=== PATIENT | male | born 1965 | race Two or more races ===

== ENCOUNTER 2018-07-16 19:21 | Inpatient (IN) | payer MEDICARE, MEDICAID ==
[~2018-07-16] VITALS: Ht 170.2 cm; Wt 71.2 kg
--- NOTE | 2018-07-16 19:29 | NUR ---
RESPIRATORY NOTE: PT. WAS BROUGHT IN VIA AMBULANCE IN STABLE CONDITION. PT HAS INCREASED HR OF 125. ALL OTHER VS ALL WNL. PT HAS A PORTEX CUFFED #6. VENT SETTING ARE TOLERATED WELL BY PT. VENT CIRCUIT AND SX TUBBING SECURE AND OUT OF THE WAY. MOTHER IS AT BEDSIDE. NO S/S OF RESPIRATORY DISTRESS NOTED AT THIS TIME. WILL CONTINUE TO MONITOR.
--- NOTE | 2018-07-16 19:45 | NUR ---
ED Nurse Note: Unable to establish iv access. marketing strategist and ERMD made aware. Collected blood; sent down to lab.
--- NOTE | 2018-07-16 20:00 | NUR ---
ED Nurse Note: 2nd blood culture sent down to lab.
--- NOTE | 2018-07-16 20:09 | Emergency Room Report ---
History of Present Illness General Chief Complaint: General Complaint Source: Family Member, EMS Present Illness HPI Patient was brought by paramedics. He's vent dependent. As they were doing some weaning maneuvers he became diaphoretic. They think he might of had a fever at the time also. Family denies any cough, vomiting, diarrhea. The patient does not have a Bhagat catheter. The urine is not changed in color. Mom feels the weaning was stressful for the patient. The patient is a vegetative state and unable to give any history. Based on records he has a history of paraplegia, respiratory failure and paraplegia. Allergies: Uncoded Allergies: SEAFOOD (Allergy, Unknown, 07/16/18) Patient History Limited by: medical condition Past Medical History: see triage record Past Surgical History: other - Tracheostomy and Gastrostomy tube Social History Narrative Pulmonary rehab [facility] Reviewed Nursing Documentation: PMH: Agreed; PSxH: Agreed Nursing Documentation-PM Past Medical History: No History, Except For Hx Hypertension: Yes - PNA Hx Gastrointestinal Problems: Yes - dysphagia, G-tube Hx Neurological Problems: Yes - Paraplegia Review of Systems All Other Systems: limited Physical Exam Vital Signs Date Time Temp Pulse Resp B/P (MAP) Pulse Ox O2 Delivery O2 Flow Rate FiO2 07/16/18 19:06 97.0 147 12 174/97 98 Mechanical Ventilator 100 Sp02 EP Interpretation: reviewed, normal General Appearance: other - Vegetative state, Chronically Ill Eyes: bilateral eye normal inspection, bilateral eye PERRL, bilateral eye other - Eyes open ENT: moist mucus membranes Neck: supple, tracheotomy Respiratory: decreased breath sounds Cardiovascular #1: regular rate, rhythm, no edema Cardiovascular #2: 2+ radial (R); 1+ femoral (R) Gastrointestinal: non tender, soft, other - Gastrostomy tube, decreased bowel sounds Genitourinary: other - Uncircumcised Musculoskeletal: other - Atrophy and extensor contracture Neurologic: motor weakness - Flaccid, sensory deficit, other - Eyes open but unresponsive to voice or painful stimuli, Psychiatric: other - Unresponsive but eyes open Skin: normal color, warm/dry Procedures Central Line Central Line : Consent: Emergent Central Line Lumen: triple Maximal Sterile Barrier Tech: yes cap, yes mask, yes sterile gown, yes sterile gloves, yes large sterile sheet, yes hand hygiene, yes chlorhexidine prep Central Line Postion: femoral (R) Anesthesia: None Complications: none Central Line Post Position: sutured, good blood return Attempts: One Patient Tolerated: Well Complications: None Progress Ultrasound used. EBL = 2 ml Medical Decision Making Diagnostic Impression: Primary Impression: NSTEMI (non-ST elevated myocardial infarction) Additional Impressions: Elevated lactic acid level Left pulmonary infiltrate on CXR Vegetative state ER Course Patient presents with a pheresis and possible fever. Differential includes sepsis, acute myocardial infarction, urinary tract infection, pneumonia amongst others. Complicated patient to evaluate as he is unable to give history. Evaluation will be with EKG, chest x-ray and labs. He's placed on the ventilator as prior vent settings and a blood gas will be obtained. Based upon lab results antibiotics may be in order. EKG with sinus tachycardia rate of 124. No acute changes. CXR with L infiltrate possible effusion. Lactate elevated. White count elevated left shift. Elevated bicarbonate. Some pyuria. Troponin positive. Aspirin given rectally. EKG without acute changes. No IV access. CVP begun. Bolus start. Antibiotics begun. Repeat lactate normal. Blood gas with combined alkalosis. Patient admitted to stepdown unit under the care of Dr. Suarez. Laboratory Tests Test 07/16/18 19:22 07/16/18 19:45 07/16/18 20:15 07/16/18 22:00 Arterial Blood pH 7.529 (7.350-7.450) Arterial Blood Partial Pressure CO2 45.4 mmHg (35.0-45.0) H Arterial Blood Partial Pressure O2 93.7 mmHg (75.0-100.0) Arterial Blood HCO3 37.0 mmol/L (22.0-26.0) H Arterial Blood Oxygen Saturation 97.5 % (95-100) Arterial Blood Base Excess 12.9 (-2-2) *H Nima Test Positive White Blood Count 11.2 K/UL (4.8-10.8) H Red Blood Count 4.18 M/UL (4.70-6.10) L Hemoglobin 11.9 G/DL (14.2-18.0) L Hematocrit 36.6 % (42.0-52.0) L Mean Corpuscular Volume 88 FL (80-99) Mean Corpuscular Hemoglobin 28.4 PG (27.0-31.0) Mean Corpuscular Hemoglobin Concent 32.4 G/DL (32.0-36.0) Red Cell Distribution Width 14.0 % (11.6-14.8) Platelet Count 460 K/UL (150-450) H Mean Platelet Volume 4.6 FL (6.5-10.1) L Neutrophils (%) (Auto) 84.1 % (45.0-75.0) H Lymphocytes (%) (Auto) 11.4 % (20.0-45.0) L Monocytes (%) (Auto) 3.9 % (1.0-10.0) Eosinophils (%) (Auto) 0.0 % (0.0-3.0) Basophils (%) (Auto) 0.6 % (0.0-2.0) Prothrombin Time 10.3 SEC (9.30-11.50) Prothrombin Time INR 1.0 (0.9-1.1) PTT 25 SEC (23-33) Sodium Level 141 MMOL/L (136-145) Potassium Level 4.1 MMOL/L (3.5-5.1) Chloride Level 97 MMOL/L (98-107) L Carbon Dioxide Level 35 MMOL/L (21-32) H Anion Gap 9 mmol/L (5-15) Blood Urea Nitrogen 34 mg/dL (7-18) H Creatinine 0.5 MG/DL (0.55-1.30) L Estimate Glomerular Filtration Rate > 60 mL/min (>60) Glucose Level 168 MG/DL (74-106) H Lactic Acid Level 2.50 mmol/L (0.4-2.0) H 1.70 mmol/L (0.66-2.22) Calcium Level 10.0 MG/DL (8.5-10.1) Magnesium Level 2.4 MG/DL (1.8-2.4) Total Bilirubin 0.3 MG/DL (0.2-1.0) Aspartate Amino Transferase (AST) 66 U/L (15-37) H Alanine Aminotransferase (ALT) 144 U/L (12-78) H Alkaline Phosphatase 169 U/L (46-116) H Total Creatine Kinase 70 U/L (26-308) Troponin I 0.325 ng/mL (0.000-0.056) Pro-B-Type Natriuretic Peptide 542 pg/mL (0-125) H Total Protein 8.2 G/DL (6.4-8.2) Albumin 3.5 G/DL (3.4-5.0) Globulin 4.7 g/dL Albumin/Globulin Ratio 0.7 (1.0-2.7) L Lipase 198 U/L (73-393) Urine Color Yellow Urine Appearance Cloudy Urine pH 5 (4.5-8.0) Urine Specific [place] 1.010 (1.005-1.035) Urine Protein 2+ (NEGATIVE) H Urine Glucose (UA) 4+ (NEGATIVE) H Urine Ketones Negative (NEGATIVE) Urine Blood 4+ (NEGATIVE) H Urine Nitrite Negative (NEGATIVE) Urine Bilirubin Negative (NEGATIVE) Urine Urobilinogen Normal MG/DL (0.0-1.0) Urine Leukocyte Esterase 1+ (NEGATIVE) H Urine RBC 30-40 /HPF (0 - 0) H Urine WBC 5-10 /HPF (0 - 0) H Urine Squamous Epithelial Cells Few /LPF (NONE/OCC) Urine Amorphous Sediment Moderate /LPF (NONE) H Urine Bacteria Moderate /HPF (NONE) H Microbiology Date/Time Source Procedure Growth Status 07/16/18 21:05 Nasal Nares Influenza Types A,B Antigen (ELADIO) - Final Complete EKG Diagnostic Results Rate: tachycardiac ST Segments: no acute changes Rhythm Strip Diag. Results EP Interpretation: yes Rhythm: no PVC's, no ectopy - sinus tachycardia, other - Sinus tachycardia Chest X-Ray Diagnostic Results Chest X-Ray Diagnostic Results : Chest X-Ray Ordered: Yes # of Views/Limited/Complete: 1 View Indication: Other EP Interpretation: Yes Interpretation: no effusion, no pneumothorax, other - LLL infiltrate with possible effusion Impression: Other Electronically Signed by: Electronically signed by Ganga Thao MD Last Vital Signs Date Time Temp Pulse Resp B/P (MAP) Pulse Ox O2 Delivery O2 Flow Rate FiO2 07/17/18 01:00 Mechanical Ventilator 07/17/18 00:45 98.2 115 14 101/56 (71) 100 07/17/18 00:45 30 Status: improved Disposition: ADMITTED INPATIENT Condition: Serious Ganga Thao MD Jul 16, 2018 20:09
--- NOTE | 2018-07-16 20:11 | NUR ---
Twice attempted to start IV line with no success, bloods abd blood cultures obtained, was informed.
--- NOTE | 2018-07-16 20:15 | NUR ---
ED Nurse Note: Urine, CRE VRE MRSA and flu collected; sent down to lab.
[2018-07-16 20:37] LABS: BASOPHILS % (AUTO) 0.6 % (0.0-2.0); HEMATOCRIT 36.6 % (42.0-52.0); HEMOGLOBIN 11.9 G/DL (14.2-18.0); LYMPHOCYTES % (AUTO) 11.4 % (20.0-45.0); MEAN CORPUSCULAR VOLUME 88 FL (80-99); MONOCYTES % (AUTO) 3.9 % (1.0-10.0); NEUTROPHILS % (AUTO) 84.1 % (45.0-75.0); PLATELET COUNT 460 K/UL (150-450); RED BLOOD COUNT 4.18 M/UL (4.70-6.10); WHITE BLOOD COUNT 11.2 K/UL (4.8-10.8)
[2018-07-16 20:48] LABS: APPEARANCE,URINE CLOUDY; BILIRUBIN, URINE NEGATIVE (NEGATIVE); COLOR,URINE YELLOW; GLUCOSE, URINE (UA) 4+ (NEGATIVE); KETONES,URINE NEGATIVE (NEGATIVE); LEUKOCYTE ESTERASE ,URINE 1+ (NEGATIVE); NITRITE,URINE NEGATIVE (NEGATIVE); PH,URINE 5 (4.5-8.0); PROTEIN,URINE 2+ (NEGATIVE); UROBILINOGEN,URINE NORMAL MG/DL (0.0-1.0)
[2018-07-16 20:48] LABS: ANION GAP 9 mmol/L (5-15); BLOOD UREA NITROGEN 34 mg/dL (7-18); CARBON DIOXIDE 35 MMOL/L (21-32); CHLORIDE 97 MMOL/L (98-107); CREATININE 0.5 MG/DL (0.55-1.30); POTASSIUM 4.1 MMOL/L (3.5-5.1); SODIUM 141 MMOL/L (136-145)
[2018-07-16 20:58] LABS: ALANINE AMINOTRANSFERASE 144 U/L (12-78); ALBUMIN 3.5 G/DL (3.4-5.0); ALBUMIN/GLOBULIN RATIO 0.7 (1.0-2.7); ALKALINE PHOSPHATASE 169 U/L (46-116); ASPARTATE AMINO TRANSFERASE 66 U/L (15-37); BILIRUBIN,TOTAL 0.3 MG/DL (0.2-1.0); CREATINE KINASE 70 U/L (26-308)
--- NOTE | 2018-07-16 21:02 | Diagnostic Imaging Report ---
History: ALOC Exam: XR CXR 1 VIEW Comparison: None available FINDINGS: Left lower lobe collapse. Possible small left pleural effusion. The right lung appears clear. Tracheostomy noted. Cardiac silhouette appears upper limits for technique. Pulmonary vascularity appears within limits. Appearance of percutaneous gastrostomy tube. IMPRESSION: Left lower lobe collapse. Possible small left pleural effusion. The right lung appears clear. Tracheostomy noted.
--- NOTE | 2018-07-16 21:05 | NUR ---
ED Nurse Note: ERMD at bedside starting central line.
[2018-07-16] MEDS ORDERED: Piperacillin/Tazobactam 3.375 GM in NS 110 ML IVPB ONE (21:15)
--- NOTE | 2018-07-16 22:00 | NUR ---
ED Nurse Note:
--- NOTE | 2018-07-16 22:00 | NUR ---
ED Nurse Note: Repeat lactic collected; sent down to lab.
[2018-07-16 22:48] VITALS: BP 174/97
--- NOTE | 2018-07-16 23:12 | NUR ---
ED Nurse Note: RT at bedside for ABG
--- NOTE | 2018-07-17 00:15 | NUR ---
TRANSFER TO FLOOR: Patient transfered to [facility] as ordered per MD Erick. Report given to MELECIO Prescott. Belongings list completed with receiving RN. NAD. KRISHNAN
[2018-07-17 00:45] VITALS: BP 101/56
--- NOTE | 2018-07-17 00:45 | NUR ---
NURSE NOTES: Received report from Sandra Mujica RN, pt. transferred from ER, pt. is awake in bed, opens eyes spontaneously- withdraws to pain, no signs or symptoms of acute cardiac or respiratory distress noted, cardiac cath lab radiology technologist placed, full body assessment done- skin intact, bed bath given and oral care provided, VS taken, pt. appears to be tolerating current vent settings well- AC 10, TV 550, Fio2 30% and peep 5- no respiratory distress noted, G tube intact and patent- no residual noted, condom cath placed and appears to be draining to gravity, RT. femoral TLC intact and patent, pt. oriented to room and pt. teaching done, family at bedside, safety measures continued, will continue with plan of care.
[2018-07-17] MEDS ORDERED: ACETAMINOP160 MG/5 M ORAL (01:46)
[2018-07-17] MEDS ORDERED: LANSOPRAZOLE30 MG ORAL (01:46)
[2018-07-17] MEDS ORDERED: PRO-AMATINE5 M1 GT (01:46)
[2018-07-17] MEDS ORDERED: SENNA-S TABLET1 EACH PO (01:46)
[2018-07-17] MEDS ORDERED: BISACODYL10 M1 RC (01:46)
[2018-07-17] MEDS ORDERED: IPRATROPIU0.2 MG/1 M HHN (01:46)
[2018-07-17] MEDS ORDERED: MAG-OXIDE400 M1 PO (01:46)
[2018-07-17] MEDS ORDERED: METAMUCIL1 PK1 GT (01:46)
[2018-07-17] MEDS ORDERED: LUBRICANT EYE1 EACH OP (01:46)
[2018-07-17] MEDS ORDERED: CHLORHEXIDINE1 EACH TP (01:46)
[2018-07-17] MEDS ORDERED: MINERAL OIL30 ML GT (01:46)
[2018-07-17] MEDS ORDERED: DOCUSATE SODIU100 M2 ORAL (01:46)
[2018-07-17] MEDS ORDERED: PYRIDOXINE HCL MC (01:46)
[2018-07-17] MEDS ORDERED: GUAIFENESI100 MG/5 M ORAL (01:46)
[2018-07-17] MEDS ORDERED: NORVASC2.5 MG ORAL (01:46)
[2018-07-17] MEDS ORDERED: PRO-AMATINE2.5 MG ORAL (01:46)
[2018-07-17] MEDS ORDERED: LIPITOR80 MG ORAL (01:46)
--- NOTE | 2018-07-17 02:00 | NUR ---
NURSE NOTES: left msg for DR. Lacy for admitting orders- waiting for call back form doctor.
--- NOTE | 2018-07-17 02:55 | NUR ---
NURSE NOTES: 2nd msg left for DR. Lacy for admitting orders- waiting for call back from doctor.
--- NOTE | 2018-07-17 03:15 | NUR ---
NURSE NOTES: Notified roundhouse supervisor Mrs. Taya Bird, message left twice for DR. Suarez for admitting orders and no call back get yet.
[2018-07-17 04:00] VITALS: BP 104/60
--- NOTE | 2018-07-17 05:14 | NUR ---
RESPIRATORY NOTE: PT, REMAINED STABLE ON CMV WITH CURRENT SETTING. VENT CIRCUIT AND SX TUBBING SECURE AND OUT OF THE WAY. SX PRN. NO S/S OF RESPIRATORY DISTRESS NOTED AT THIS TIME.
--- NOTE | 2018-07-17 06:05 | NUR ---
NURSE NOTES: 3rd msg left for DR. Suarez for admitting orders- waiting for call back from doctor.
--- NOTE | 2018-07-17 07:04 | NUR ---
NURSE NOTES: lwft a message to dr valente regarding admission orders. awaitng callback and new orders as of this time.
--- NOTE | 2018-07-17 07:05 | NUR ---
NURSE NOTES: received patient report from kalpana parada. patient is noted to be on vent machine. no acute events reported throughout the night. ST on low 100s. under the care of dr valente. message left to dr valente regarding admission orders. awaiting callback. family member in the room. will continue to monitor.
--- NOTE | 2018-07-17 07:11 | NUR ---
HAND-OFF: Report given to Rivera MAJANO, pt. remains stable and no signs and symptoms of acute distress noted- aware to f/u on admission orders.
[2018-07-17 08:00] VITALS: BP 97/63
[2018-07-17] MEDS ORDERED: guaiFENesin 100mg/5ml Liq ud GT PRN (08:15)
[2018-07-17] MEDS ORDERED: Acetaminophen 650mg/20.3ml GT PRN ×2 (08:15→08:45)
[2018-07-17] MEDS ORDERED: Albuterol/Ipratropium 3ml neb HHN PRN (08:15)
[2018-07-17] MEDS ORDERED: Sennosides 8.6mg tab GT PRN (08:15)
[2018-07-17] MEDS: Magnesium Oxide 400mg tab GT SCH (08:59)
[2018-07-17] MEDS: Pyridoxine 50mg tab GT SCH (09:00)
[2018-07-17] MEDS ORDERED: Vancomycin 1.5 GM/D5W 250ML IVPB SCH (09:00)
[2018-07-17] MEDS: D5 1/2NS 1,000 ML IV SCH ×2 (09:02→21:49)
--- NOTE | 2018-07-17 09:43 | NUR ---
CASE MANAGEMENT:REVIEW BIBA FROM [facility] PMH: TRACH VENT GTUBE CC; TACHYCARDIA SI: SEPSIS. NSTEMI. 97.0 147 12 174/97 98% ON VENT SUPPORT WBC 11.2 BUN 34 LACTIC ACID 2.50 TROPONIN 0.325 IS: 1L NS BOLUS IV LEVAQUIN IV ZOSYN ASA WA URINE CX CXR BLOOD CX : TO STEP DOWN UNIT INTERQUAL CRITERIA MET
[2018-07-17 10:04] LABS: BASOPHILS % (AUTO) 0.5 % (0.0-2.0); EOSINOPHILS % (AUTO) 0.8 % (0.0-3.0); HEMOGLOBIN 9.5 G/DL (14.2-18.0); LYMPHOCYTES % (AUTO) 31.6 % (20.0-45.0); MEAN CORPUSCULAR VOLUME 88 FL (80-99); MONOCYTES % (AUTO) 6.9 % (1.0-10.0); NEUTROPHILS % (AUTO) 60.2 % (45.0-75.0); PLATELET COUNT 380 K/UL (150-450); RED BLOOD COUNT 3.31 M/UL (4.70-6.10); RED CELL DISTRIBUTION WIDTH 14.5 % (11.6-14.8)
[2018-07-17 10:10] LABS: ALANINE AMINOTRANSFERASE 103 U/L (12-78); ALBUMIN 2.9 G/DL (3.4-5.0); ALBUMIN/GLOBULIN RATIO 0.7 (1.0-2.7); ALKALINE PHOSPHATASE 119 U/L (46-116); ANION GAP 8 mmol/L (5-15); ASPARTATE AMINO TRANSFERASE 42 U/L (15-37); BILIRUBIN,TOTAL 0.5 MG/DL (0.2-1.0); BLOOD UREA NITROGEN 36 mg/dL (7-18); CARBON DIOXIDE 34 MMOL/L (21-32); CHLORIDE 99 MMOL/L (98-107); CREATININE 0.4 MG/DL (0.55-1.30); POTASSIUM 3.2 MMOL/L (3.5-5.1); SODIUM 141 MMOL/L (136-145)
[2018-07-17] MEDS: Albuterol/Ipratropium 3ml neb HHN SCH ×3 (10:44→23:01)
[2018-07-17] MEDS ORDERED: Docusate 100mg/10ml Liq NG PRN (10:45)
[2018-07-17] MEDS: Piperacillin/Tazobactam 3.375 GM in D5W 110 ML IVPB SCH ×2 (11:25→18:21)
[2018-07-17 12:00] VITALS: BP 111/68
[2018-07-17] MEDS: Heparin 5000 units/ml inj SUBQ SCH ×2 (13:27→21:48)
--- NOTE | 2018-07-17 14:27 | NUR ---
NURSE NOTES: left a message to dr valente regarding trop level of 0.353 and k level of 3.2. awaitng callback and new orders.
[2018-07-17] MEDS ORDERED: Heparin 2000 units/Ns 1000ml INJ PRN (15:15)
[2018-07-17] MEDS ORDERED: Lidocaine 1% Plain 30 ml INJ PRN (15:15)
--- NOTE | 2018-07-17 15:15 | History & Physical ---
History and Physical History & Physicial Dictated for Int Med-Dr uSarez no. [id number]. Zeyad Simmons MD Jul 17, 2018 15:15
--- NOTE | 2018-07-17 15:45 | Consultation ---
History of Present Illness General Date patient seen: Jul 17, 2018 Chief Complaint: General Complaint Present Illness HPI 52 year old male with hx of paraplegia, Chronic respiratory failure, [facility] resident was brought in by paramedics because of episodes of fever and acute respiratory failure. Pt had leukocytosis on presentation with LLL infiltrate and admitted to [facility] for further management. Allergies: Uncoded Allergies: SEAFOOD (Allergy, Unknown, 07/16/18) Medication History Scheduled Acetaminophen 160MG/5ML* (Acetaminophen*), 5 ML ORAL EVERY 6 HOURS, (Reported) Amlodipine Besylate (Norvasc), 2.5 MG ORAL DAILY, (Reported) Atorvastatin (Lipitor), 40 MG ORAL BEDTIME, (Reported) Bisacodyl (Bisacodyl), 10 MG RC DAILY, (Reported) Carboxymethylcellulose Sodium (Lubricant Eye Drops), 1 EACH OP BID, (Reported) Guaifenesin* (Guaifenesin), 5 ML ORAL Q4H, (Reported) Lansoprazole* (Lansoprazole*), 30 MG ORAL DAILY, (Reported) Midodrine (Midodrine HCl), 2.5 MG ORAL THREE TIMES A DAY, (Reported) Scheduled PRN Ipratropium [place]wyn 0.5MG/2.5ML (Ipratropium Dillwyn 0.5MG/2.5ML), 0.5 MG HHN Q6H PRN for Shortness of Breath, (Reported) Miscellaneous Medications Chlorhexidine Gluconate (Chlorhexidine Gluconate), 1 EACH TP, (Reported) Docusate Sodium (Docusate Sodium), 100 MG ORAL, (Reported) Magnesium Oxide (Mag-Oxide), 400 MG PO, (Reported) Midodrine (Midodrine HCl), 5 MG GT, (Reported) Mineral Oil (Mineral Oil), 30 ML GT, (Reported) Psyllium (Metamucil Powder), 1 PKT GT, (Reported) Pyridoxine HCl (Pyridoxine HCl), GM MC, (Reported) Sennosides/Docusate Sodium (Senna-S Tablet), 1 EACH PO, (Reported) Patient History Healthcare decision maker see above Resuscitation status Full Code Advanced Directive on File Past Medical/Surgical History Past Medical/Surgical History: (1) Chronic respiratory failure (2) Feeding by G-tube (3) Quadriplegia (4) Vegetative state Review of Systems All Other Systems: negative except mentioned in HPI Physical Exam General Appearance: WD/WN Lines, tubes and drains: peripheral HEENT: normocephalic Neck: non-tender, normal alignment, supple Respiratory/Chest: chest wall non-tender, lungs clear Breasts: no masses Cardiovascular/Chest: normal peripheral pulses, normal rate, regular rhythm Abdomen: normal bowel sounds, non tender Genitourinary/Rectal: normal genital exam, normal prostate exam Extremities: non-tender Skin Exam: normal pigmentation Neurologic: general manager oracle data cloud II-XII grossly normal Last 24 Hour Vital Signs Date Time Temp Pulse Resp B/P (MAP) Pulse Ox O2 Delivery O2 Flow Rate FiO2 07/17/18 15:30 88 13 100 Mechanical Ventilator 30 07/17/18 15:21 83 13 100 Mechanical Ventilator 30 07/17/18 15:17 81 10 30 07/17/18 13:48 104 13 30 07/17/18 12:00 97.7 100 14 111/68 (82) 100 07/17/18 12:00 30 07/17/18 12:00 Mechanical Ventilator 07/17/18 12:00 99 07/17/18 10:54 104 13 100 Mechanical Ventilator 30 07/17/18 10:46 103 13 100 Mechanical Ventilator 30 07/17/18 10:45 103 13 30 07/17/18 09:12 105 13 30 07/17/18 08:00 Mechanical Ventilator 07/17/18 08:00 98.1 100 14 97/63 (74) 100 07/17/18 08:00 30 07/17/18 07:56 108 07/17/18 07:13 107 11 30 07/17/18 05:14 116 11 30 07/17/18 04:00 98.8 112 14 104/60 (75) 100 07/17/18 04:00 Mechanical Ventilator 07/17/18 04:00 30 07/17/18 04:00 113 07/17/18 02:41 112 11 30 07/17/18 01:00 Mechanical Ventilator 07/17/18 00:45 98.2 115 14 101/56 (71) 100 07/17/18 00:45 30 07/17/18 00:45 112 07/17/18 00:45 Mechanical Ventilator 07/17/18 00:30 115 12 30 07/17/18 00:15 97.0 87 11 174/97 98 Mechanical Ventilator 30 07/16/18 22:53 114 11 30 07/16/18 22:48 108 12 Mechanical Ventilator 30 07/16/18 22:48 97.0 87 12 174/97 98 Mechanical Ventilator 30 07/16/18 21:13 108 12 30 07/16/18 19:29 125 13 30 07/16/18 19:29 125 13 Mechanical Ventilator 30 07/16/18 19:06 97.0 147 12 174/97 98 Mechanical Ventilator 100 Intake and Output 07/16/18 07/17/18 19:00 07:00 Output Total 150 ml Balance -150 ml Output Urine Total 150 ml # Voids 2 Laboratory Tests Test 07/16/18 19:22 07/16/18 19:45 07/16/18 20:15 07/16/18 22:00 Arterial Blood pH 7.529 (7.350-7.450) Arterial Blood Partial Pressure CO2 45.4 mmHg (35.0-45.0) H Arterial Blood Partial Pressure O2 93.7 mmHg (75.0-100.0) Arterial Blood HCO3 37.0 mmol/L (22.0-26.0) H Arterial Blood Oxygen Saturation 97.5 % (95-100) Arterial Blood Base Excess 12.9 (-2-2) *H Nima Test Positive White Blood Count 11.2 K/UL (4.8-10.8) H Red Blood Count 4.18 M/UL (4.70-6.10) L Hemoglobin 11.9 G/DL (14.2-18.0) L Hematocrit 36.6 % (42.0-52.0) L Mean Corpuscular Volume 88 FL (80-99) Mean Corpuscular Hemoglobin 28.4 PG (27.0-31.0) Mean Corpuscular Hemoglobin Concent 32.4 G/DL (32.0-36.0) Red Cell Distribution Width 14.0 % (11.6-14.8) Platelet Count 460 K/UL (150-450) H Mean Platelet Volume 4.6 FL (6.5-10.1) L Neutrophils (%) (Auto) 84.1 % (45.0-75.0) H Lymphocytes (%) (Auto) 11.4 % (20.0-45.0) L Monocytes (%) (Auto) 3.9 % (1.0-10.0) Eosinophils (%) (Auto) 0.0 % (0.0-3.0) Basophils (%) (Auto) 0.6 % (0.0-2.0) Prothrombin Time 10.3 SEC (9.30-11.50) Prothromb Time International Ratio 1.0 (0.9-1.1) Activated Partial Thromboplast Time 25 SEC (23-33) Sodium Level 141 MMOL/L (136-145) Potassium Level 4.1 MMOL/L (3.5-5.1) Chloride Level 97 MMOL/L (98-107) L Carbon Dioxide Level 35 MMOL/L (21-32) H Anion Gap 9 mmol/L (5-15) Blood Urea Nitrogen 34 mg/dL (7-18) H Creatinine 0.5 MG/DL (0.55-1.30) L Estimat Glomerular Filtration Rate > 60 mL/min (>60) Glucose Level 168 MG/DL (74-106) H Lactic Acid Level 2.50 mmol/L (0.4-2.0) H 1.70 mmol/L (0.66-2.22) Calcium Level 10.0 MG/DL (8.5-10.1) Magnesium Level 2.4 MG/DL (1.8-2.4) Total Bilirubin 0.3 MG/DL (0.2-1.0) Aspartate Amino Transf (AST/SGOT) 66 U/L (15-37) H Alanine Aminotransferase (ALT/SGPT) 144 U/L (12-78) H Alkaline Phosphatase 169 U/L (46-116) H Total Creatine Kinase 70 U/L (26-308) Troponin I 0.325 ng/mL (0.000-0.056) Pro-B-Type Natriuretic Peptide 542 pg/mL (0-125) H Total Protein 8.2 G/DL (6.4-8.2) Albumin 3.5 G/DL (3.4-5.0) Globulin 4.7 g/dL Albumin/Globulin Ratio 0.7 (1.0-2.7) L Lipase 198 U/L (73-393) Urine Color Yellow Urine Appearance Cloudy Urine pH 5 (4.5-8.0) Urine Specific [place] 1.010 (1.005-1.035) Urine Protein 2+ (NEGATIVE) H Urine Glucose (UA) 4+ (NEGATIVE) H Urine Ketones Negative (NEGATIVE) Urine Blood 4+ (NEGATIVE) H Urine Nitrite Negative (NEGATIVE) Urine Bilirubin Negative (NEGATIVE) Urine Urobilinogen Normal MG/DL (0.0-1.0) Urine Leukocyte Esterase 1+ (NEGATIVE) H Urine RBC 30-40 /HPF (0 - 0) H Urine WBC 5-10 /HPF (0 - 0) H Urine Squamous Epithelial Cells Few /LPF (NONE/OCC) Urine Amorphous Sediment Moderate /LPF (NONE) H Urine Bacteria Moderate /HPF (NONE) H Test 07/17/18 09:30 White Blood Count 12.0 K/UL (4.8-10.8) H Red Blood Count 3.31 M/UL (4.70-6.10) L Hemoglobin 9.5 G/DL (14.2-18.0) L Hematocrit 29.0 % (42.0-52.0) L Mean Corpuscular Volume 88 FL (80-99) Mean Corpuscular Hemoglobin 28.8 PG (27.0-31.0) Mean Corpuscular Hemoglobin Concent 32.8 G/DL (32.0-36.0) Red Cell Distribution Width 14.5 % (11.6-14.8) Platelet Count 380 K/UL (150-450) Mean Platelet Volume 5.3 FL (6.5-10.1) L Neutrophils (%) (Auto) 60.2 % (45.0-75.0) Lymphocytes (%) (Auto) 31.6 % (20.0-45.0) Monocytes (%) (Auto) 6.9 % (1.0-10.0) Eosinophils (%) (Auto) 0.8 % (0.0-3.0) Basophils (%) (Auto) 0.5 % (0.0-2.0) Sodium Level 141 MMOL/L (136-145) Potassium Level 3.2 MMOL/L (3.5-5.1) L Chloride Level 99 MMOL/L (98-107) Carbon Dioxide Level 34 MMOL/L (21-32) H Anion Gap 8 mmol/L (5-15) Blood Urea Nitrogen 36 mg/dL (7-18) H Creatinine 0.4 MG/DL (0.55-1.30) L Estimat Glomerular Filtration Rate > 60 mL/min (>60) Glucose Level 126 MG/DL (74-106) H Calcium Level 9.0 MG/DL (8.5-10.1) Phosphorus Level 3.0 MG/DL (2.5-4.9) Magnesium Level 2.2 MG/DL (1.8-2.4) Total Bilirubin 0.5 MG/DL (0.2-1.0) Aspartate Amino Transf (AST/SGOT) 42 U/L (15-37) H Alanine Aminotransferase (ALT/SGPT) 103 U/L (12-78) H Alkaline Phosphatase 119 U/L (46-116) H Troponin I 0.353 ng/mL (0.000-0.056) Total Protein 6.8 G/DL (6.4-8.2) Albumin 2.9 G/DL (3.4-5.0) L Globulin 3.9 g/dL Albumin/Globulin Ratio 0.7 (1.0-2.7) L Microbiology Date/Time Source Procedure Growth Status 07/16/18 21:05 Nasal Nares Influenza Types A,B Antigen (ELADIO) - Final Complete 07/16/18 20:15 Urine,Clean Catch Urine Culture - Preliminary Resulted 07/16/18 20:15 Rectum Received Height (Feet): 5 Height (Inches): 7.00 Weight (Pounds): 160 Medications Current Medications Medications (Trade) Dose Ordered Sig/Becca Route PRN Reason Start Time Stop Time Status Last Admin Dose Admin Acetaminophen (Tylenol) 650 mg Q6H PRN GT Mild Pain/Temp > 100.5 07/17/18 08:45 08/16/18 08:44 Albuterol/ Ipratropium (Albuterol/ Ipratropium) 3 ml Q4H PRN HHN Shortness of Breath 07/17/18 08:15 07/22/18 08:14 Albuterol/ Ipratropium (Albuterol/ Ipratropium) 3 ml Q8HRT HHN 07/17/18 09:00 07/22/18 08:59 07/17/18 15:20 Atorvastatin Calcium (Lipitor) 40 mg BEDTIME GT 07/17/18 21:00 08/16/18 20:59 Bisacodyl (Dulcolax) 10 mg DAILYPRN PRN RECTAL Constipation 07/17/18 08:15 08/16/18 08:14 Chlorhexidine Gluconate (Lawanda-Hex 2%) 1 applic DAILY@1999 TOPIC 07/17/18 20:00 08/16/18 19:59 Chlorhexidine Gluconate (Lawanda-Hex 2%) 1 applic DAILY@1999 TOPIC 07/17/18 20:00 08/16/18 19:59 Dextrose/Sodium Chloride 1,000 ml @ 75 mls/hr [id number] IV 07/17/18 08:00 08/16/18 07:59 07/17/18 09:02 Docusate Sodium (Colace) 200 mg TWICE A DAY PRN NG Constipation 07/17/18 10:45 08/16/18 10:44 Guaifenesin (Robitussin) 100 mg Q24H PRN GT For Cough 07/17/18 08:15 08/16/18 08:14 Heparin Sodium (Porcine) (Heparin 5000 units/ml) 5,000 units EVERY 8 HOURS SUBQ 07/17/18 14:00 08/16/18 13:59 07/17/18 13:27 Heparin Sodium/ Sodium Chloride (Heparin 2000 units/Ns 1000ml premix) 2,000 unit ONCE PRN INJ PICC LINE 07/17/18 15:15 07/19/18 23:59 Lansoprazole (Prevacid) 30 mg DAILY GT 07/17/18 09:00 08/16/18 08:59 07/17/18 09:00 Lidocaine HCl (Xylocaine 1% 30ml) 30 ml ONCE PRN INJ PICC LINE 07/17/18 15:15 07/19/18 23:59 Magnesium Oxide (Mag-Ox 400mg) 400 mg DAILY GT 07/17/18 09:00 08/16/18 08:59 07/17/18 08:59 Midodrine (Pro-Amatine) 5 mg THREE TIMES A DAY GT 07/17/18 09:00 08/16/18 08:59 07/17/18 13:21 Piperacillin Sod/ Tazobactam Sod 3.375 gm/Dextrose 110 ml @ 27.5 mls/hr Q8H IVPB 07/17/18 11:00 07/24/18 10:59 07/17/18 11:25 Potassium Chloride 100 ml @ 50 mls/hr Q2H IVPB 07/17/18 15:30 07/17/18 19:29 Pyridoxine HCl (Vitamin B6) 100 mg DAILY GT 07/17/18 09:00 08/16/18 08:59 07/17/18 09:00 Sennosides (Senokot) 17.2 mg DAILY PRN GT Constipation 07/17/18 08:15 08/16/18 08:14 Vancomycin HCl (Vanco rx to dose) 1 ea DAILY MISC 07/17/18 09:00 08/16/18 08:59 Vancomycin/Sodium Chloride 250 ml @ 166.667 mls/hr Q8H IVPB 07/17/18 17:00 07/22/18 16:59 Vitamin D (Vitamin D) 1,000 intlu DAILY ORAL 07/18/18 09:00 08/17/18 08:59 Assessment/Plan Problem List: (1) Acute on chronic respiratory failure ICD Codes: J96.20 - Acute and chronic respiratory failure, unspecified whether with hypoxia or hypercapnia SNOMED: 22966436 (2) Healthcare-associated pneumonia ICD Codes: J18.9 - Pneumonia, unspecified organism SNOMED: 325887827 (3) Sepsis ICD Codes: A41.9 - Sepsis, unspecified organism SNOMED: 68713803 (4) Feeding by G-tube ICD Codes: Z93.1 - Gastrostomy status SNOMED: 238928645, 292398278 (5) Quadriplegia ICD Codes: G82.50 - Quadriplegia, unspecified SNOMED: 01147284 (6) Vegetative state ICD Codes: R40.3 - Persistent vegetative state SNOMED: 38505563 Respiratory: monitor respiratory rate, adjust FIO2, CXR Cardiac: continue to monitor HR/BP Renal: F/U I&O, keep IV fluid Infectious Disease: check cultures, continue antibiotics Gastrointestinal: continue feedings/current rate Endocrine: monitor blood sugar Hematologic: monitor H/H Neurologic: PRN Ativan Affect: PRN ativan Time Spent (Minutes): 40 Notes Reviewed: hunting and fishing guide Milena Ross MD Jul 17, 2018 15:45
--- NOTE | 2018-07-17 15:57 | Cardiac Electrophysiology PN ---
Subjective Subjective [id number] Objective Last 24 Hour Vital Signs Date Time Temp Pulse Resp B/P (MAP) Pulse Ox O2 Delivery O2 Flow Rate FiO2 07/17/18 15:30 88 13 100 Mechanical Ventilator 30 07/17/18 15:21 83 13 100 Mechanical Ventilator 30 07/17/18 15:17 81 10 30 07/17/18 13:48 104 13 30 07/17/18 12:00 97.7 100 14 111/68 (82) 100 07/17/18 12:00 30 07/17/18 12:00 Mechanical Ventilator 07/17/18 12:00 99 07/17/18 10:54 104 13 100 Mechanical Ventilator 30 07/17/18 10:46 103 13 100 Mechanical Ventilator 30 07/17/18 10:45 103 13 30 07/17/18 09:12 105 13 30 07/17/18 08:00 Mechanical Ventilator 07/17/18 08:00 98.1 100 14 97/63 (74) 100 07/17/18 08:00 30 07/17/18 07:56 108 07/17/18 07:13 107 11 30 07/17/18 05:14 116 11 30 07/17/18 04:00 98.8 112 14 104/60 (75) 100 07/17/18 04:00 Mechanical Ventilator 07/17/18 04:00 30 07/17/18 04:00 113 07/17/18 02:41 112 11 30 07/17/18 01:00 Mechanical Ventilator 07/17/18 00:45 98.2 115 14 101/56 (71) 100 07/17/18 00:45 30 07/17/18 00:45 112 07/17/18 00:45 Mechanical Ventilator 07/17/18 00:30 115 12 30 07/17/18 00:15 97.0 87 11 174/97 98 Mechanical Ventilator 30 07/16/18 22:53 114 11 30 07/16/18 22:48 108 12 Mechanical Ventilator 30 07/16/18 22:48 97.0 87 12 174/97 98 Mechanical Ventilator 30 07/16/18 21:13 108 12 30 07/16/18 19:29 125 13 30 07/16/18 19:29 125 13 Mechanical Ventilator 30 07/16/18 19:06 97.0 147 12 174/97 98 Mechanical Ventilator 100 Intake and Output 07/16/18 07/17/18 19:00 07:00 Output Total 150 ml Balance -150 ml Output Urine Total 150 ml # Voids 2 Laboratory Tests Test 07/16/18 19:22 07/16/18 19:45 07/16/18 20:15 07/16/18 22:00 Arterial Blood pH 7.529 (7.350-7.450) Arterial Blood Partial Pressure CO2 45.4 mmHg (35.0-45.0) H Arterial Blood Partial Pressure O2 93.7 mmHg (75.0-100.0) Arterial Blood HCO3 37.0 mmol/L (22.0-26.0) H Arterial Blood Oxygen Saturation 97.5 % (95-100) Arterial Blood Base Excess 12.9 (-2-2) *H Nima Test Positive White Blood Count 11.2 K/UL (4.8-10.8) H Red Blood Count 4.18 M/UL (4.70-6.10) L Hemoglobin 11.9 G/DL (14.2-18.0) L Hematocrit 36.6 % (42.0-52.0) L Mean Corpuscular Volume 88 FL (80-99) Mean Corpuscular Hemoglobin 28.4 PG (27.0-31.0) Mean Corpuscular Hemoglobin Concent 32.4 G/DL (32.0-36.0) Red Cell Distribution Width 14.0 % (11.6-14.8) Platelet Count 460 K/UL (150-450) H Mean Platelet Volume 4.6 FL (6.5-10.1) L Neutrophils (%) (Auto) 84.1 % (45.0-75.0) H Lymphocytes (%) (Auto) 11.4 % (20.0-45.0) L Monocytes (%) (Auto) 3.9 % (1.0-10.0) Eosinophils (%) (Auto) 0.0 % (0.0-3.0) Basophils (%) (Auto) 0.6 % (0.0-2.0) Prothrombin Time 10.3 SEC (9.30-11.50) Prothromb Time International Ratio 1.0 (0.9-1.1) Activated Partial Thromboplast Time 25 SEC (23-33) Sodium Level 141 MMOL/L (136-145) Potassium Level 4.1 MMOL/L (3.5-5.1) Chloride Level 97 MMOL/L (98-107) L Carbon Dioxide Level 35 MMOL/L (21-32) H Anion Gap 9 mmol/L (5-15) Blood Urea Nitrogen 34 mg/dL (7-18) H Creatinine 0.5 MG/DL (0.55-1.30) L Estimat Glomerular Filtration Rate > 60 mL/min (>60) Glucose Level 168 MG/DL (74-106) H Lactic Acid Level 2.50 mmol/L (0.4-2.0) H 1.70 mmol/L (0.66-2.22) Calcium Level 10.0 MG/DL (8.5-10.1) Magnesium Level 2.4 MG/DL (1.8-2.4) Total Bilirubin 0.3 MG/DL (0.2-1.0) Aspartate Amino Transf (AST/SGOT) 66 U/L (15-37) H Alanine Aminotransferase (ALT/SGPT) 144 U/L (12-78) H Alkaline Phosphatase 169 U/L (46-116) H Total Creatine Kinase 70 U/L (26-308) Troponin I 0.325 ng/mL (0.000-0.056) Pro-B-Type Natriuretic Peptide 542 pg/mL (0-125) H Total Protein 8.2 G/DL (6.4-8.2) Albumin 3.5 G/DL (3.4-5.0) Globulin 4.7 g/dL Albumin/Globulin Ratio 0.7 (1.0-2.7) L Lipase 198 U/L (73-393) Urine Color Yellow Urine Appearance Cloudy Urine pH 5 (4.5-8.0) Urine Specific [place] 1.010 (1.005-1.035) Urine Protein 2+ (NEGATIVE) H Urine Glucose (UA) 4+ (NEGATIVE) H Urine Ketones Negative (NEGATIVE) Urine Blood 4+ (NEGATIVE) H Urine Nitrite Negative (NEGATIVE) Urine Bilirubin Negative (NEGATIVE) Urine Urobilinogen Normal MG/DL (0.0-1.0) Urine Leukocyte Esterase 1+ (NEGATIVE) H Urine RBC 30-40 /HPF (0 - 0) H Urine WBC 5-10 /HPF (0 - 0) H Urine Squamous Epithelial Cells Few /LPF (NONE/OCC) Urine Amorphous Sediment Moderate /LPF (NONE) H Urine Bacteria Moderate /HPF (NONE) H Test 07/17/18 09:30 White Blood Count 12.0 K/UL (4.8-10.8) H Red Blood Count 3.31 M/UL (4.70-6.10) L Hemoglobin 9.5 G/DL (14.2-18.0) L Hematocrit 29.0 % (42.0-52.0) L Mean Corpuscular Volume 88 FL (80-99) Mean Corpuscular Hemoglobin 28.8 PG (27.0-31.0) Mean Corpuscular Hemoglobin Concent 32.8 G/DL (32.0-36.0) Red Cell Distribution Width 14.5 % (11.6-14.8) Platelet Count 380 K/UL (150-450) Mean Platelet Volume 5.3 FL (6.5-10.1) L Neutrophils (%) (Auto) 60.2 % (45.0-75.0) Lymphocytes (%) (Auto) 31.6 % (20.0-45.0) Monocytes (%) (Auto) 6.9 % (1.0-10.0) Eosinophils (%) (Auto) 0.8 % (0.0-3.0) Basophils (%) (Auto) 0.5 % (0.0-2.0) Sodium Level 141 MMOL/L (136-145) Potassium Level 3.2 MMOL/L (3.5-5.1) L Chloride Level 99 MMOL/L (98-107) Carbon Dioxide Level 34 MMOL/L (21-32) H Anion Gap 8 mmol/L (5-15) Blood Urea Nitrogen 36 mg/dL (7-18) H Creatinine 0.4 MG/DL (0.55-1.30) L Estimat Glomerular Filtration Rate > 60 mL/min (>60) Glucose Level 126 MG/DL (74-106) H Calcium Level 9.0 MG/DL (8.5-10.1) Phosphorus Level 3.0 MG/DL (2.5-4.9) Magnesium Level 2.2 MG/DL (1.8-2.4) Total Bilirubin 0.5 MG/DL (0.2-1.0) Aspartate Amino Transf (AST/SGOT) 42 U/L (15-37) H Alanine Aminotransferase (ALT/SGPT) 103 U/L (12-78) H Alkaline Phosphatase 119 U/L (46-116) H Troponin I 0.353 ng/mL (0.000-0.056) Total Protein 6.8 G/DL (6.4-8.2) Albumin 2.9 G/DL (3.4-5.0) L Globulin 3.9 g/dL Albumin/Globulin Ratio 0.7 (1.0-2.7) L Microbiology Date/Time Source Procedure Growth Status 07/16/18 21:05 Nasal Nares Influenza Types A,B Antigen (ELADIO) - Final Complete 07/16/18 20:15 Urine,Clean Catch Urine Culture - Preliminary Resulted 07/16/18 20:15 Rectum Received Wale Severino MD Jul 17, 2018 15:57
[2018-07-17 16:00] VITALS: BP 106/67
[2018-07-17] MEDS: Vancomycin 750mg/NS 250ml IVPB SCH (17:18)
--- NOTE | 2018-07-17 18:36 | NUR ---
NURSE NOTES: left a message to ms elena ( ) to get a consent for PICC placement,ms elena has POA. awaiting callback and new orders as of this time.
--- NOTE | 2018-07-17 19:17 | NUR ---
HAND-OFF: Report given to wally parada.
--- NOTE | 2018-07-17 19:30 | History and Physical Report ---
DATE OF ADMISSION: 07/16/2018 CHIEF COMPLAINT: The patient is a 52-year-old male, presents with complaint of fever and respiratory failure. HISTORY OF PRESENT ILLNESS: The patient is chronically vent dependent. Much of the history and physical is taken from the patient's chart. The patient is a resident of [facility]. The patient apparently was undergoing some sort of suction procedure yesterday at [facility]. The patient was also being weaned from the vent. The patient became febrile. The patient also had acute respiratory distress. The patient was transported to [facility]. The patient is admitted for respiratory distress to rule out pneumonia versus sepsis. REVIEW OF SYSTEMS: Unable to assess secondary to the patient's mental status. PAST MEDICAL HISTORY: Significant for: 1. Chronic respiratory failure, vent dependent. 2. Dysphagia. 3. Paraplegia. 4. Hypercholesterolemia. 5. Hypertension. PAST SURGICAL HISTORY: Significant for: 1. Tracheostomy placement. 2. Percutaneous endoscopic gastrostomy placement. 3. Lumbar laminectomy. CURRENT MEDICATIONS: 1. Tylenol 650 mg per G-tube q.4 h. p.r.n. 2. Atorvastatin 40 mg per G-tube daily. 3. Cholecalciferol 1000 units per G-tube daily. 4. DuoNeb nebulized q.4 h. p.r.n. 5. Lansoprazole 30 mg per G-tube daily. 6. Magnesium oxide 400 mg per G-tube daily. 7. Midodrine 5 mg per G-tube q.8 h. p.r.n. 8. Norvasc 2.5 mg per G-tube daily. ALLERGIES: To sea food. SOCIAL HISTORY: The patient is a resident of [facility]. The patient denies tobacco or alcohol use. PHYSICAL EXAMINATION: VITAL SIGNS: Temperature 97.0 degrees, respirations 12, pulse tachycardic at 147 and blood pressure 174/97. GENERAL: The patient is well-developed, well-nourished male, who is intubated. HEENT: Eyes, pupils equal and responsive to light and accommodation. Extraocular movements are intact. NECK: Supple without lymphadenopathy. CHEST: Decreased breath sounds, left lower lobe. Otherwise, without wheezes or rales. CARDIOVASCULAR: Tachycardic, regular rhythm. S1 and S2 are normal without murmurs, rubs, gallops. ABDOMEN: Soft, nontender, and nondistended. Positive bowel sounds. No evidence of hepatosplenomegaly. Currently, no rebound or guarding noted. NEUROLOGICAL: The patient is paraplegic. Cranial nerves II through XII are grossly intact without focal deficits. LABORATORY STUDIES: WBC 11.2, hemoglobin 11.9, hematocrit 36.6, and platelets 460,000. Sodium 141, potassium 4.1, chloride 97, CO2 35, BUN 34, creatinine 0.5, glucose 168, troponin elevated at 0.325. BNP elevated at 542. Chest x-ray showed left lower lobe collapse. ASSESSMENT: This is a 52-year-old male. 1. Left lower lobe collapse. 2. Fever. 3. Respiratory failure. 4. Dysphagia. 5. Paraplegia. 6. Hypercholesterolemia. 7. Hypertension. TREATMENT: 1. Respiratory failure/collapse of the left lower lobe. A pulmonary consultation has been obtained with Dr. Milena Ross. This may be secondary to pneumonia versus pleural effusion. The patient has been placed empirically on intravenous vancomycin and Zosyn. We will follow recommendations of Pulmonary. 2. Dysphagia. The patient has a G-tube in place. Continue tube feeds as above. 3. Paraplegia. 4. Hypercholesteremia. Continue Lipitor as above. 5. Hypertension. Continue Norvasc as above. Zeyad Simmons M.D. DR: Landen JOB#: [id number] CC:
[2018-07-17 20:00] VITALS: BP 103/64
[2018-07-17] MEDS ORDERED: Dyna-Hex 2% Top Sol 2oz TOPIC SCH (20:00)
--- NOTE | 2018-07-17 20:00 | NUR ---
NURSE NOTES: PICC line consent obtained at the bedside by his Meera Nichole.
[2018-07-17] MEDS: Dyna-Hex 2% Top Sol 2oz TOPIC SCH (20:23)
[2018-07-17] MEDS: Atorvastatin 20mg tab GT SCH (21:48)
--- NOTE | 2018-07-17 22:30 | Consultation ---
DATE OF CONSULTATION: 07/17/2018 CARDIOLOGY CONSULTATION REFERRING PHYSICIAN: Wilner Suarez M.D. REASON FOR CONSULTATION: Elevated troponin. HISTORY OF PRESENT ILLNESS: The patient is a 52-year-old unfortunate gentleman with history of ventilator-dependent respiratory failure, status post tracheostomy as well as dysphagia, status post PEG placement, was sent from intermediate for fever. The patient was admitted and was found to have elevated troponin. The patient is unable to provide any information. REVIEW OF SYSTEMS: Cannot be obtained. PAST MEDICAL HISTORY: As mentioned above. FAMILY HISTORY: Noncontributory. PHYSICAL EXAMINATION: VITAL SIGNS: Blood pressure is 111/68, pulse is 80, respirations 14, and temperature 97.7 degrees. HEAD AND NECK: Showed no JVD. Status post tracheostomy. LUNGS: Coarse rhonchi. CARDIOVASCULAR: Shows regular S1 and S2 with no gallop. ABDOMEN: Status post PEG. EXTREMITIES: With no pitting edema. NEUROLOGIC: He is quadriplegic and nonverbal. LABORATORY AND DIAGNOSTIC DATA: His EKG shows sinus tachycardia with no acute ST-T wave abnormalities. Labs show white count of 12, hemoglobin 9.5, hematocrit 29, and platelet count is 380,000. Sodium is 141, potassium is 3.2, BUN of 30, creatinine of 0.4. Troponin . ASSESSMENT AND PLAN: 1. Troponin elevation. The levels are flat. The patient is nonverbal. It could be due to dehydration as the patient is azotemic. We will get an echocardiogram for ejection fraction and wall motion abnormality. This patient will be surgically safe, cardiac management is not warranted. 2. Ventilator-dependent respiratory failure, status post tracheostomy. 3. Dysphagia, status post percutaneous endoscopic gastrostomy placement. 4. Hypokalemia. Potassium will be replaced. 5. Azotemia. Thank you very much, Dr. Suarez, for allowing me to participate in the care of this patient. Please do not hesitate to contact me for any questions regarding my evaluation. Wale Severino M.D. DR: Laurent JOB#: [id number] CC:
--- NOTE | 2018-07-17 22:49 | NUR ---
NURSE NOTES: Report received from MELECIO Leigh. Observed pt lying on bed, awake, open eyes but non verbal. Pt's mom at the bedside. SR with monitoring coordinator. Trach on vent, portex 6, AC 10, TD 550, FIO2 30%, saturating at 100%. GT running Osmolite 1.5 at 50cc/hr, residual of 10cc noted. Condom catheter intact and draining well. IV site on R femoral TLC, intact and patent, running D5 1/2NS at 75cc/hr. Bed in the lowest position. Side rails up x3. Will continue to monitor.
[2018-07-18] VITALS: BP 121/72
[2018-07-18] MEDS: Vancomycin 750mg/NS 250ml IVPB SCH ×2 (01:13→09:26)
[2018-07-18] MEDS: Piperacillin/Tazobactam 3.375 GM in D5W 110 ML IVPB SCH ×3 (03:28→19:16)
[2018-07-18 04:00] VITALS: BP 122/68
[2018-07-18] MEDS: Heparin 5000 units/ml inj SUBQ SCH ×3 (06:00→20:09)
[2018-07-18] MEDS: Albuterol/Ipratropium 3ml neb HHN SCH ×3 (07:00→23:24)
--- NOTE | 2018-07-18 07:20 | NUR ---
NURSE NOTES: Received patient from MELECIO Chinchilla. Patient in bed and awake. Nonverbal. quality assurance monitor in placed. On trach to vent dependent. No SOB. Respirations are even and unlaboured. Condom catheter is in placed. Right Femoral TLC in placed and asymptomatic. Gtube feeding is currently on hold. Bed in lowest position with side rails up. Will continue to follow plan of care.
--- NOTE | 2018-07-18 07:30 | NUR ---
HAND-OFF: Report given to MELECIO Mujica. Observed pt lying on the bed. No acute distress noted at this time.
[2018-07-18 08:00] VITALS: BP 119/62
[2018-07-18 08:45] LABS: HEMATOCRIT 28.6 % (42.0-52.0); HEMOGLOBIN 9.5 G/DL (14.2-18.0); LYMPHOCYTES % (AUTO) 42.4 % (20.0-45.0); MEAN CORPUSCULAR VOLUME 87 FL (80-99); MONOCYTES % (AUTO) 8.7 % (1.0-10.0); NEUTROPHILS % (AUTO) 44.8 % (45.0-75.0); PLATELET COUNT 329 K/UL (150-450); RED BLOOD COUNT 3.28 M/UL (4.70-6.10); RED CELL DISTRIBUTION WIDTH 14.4 % (11.6-14.8); WHITE BLOOD COUNT 6.4 K/UL (4.8-10.8)
[2018-07-18] MEDS: Vitamin D 1000 IU Tab ORAL SCH (08:46)
[2018-07-18] MEDS: Magnesium Oxide 400mg tab GT SCH (08:46)
[2018-07-18] MEDS: Pyridoxine 50mg tab GT SCH (08:49)
[2018-07-18] MEDS ORDERED: Heparin 2000 units/Ns 1000ml INJ PRN (09:00)
[2018-07-18] MEDS ORDERED: Lidocaine 1% Plain 30 ml INJ PRN (09:00)
[2018-07-18 09:06] LABS: ALANINE AMINOTRANSFERASE 81 U/L (12-78); ALBUMIN 2.9 G/DL (3.4-5.0); ALBUMIN/GLOBULIN RATIO 0.7 (1.0-2.7); ALKALINE PHOSPHATASE 119 U/L (46-116); ANION GAP 7 mmol/L (5-15); ASPARTATE AMINO TRANSFERASE 32 U/L (15-37); BILIRUBIN,TOTAL 0.5 MG/DL (0.2-1.0); BLOOD UREA NITROGEN 19 mg/dL (7-18); CALCIUM 8.7 MG/DL (8.5-10.1); CARBON DIOXIDE 33 MMOL/L (21-32); CHLORIDE 102 MMOL/L (98-107); CREATININE 0.3 MG/DL (0.55-1.30); POTASSIUM 2.9 MMOL/L (3.5-5.1); SODIUM 142 MMOL/L (136-145)
[2018-07-18 09:18] LABS: PHOSPHORUS 3.4 MG/DL (2.5-4.9)
--- NOTE | 2018-07-18 10:37 | Pulmonology Progress Note ---
Assessment/Plan Problems: (1) Acute on chronic respiratory failure (2) Healthcare-associated pneumonia (3) Sepsis (4) Feeding by G-tube (5) Quadriplegia (6) Vegetative state Respiratory: monitor respiratory rate, adjust FIO2 Cardiac: continue pressors, continue to monitor HR/BP Renal: F/U I&O, keep IV fluid Infectious Disease: check cultures, continue antibiotics Gastrointestinal: continue feedings/current rate Endocrine: monitor blood sugar, check HgA1C Hematologic: monitor H/H, transfuse if hgb<8.5 Neurologic: PRN Ativan, PRN Morphine, keep patient comfortable Affect: PRN ativan Prophylaxis: Heparin Notes Reviewed: partner management consultant, renal Discussed with: nurses, consultants, pillowcase cleaner Subjective ROS Limited/Unobtainable: Yes Interval Events: getting picc line shortly Constitutional: Reports: no symptoms HEENT: Repors: no symptoms Respiratory: Reports: no symptoms Allergies: Uncoded Allergies: SEAFOOD (Allergy, Unknown, 07/16/18) Objective Last 24 Hour Vital Signs Date Time Temp Pulse Resp B/P (MAP) Pulse Ox O2 Delivery O2 Flow Rate FiO2 07/18/18 09:23 87 13 30 07/18/18 08:00 Mechanical Ventilator 07/18/18 08:00 30 07/18/18 08:00 98.1 91 15 119/62 (81) 100 07/18/18 07:37 93 07/18/18 07:11 89 13 100 Mechanical Ventilator 30 07/18/18 07:00 91 12 100 Mechanical Ventilator 30 07/18/18 06:58 94 11 30 07/18/18 05:12 95 11 30 07/18/18 04:00 87 07/18/18 04:00 97.7 89 13 122/68 (86) 100 07/18/18 04:00 Mechanical Ventilator 07/18/18 04:00 30 07/18/18 03:21 84 13 30 07/18/18 01:06 88 15 30 07/18/18 00:00 97.7 93 13 121/72 (88) 100 07/18/18 00:00 86 07/18/18 00:00 Mechanical Ventilator 07/17/18 23:08 89 12 100 Mechanical Ventilator 30 07/17/18 23:02 90 12 30 07/17/18 23:01 90 13 100 Mechanical Ventilator 30 07/17/18 20:37 87 12 30 1/6/19 20:00 83 07/17/18 20:00 98.2 82 14 103/64 (77) 100 07/17/18 20:00 Mechanical Ventilator 07/17/18 20:00 30 07/17/18 19:45 90 10 30 07/17/18 17:22 91 10 30 07/17/18 16:00 30 07/17/18 16:00 97.3 100 14 106/67 (80) 100 07/17/18 16:00 86 07/17/18 16:00 Mechanical Ventilator 07/17/18 15:30 88 13 100 Mechanical Ventilator 30 07/17/18 15:21 83 13 100 Mechanical Ventilator 30 07/17/18 15:17 81 10 30 07/17/18 13:48 104 13 30 07/17/18 12:00 97.7 100 14 111/68 (82) 100 07/17/18 12:00 30 07/17/18 12:00 Mechanical Ventilator 07/17/18 12:00 99 07/17/18 10:54 104 13 100 Mechanical Ventilator 30 07/17/18 10:46 103 13 100 Mechanical Ventilator 30 07/17/18 10:45 103 13 30 Intake and Output 07/17/18 07/18/18 19:00 07:00 Intake Total 1256.667 ml 1690 ml Output Total 400 ml 1350 ml Balance 856.667 ml 340 ml Intake Free Water 40 ml 100 ml IV Total 1026.667 ml 1260 ml Tube Feeding 190 ml 330 ml Output Urine Total 400 ml 1350 ml # Bowel Movements 2 General Appearance: WD/WN HEENT: normocephalic, atraumatic Respiratory/Chest: chest wall non-tender, lungs clear Cardiovascular: normal peripheral pulses, normal rate Abdomen: normal bowel sounds, soft, non tender Genitourinary: normal external genitalia Extremities: no cyanosis Skin: no lesions Neurologic/Psychiatric: hydraulic billet maker II-XII grossly normal Lymphatic: no neck adenopathy Microbiology Date/Time Source Procedure Growth Status 07/16/18 20:00 Blood Blood Culture - Preliminary NO GROWTH AFTER 24 HOURS Resulted 07/16/18 19:45 Blood Blood Culture - Preliminary NO GROWTH AFTER 24 HOURS Resulted 07/16/18 21:05 Nasal Nares Influenza Types A,B Antigen (ELADIO) - Final Complete 07/16/18 20:15 Urine,Clean Catch Urine Culture - Preliminary Mixed Urogenital Contaminants Resulted 07/16/18 20:15 Rectum Received Laboratory Tests 07/18/18 08:00: White Blood Count 6.4, Red Blood Count 3.28L, Hemoglobin 9.5L, Hematocrit 28.6L , Mean Corpuscular Volume 87, Mean Corpuscular Hemoglobin 28.9, Mean Corpuscular Hemoglobin Concent 33.2, Red Cell Distribution Width 14.4, Platelet Count 329, Mean Platelet Volume 5.4L, Neutrophils (%) (Auto) 44.8L, Lymphocytes (%) (Auto) 42.4, Monocytes (%) (Auto) 8.7, Eosinophils (%) (Auto) 3.0, Basophils (%) (Auto) 1.0, Sodium Level 142, Potassium Level 2.9L, Chloride Level 102, Carbon Dioxide Level 33H, Anion Gap 7, Blood Urea Nitrogen 19H, Creatinine 0.3L, Estimat Glomerular Filtration Rate > 60, Glucose Level 122H, Calcium Level 8.7, Phosphorus Level 3.4, Magnesium Level 2.1, Total Bilirubin 0.5, Aspartate Amino Transf (AST/SGOT) 32, Alanine Aminotransferase (ALT/SGPT) 81H, Alkaline Phosphatase 119H, Troponin I 0.262H, Total Protein 6.9, Albumin 2.9L, Globulin 4.0, Albumin/Globulin Ratio 0.7L, Vancomycin Level Trough 23.3H Current Medications Medications (Trade) Dose Ordered Sig/Becca Route PRN Reason Start Time Stop Time Status Last Admin Dose Admin Acetaminophen (Tylenol) 650 mg Q6H PRN GT Mild Pain/Temp > 100.5 07/17/18 08:45 08/16/18 08:44 Albuterol/ Ipratropium (Albuterol/ Ipratropium) 3 ml Q4H PRN HHN Shortness of Breath 07/17/18 08:15 07/22/18 08:14 Albuterol/ Ipratropium (Albuterol/ Ipratropium) 3 ml Q8HRT HHN 07/17/18 09:00 07/22/18 08:59 07/18/18 07:00 Atorvastatin Calcium (Lipitor) 40 mg BEDTIME GT 07/17/18 21:00 08/16/18 20:59 07/17/18 21:48 Bisacodyl (Dulcolax) 10 mg DAILYPRN PRN RECTAL Constipation 07/17/18 08:15 08/16/18 08:14 Chlorhexidine Gluconate (Lawanda-Hex 2%) 1 applic DAILY@2000 TOPIC 07/17/18 20:00 08/16/18 19:59 07/17/18 20:23 Dextrose/Sodium Chloride 1,000 ml @ 75 mls/hr [id number] IV 07/17/18 08:00 08/16/18 07:59 07/17/18 21:49 Docusate Sodium (Colace) 200 mg TWICE A DAY PRN NG Constipation 07/17/18 10:45 08/16/18 10:44 Guaifenesin (Robitussin) 100 mg Q24H PRN GT For Cough 07/17/18 08:15 08/16/18 08:14 Heparin Sodium (Porcine) (Heparin 5000 units/ml) 5,000 units EVERY 8 HOURS SUBQ 07/17/18 14:00 08/16/18 13:59 07/17/18 13:27 Heparin Sodium/ Sodium Chloride (Heparin 2000 units/Ns 1000ml premix) 2,000 unit ONCE PRN INJ PICC LINE 07/17/18 15:15 07/19/18 23:59 Heparin Sodium/ Sodium Chloride (Heparin 2000 units/Ns 1000ml premix) 2,000 unit ONCE PRN INJ PICC LINE 07/18/18 09:00 07/18/18 23:59 Lansoprazole (Prevacid) 30 mg DAILY GT 07/17/18 09:00 08/16/18 08:59 07/18/18 08:45 Lidocaine HCl (Xylocaine 1% 30ml) 30 ml ONCE PRN INJ PICC LINE 07/17/18 15:15 07/19/18 23:59 Lidocaine HCl (Xylocaine 1% 30ml) 30 ml ONCE PRN INJ PICC LINE 07/18/18 09:00 07/18/18 23:59 Magnesium Oxide (Mag-Ox 400mg) 400 mg DAILY GT 07/17/18 09:00 08/16/18 08:59 07/18/18 08:46 Midodrine (Pro-Amatine) 5 mg THREE TIMES A DAY GT 07/17/18 09:00 08/16/18 08:59 07/18/18 08:46 Piperacillin Sod/ Tazobactam Sod 3.375 gm/Dextrose 110 ml @ 27.5 mls/hr Q8H IVPB 07/17/18 11:00 07/24/18 10:59 07/18/18 03:28 Potassium Chloride (K-Dur) 40 meq Q4H GT 07/18/18 10:30 07/18/18 14:31 Pyridoxine HCl (Vitamin B6) 100 mg DAILY GT 07/17/18 09:00 08/16/18 08:59 07/18/18 08:49 Sennosides (Senokot) 17.2 mg DAILY PRN GT Constipation 07/17/18 08:15 08/16/18 08:14 Vancomycin HCl (Vanco rx to dose) 1 ea DAILY MISC 07/17/18 09:00 08/16/18 08:59 Vancomycin HCl 1 gm/Dextrose 275 ml @ 183.708 mls/hr Q12H IVPB 07/18/18 13:00 07/23/18 12:59 Vitamin D (Vitamin D) 1,000 intlu DAILY ORAL 07/18/18 09:00 08/17/18 08:59 07/18/18 08:46 Milena Ross MD Jul 18, 2018 10:37
[2018-07-18] MEDS: D5 1/2NS 1,000 ML IV SCH (10:54)
--- NOTE | 2018-07-18 11:05 | NUR ---
RD ASSESSMENT & RECOMMENDATIONS SEE CARE ACTIVITY FOR COMPLETE ASSESSMENT DAILY ESTIMATED NEEDS: Needs based on Critical care, paraplegia, TF PAPER INSERTER 72.7kg 20-25 kcals/kg 0724-4465- total kcals 1.2-1.5 g protein/kg 87-109 g total protein 20-30 mL/kg 0894-0346 total fluid mLs NUTRITION DIAGNOSIS: Swallowing difficulty r/t respiratory status as evidenced by pt w/ h/o spinal cord injury, paraplegia, trach dep and PEG dep. CURRENT TF: Glucerna 1.5 @50ml/hr x20 hrs ENTERAL NUTRITION RECOMMENDATIONS: Osmolite 1.5 @50ml/hr x22 hrs + Prosource BID to provide 1100ml, 1650 kcal, 69g + 22g prot, 838ml free H2O - Rec to INCREASE TF RUN TIME TO 22 HRS/DAY - Add PROSOURCE 1 pack BID to better meet est prot needs - Flush per MD/ HOB over 30 degrees ADDITIONAL RECOMMENDATIONS: 1) Obtain weekly Calibrated bed scale wts 2) Check lytes daily/ replete as needed (Low K- 2.9) 3) Add PROSOURCE BID via peg
[2018-07-18 12:00] VITALS: BP 123/73
--- NOTE | 2018-07-18 12:05 | Diagnostic Imaging Report ---
Indications: Needs long-term IV access Technique: Procedure performed at bedside. Procedural timeout performed. Ultrasound confirms patent compressible left basilic vein. Total sterile technique, including sterile probe cover and sterile gel, sterile gloves, hand hygiene, hat, mask,, sterile gown, large sterile drape, and preparation with 2% chlorhexidine utilized. Local anesthesia with 1% lidocaine. Under real-time ultrasound guidance, puncture basilic vein using 21-gauge needle, passage 0.018 guidewire, exchange for 5 Greek peel-away sheath. 5 Greek Bard dual-lumen power PICC cut to 47 cm. It was inserted through the peel-away sheath. Peel-away sheath and guidewire removed. Catheter fixed to the skin. Both catheter ports aspirated and flushed. Patient tolerated procedure well, without immediate complication. Followup chest x-ray obtained, documents catheter tip position at the cavoatrial junction Impression: Successful bedside placement of left arm PICC under sonographic guidance, as described above.
[2018-07-18] MEDS: Vancomycin 1gm in D5W 275ml IVPB SCH (13:03)
[2018-07-18 16:00] VITALS: BP 130/76
--- NOTE | 2018-07-18 16:10 | Cardiac Electrophysiology PN ---
Assessment/Plan Assessment/Plan 1. Troponin elevation. The levels are flat. The patient is nonverbal. It could be due to dehydration. Echo pending 2. Ventilator-dependent respiratory failure, status post tracheostomy. 3. Dysphagia, status post percutaneous endoscopic gastrostomy placement. 4. Hypokalemia. 5. Azotemia. Subjective Subjective No new events. Mother at bedside. On the vent non verbal. Objective Last 24 Hour Vital Signs Date Time Temp Pulse Resp B/P (MAP) Pulse Ox O2 Delivery O2 Flow Rate FiO2 07/18/18 15:33 84 12 100 Mechanical Ventilator 30 07/18/18 15:23 84 11 30 07/18/18 15:22 83 11 99 Mechanical Ventilator 30 07/18/18 13:29 87 12 30 07/18/18 12:00 Mechanical Ventilator 07/18/18 12:00 30 07/18/18 12:00 97.9 96 15 123/73 (90) 99 07/18/18 11:34 95 07/18/18 11:19 91 14 30 07/18/18 09:23 87 13 30 07/18/18 08:00 Mechanical Ventilator 07/18/18 08:00 30 07/18/18 08:00 98.1 91 15 119/62 (81) 100 07/18/18 07:37 93 07/18/18 07:11 89 13 100 Mechanical Ventilator 30 07/18/18 07:00 91 12 100 Mechanical Ventilator 30 07/18/18 06:58 94 11 30 07/18/18 05:12 95 11 30 07/18/18 04:00 87 07/18/18 04:00 97.7 89 13 122/68 (86) 100 07/18/18 04:00 Mechanical Ventilator 07/18/18 04:00 30 07/18/18 03:21 84 13 30 07/18/18 01:06 88 15 30 07/18/18 00:00 97.7 93 13 121/72 (88) 100 07/18/18 00:00 86 07/18/18 00:00 Mechanical Ventilator 07/17/18 23:08 89 12 100 Mechanical Ventilator 30 07/17/18 23:02 90 12 30 07/17/18 23:01 90 13 100 Mechanical Ventilator 30 07/17/18 20:37 87 12 30 07/17/18 20:00 83 07/17/18 20:00 98.2 82 14 103/64 (77) 100 07/17/18 20:00 Mechanical Ventilator 07/17/18 20:00 30 07/17/18 19:45 90 10 30 07/17/18 17:22 91 10 30 Intake and Output 07/17/18 07/18/18 19:00 07:00 Intake Total 1256.667 ml 1690 ml Output Total 400 ml 1350 ml Balance 856.667 ml 340 ml Intake Free Water 40 ml 100 ml IV Total 1026.667 ml 1260 ml Tube Feeding 190 ml 330 ml Output Urine Total 400 ml 1350 ml # Bowel Movements 2 Laboratory Tests Test 07/18/18 08:00 White Blood Count 6.4 K/UL (4.8-10.8) Red Blood Count 3.28 M/UL (4.70-6.10) L Hemoglobin 9.5 G/DL (14.2-18.0) L Hematocrit 28.6 % (42.0-52.0) L Mean Corpuscular Volume 87 FL (80-99) Mean Corpuscular Hemoglobin 28.9 PG (27.0-31.0) Mean Corpuscular Hemoglobin Concent 33.2 G/DL (32.0-36.0) Red Cell Distribution Width 14.4 % (11.6-14.8) Platelet Count 329 K/UL (150-450) Mean Platelet Volume 5.4 FL (6.5-10.1) L Neutrophils (%) (Auto) 44.8 % (45.0-75.0) L Lymphocytes (%) (Auto) 42.4 % (20.0-45.0) Monocytes (%) (Auto) 8.7 % (1.0-10.0) Eosinophils (%) (Auto) 3.0 % (0.0-3.0) Basophils (%) (Auto) 1.0 % (0.0-2.0) Sodium Level 142 MMOL/L (136-145) Potassium Level 2.9 MMOL/L (3.5-5.1) L Chloride Level 102 MMOL/L (98-107) Carbon Dioxide Level 33 MMOL/L (21-32) H Anion Gap 7 mmol/L (5-15) Blood Urea Nitrogen 19 mg/dL (7-18) H Creatinine 0.3 MG/DL (0.55-1.30) L Estimat Glomerular Filtration Rate > 60 mL/min (>60) Glucose Level 122 MG/DL (74-106) H Calcium Level 8.7 MG/DL (8.5-10.1) Phosphorus Level 3.4 MG/DL (2.5-4.9) Magnesium Level 2.1 MG/DL (1.8-2.4) Total Bilirubin 0.5 MG/DL (0.2-1.0) Aspartate Amino Transf (AST/SGOT) 32 U/L (15-37) Alanine Aminotransferase (ALT/SGPT) 81 U/L (12-78) H Alkaline Phosphatase 119 U/L (46-116) H Troponin I 0.262 ng/mL (0.000-0.056) Total Protein 6.9 G/DL (6.4-8.2) Albumin 2.9 G/DL (3.4-5.0) L Globulin 4.0 g/dL Albumin/Globulin Ratio 0.7 (1.0-2.7) L Vancomycin Level Trough 23.3 ug/mL (5.0-12.0) H Microbiology Date/Time Source Procedure Growth Status 07/16/18 20:00 Blood Blood Culture - Preliminary NO GROWTH AFTER 24 HOURS Resulted 07/16/18 19:45 Blood Blood Culture - Preliminary NO GROWTH AFTER 24 HOURS Resulted 07/16/18 21:05 Nasal Nares Influenza Types A,B Antigen (ELADIO) - Final Complete 07/16/18 20:15 Urine,Clean Catch Urine Culture - Preliminary Mixed Urogenital Contaminants Resulted 07/16/18 20:15 Rectum Received Objective HEAD AND NECK: No JVD. Status post tracheostomy. LUNGS: Coarse rhonchi. CARDIOVASCULAR: Regular S1 and S2 with no gallop. ABDOMEN: Status post PEG. EXTREMITIES: With no pitting edema. NEUROLOGIC: He is quadriplegic and nonverbal. Wale Severino MD Jul 18, 2018 16:10
--- NOTE | 2018-07-18 18:01 | Internal Med Progress Note ---
Subjective Date of Service: Jul 18, 2018 Physician Name Zeyad Simmons Attending Physician Wilner Suarez MD Current Medications Medications (Trade) Dose Ordered Sig/Becca Route PRN Reason Start Time Stop Time Status Last Admin Dose Admin Acetaminophen (Tylenol) 650 mg Q6H PRN GT Mild Pain/Temp > 100.5 07/17/18 08:45 08/16/18 08:44 Albuterol/ Ipratropium (Albuterol/ Ipratropium) 3 ml Q4H PRN HHN Shortness of Breath 07/17/18 08:15 07/22/18 08:14 Albuterol/ Ipratropium (Albuterol/ Ipratropium) 3 ml Q8HRT HHN 07/17/18 09:00 07/22/18 08:59 07/18/18 15:22 Atorvastatin Calcium (Lipitor) 40 mg BEDTIME GT 07/17/18 21:00 08/16/18 20:59 07/17/18 21:48 Bisacodyl (Dulcolax) 10 mg DAILYPRN PRN RECTAL Constipation 07/17/18 08:15 08/16/18 08:14 Chlorhexidine Gluconate (Lawanda-Hex 2%) 1 applic DAILY@2000 TOPIC 07/17/18 20:00 08/16/18 19:59 07/17/18 20:23 Dextrose/Sodium Chloride 1,000 ml @ 75 mls/hr [id number] IV 07/17/18 08:00 08/16/18 07:59 07/18/18 10:54 Docusate Sodium (Colace) 200 mg TWICE A DAY PRN NG Constipation 07/17/18 10:45 08/16/18 10:44 Guaifenesin (Robitussin) 100 mg Q24H PRN GT For Cough 07/17/18 08:15 08/16/18 08:14 Heparin Sodium (Porcine) (Heparin 5000 units/ml) 5,000 units EVERY 8 HOURS SUBQ 07/17/18 14:00 08/16/18 13:59 07/18/18 13:04 Heparin Sodium/ Sodium Chloride (Heparin 2000 units/Ns 1000ml premix) 2,000 unit ONCE PRN INJ PICC LINE 07/17/18 15:15 07/19/18 23:59 Heparin Sodium/ Sodium Chloride (Heparin 2000 units/Ns 1000ml premix) 2,000 unit ONCE PRN INJ PICC LINE 07/18/18 09:00 07/18/18 23:59 Lansoprazole (Prevacid) 30 mg DAILY GT 07/17/18 09:00 08/16/18 08:59 07/18/18 08:45 Lidocaine HCl (Xylocaine 1% 30ml) 30 ml ONCE PRN INJ PICC LINE 07/17/18 15:15 07/19/18 23:59 Lidocaine HCl (Xylocaine 1% 30ml) 30 ml ONCE PRN INJ PICC LINE 07/18/18 09:00 07/18/18 23:59 Magnesium Oxide (Mag-Ox 400mg) 400 mg DAILY GT 07/17/18 09:00 08/16/18 08:59 07/18/18 08:46 Midodrine (Pro-Amatine) 5 mg THREE TIMES A DAY GT 07/17/18 09:00 08/16/18 08:59 07/18/18 13:02 Piperacillin Sod/ Tazobactam Sod 3.375 gm/Dextrose 110 ml @ 27.5 mls/hr Q8H IVPB 07/17/18 11:00 07/24/18 10:59 07/18/18 10:54 Pyridoxine HCl (Vitamin B6) 100 mg DAILY GT 07/17/18 09:00 08/16/18 08:59 07/18/18 08:49 Sennosides (Senokot) 17.2 mg DAILY PRN GT Constipation 07/17/18 08:15 08/16/18 08:14 Vancomycin HCl (Vanco rx to dose) 1 ea DAILY MISC 07/17/18 09:00 08/16/18 08:59 Vancomycin HCl 1 gm/Dextrose 275 ml @ 183.708 mls/hr Q12H IVPB 07/18/18 13:00 07/23/18 12:59 07/18/18 13:03 Vitamin D (Vitamin D) 1,000 intlu DAILY ORAL 07/18/18 09:00 08/17/18 08:59 07/18/18 08:46 Allergies: Uncoded Allergies: SEAFOOD (Allergy, Unknown, 07/16/18) ROS Limited/Unobtainable: Yes Subjective 52 YO M paraplegic with chronic vent dep admitted with Shortness of breath. Now LLL pneumonia and elevated troponin. Cover for Int Casper-dr Suarez Objective Last Vital Signs Date Time Temp Pulse Resp B/P (MAP) Pulse Ox O2 Delivery O2 Flow Rate FiO2 07/18/18 16:00 30 07/18/18 16:00 Mechanical Ventilator 07/18/18 16:00 97.9 106 15 130/76 (94) 99 Laboratory Tests Test 07/18/18 08:00 White Blood Count 6.4 K/UL (4.8-10.8) Red Blood Count 3.28 M/UL (4.70-6.10) L Hemoglobin 9.5 G/DL (14.2-18.0) L Hematocrit 28.6 % (42.0-52.0) L Mean Corpuscular Volume 87 FL (80-99) Mean Corpuscular Hemoglobin 28.9 PG (27.0-31.0) Mean Corpuscular Hemoglobin Concent 33.2 G/DL (32.0-36.0) Red Cell Distribution Width 14.4 % (11.6-14.8) Platelet Count 329 K/UL (150-450) Mean Platelet Volume 5.4 FL (6.5-10.1) L Neutrophils (%) (Auto) 44.8 % (45.0-75.0) L Lymphocytes (%) (Auto) 42.4 % (20.0-45.0) Monocytes (%) (Auto) 8.7 % (1.0-10.0) Eosinophils (%) (Auto) 3.0 % (0.0-3.0) Basophils (%) (Auto) 1.0 % (0.0-2.0) Sodium Level 142 MMOL/L (136-145) Potassium Level 2.9 MMOL/L (3.5-5.1) L Chloride Level 102 MMOL/L (98-107) Carbon Dioxide Level 33 MMOL/L (21-32) H Anion Gap 7 mmol/L (5-15) Blood Urea Nitrogen 19 mg/dL (7-18) H Creatinine 0.3 MG/DL (0.55-1.30) L Estimat Glomerular Filtration Rate > 60 mL/min (>60) Glucose Level 122 MG/DL (74-106) H Calcium Level 8.7 MG/DL (8.5-10.1) Phosphorus Level 3.4 MG/DL (2.5-4.9) Magnesium Level 2.1 MG/DL (1.8-2.4) Total Bilirubin 0.5 MG/DL (0.2-1.0) Aspartate Amino Transf (AST/SGOT) 32 U/L (15-37) Alanine Aminotransferase (ALT/SGPT) 81 U/L (12-78) H Alkaline Phosphatase 119 U/L (46-116) H Troponin I 0.262 ng/mL (0.000-0.056) Total Protein 6.9 G/DL (6.4-8.2) Albumin 2.9 G/DL (3.4-5.0) L Globulin 4.0 g/dL Albumin/Globulin Ratio 0.7 (1.0-2.7) L Vancomycin Level Trough 23.3 ug/mL (5.0-12.0) H Microbiology Date/Time Source Procedure Growth Status 07/16/18 20:00 Blood Blood Culture - Preliminary NO GROWTH AFTER 24 HOURS Resulted 07/16/18 19:45 Blood Blood Culture - Preliminary NO GROWTH AFTER 24 HOURS Resulted 07/16/18 21:05 Nasal Nares Influenza Types A,B Antigen (ELADIO) - Final Complete 07/16/18 20:15 Urine,Clean Catch Urine Culture - Preliminary Mixed Urogenital Contaminants Resulted 07/16/18 20:15 Rectum Received Intake and Output 07/17/18 07/18/18 19:00 07:00 Intake Total 1256.667 ml 1690 ml Output Total 400 ml 1350 ml Balance 856.667 ml 340 ml Intake Free Water 40 ml 100 ml IV Total 1026.667 ml 1260 ml Tube Feeding 190 ml 330 ml Output Urine Total 400 ml 1350 ml # Bowel Movements 2 Objective ITAL SIGNS: Temperature 97.0 degrees, respirations 12, pulse tachycardic at 147 and blood pressure 174/97. GENERAL: The patient is well-developed, well-nourished male, who is intubated. HEENT: Eyes, pupils equal and responsive to light and accommodation. Extraocular movements are intact. NECK: Tracheosotmy; Supple without lymphadenopathy. CHEST: Mech vent; Decreased breath sounds, left lower lobe. Otherwise, without wheezes or rales. CARDIOVASCULAR: Tachycardic, regular rhythm. S1 and S2 are normal without murmurs, rubs, gallops. ABDOMEN: Soft, nontender, and nondistended. Positive bowel sounds. No evidence of hepatosplenomegaly. Currently, no rebound or guarding noted. NEUROLOGICAL: The patient is paraplegic. Cranial nerves II through XII are grossly intact without focal deficits. Assessment/Plan Problem List: (1) Hypertension (2) Dysphagia Assessment & Plan: On G-tube feeds (3) Healthcare-associated pneumonia Assessment & Plan: Continue zosyn and vanco per pulmonary (4) Acute on chronic respiratory failure Assessment & Plan: Chronic vent dep-see pulmonary note. (5) Elevated troponin Assessment & Plan: see cardiology note. (6) Quadriplegia (7) Feeding by G-tube (8) NSTEMI (non-ST elevated myocardial infarction) (9) Vegetative state Status: not improved Zeyad Simmons MD Jul 18, 2018 18:01
--- NOTE | 2018-07-18 18:07 | NUR ---
CASE MANAGEMENT: REVIEW SI: SEPSIS T 97.9 HR 106 RR 11 BP 130/76 SAT 99% MECH VENT FIO2 30 H/H 9.5/28.6 K 2.9 IS: VANCO IV Q12HR MAG OX 400MG PO QD D5 1/2 NS IVF @ 75ML/HR STEP DOWN UNIT STATUS DCP: PATIENT IS FROM [facility]
--- NOTE | 2018-07-18 19:15 | NUR ---
HAND-OFF: Report given to MELECIO Kiser. Patient stable.
--- NOTE | 2018-07-18 19:16 | NUR ---
NURSE NOTES: Received patient from MELECIO Mujica. Patient is in bed, alert and oriented x2, eyes tracing. On trach Portex 8 to vent with settings of AC:10, TV:550, FiO2:30%, PEEP:5 and saturating at 98& and showing no pain and distress. GTube feeding of Osmolite 1.5 @ 50ml/hr. Will continue plan of care.
--- NOTE | 2018-07-18 19:41 | NUR ---
RESPIRATORY NOTE: Pt was received stable with vent settings AC 10, 550 VT, 30%, PEEP +5. Pt is trached on a portex 6. Breath sounds are diminished. Small, thin, and clear secretions. Alarms are on and audible. Vent is plugged into red outlet. No respiratory distress noted. Will continue monitor closely.
[2018-07-18 20:00] VITALS: BP 129/80
[2018-07-18] MEDS: Atorvastatin 20mg tab GT SCH (20:09)
[2018-07-18] MEDS: Dyna-Hex 2% Top Sol 2oz TOPIC SCH (20:09)
[2018-07-19] VITALS: BP 107/72
[2018-07-19] MEDS: D5 1/2NS 1,000 ML IV SCH ×2 (01:29→13:09)
[2018-07-19] MEDS: Vancomycin 1gm in D5W 275ml IVPB SCH ×2 (01:33→13:09)
[2018-07-19] MEDS: Piperacillin/Tazobactam 3.375 GM in D5W 110 ML IVPB SCH ×3 (03:38→18:03)
[2018-07-19 04:00] VITALS: BP 125/76
[2018-07-19 04:30] LABS: BASOPHILS % (AUTO) 0.8 % (0.0-2.0); EOSINOPHILS % (AUTO) 5.3 % (0.0-3.0); HEMATOCRIT 35.8 % (42.0-52.0); HEMOGLOBIN 11.8 G/DL (14.2-18.0); LYMPHOCYTES % (AUTO) 34.7 % (20.0-45.0); MEAN CORPUSCULAR VOLUME 88 FL (80-99); MONOCYTES % (AUTO) 5.3 % (1.0-10.0); NEUTROPHILS % (AUTO) 53.8 % (45.0-75.0); PLATELET COUNT 347 K/UL (150-450); RED BLOOD COUNT 4.05 M/UL (4.70-6.10); RED CELL DISTRIBUTION WIDTH 14.8 % (11.6-14.8); WHITE BLOOD COUNT 8.3 K/UL (4.8-10.8)
[2018-07-19 04:53] LABS: ALANINE AMINOTRANSFERASE 91 U/L (12-78); ALBUMIN 3.6 G/DL (3.4-5.0); ALBUMIN/GLOBULIN RATIO 0.8 (1.0-2.7); ALKALINE PHOSPHATASE 139 U/L (46-116); ANION GAP 8 mmol/L (5-15); ASPARTATE AMINO TRANSFERASE 36 U/L (15-37); BILIRUBIN,TOTAL 0.5 MG/DL (0.2-1.0); BLOOD UREA NITROGEN 11 mg/dL (7-18); CALCIUM 9.7 MG/DL (8.5-10.1); CARBON DIOXIDE 31 MMOL/L (21-32); CHLORIDE 102 MMOL/L (98-107); CREATININE 0.4 MG/DL (0.55-1.30); POTASSIUM 3.8 MMOL/L (3.5-5.1); SODIUM 141 MMOL/L (136-145)
[2018-07-19] MEDS: Heparin 5000 units/ml inj SUBQ SCH ×3 (06:02→21:32)
[2018-07-19] MEDS: Albuterol/Ipratropium 3ml neb HHN SCH ×3 (06:50→22:48)
--- NOTE | 2018-07-19 07:02 | NUR ---
NURSE NOTES: Received patient from MELECIO Kiser. Patient in bed and awake, able to trace. On trach with vent settings of Portex 6 AC 10 TV 550 Fi02 30% Peep 5. No SOB. Respirations are even and unlaboured. radiation monitor in placed. Gtube feeding with Osmolite 1.5 at 40cc/hour. Condom catheter in placed. Left Upper Arm PICC asymptomatic. Bed in lowest position with side rails up. Will continue to follow plan of care.
--- NOTE | 2018-07-19 07:03 | NUR ---
HAND-OFF: Report given to MELECIO Mujica.
[2018-07-19 08:00] VITALS: BP 123/80
[2018-07-19] MEDS: Vitamin D 1000 IU Tab ORAL SCH (08:24)
[2018-07-19] MEDS: Pyridoxine 50mg tab GT SCH (08:24)
[2018-07-19] MEDS: Magnesium Oxide 400mg tab GT SCH (08:24)
--- NOTE | 2018-07-19 08:47 | Cardiology Report ---
APPROVED REPORT EXAM: Two-dimensional and M-mode echocardiogram with Doppler and color Doppler. INDICATION TACHYCARDIA M-Mode DIMENSIONS IVSd1.1 (0.7-1.1cm)Left Atrium (MM)1.7 (1.6-4.0cm) LVDd3.8 (3.5-5.6cm)Aortic Root2.7 (2.0-3.7cm) PWd0.9 (0.7-1.1cm)Aortic Cusp Exc.1.6 (1.5-2.0cm) IVSs1.3 cm LVDs2.4 (2.5-4.0cm) PWs1.1 cm Normal left ventricular chamber size, systolic function and wall motion . Left ventricular ejection fraction estimated to be 55-60 %. Mild left ventricular hypertrophy by 2-D. Trivial pericardial effusion. All other cardiac chamber sizes are within normal limits. Mildly focal aortic valve sclerosis with reduced cusp excursion. Thickened mitral valve leaflets with normal excursion. Mitral annulus and aortic root calcification. Normal pulmonic valve structure. Normal tricuspid valve structure. IVC at size 1.7cm without phsyological collapse suggestive of increased RA pressure. A color flow and spectral Doppler study was performed and revealed: No aortic regurgitation. Trace mitral regurgitation. Mitral diastolic velocities suggest reduced left ventricular relaxation c/w mild LV diastolic dysfunction (Grade I ). Trace tricuspid regurgitation. Tricuspid systolic velocities suggests peak right ventricular systolic pressure of 15 mmHg. No Pulmonic regurgitation present.
--- NOTE | 2018-07-19 09:29 | NUR ---
RADIOLOGY DEPT CHEST X-RAY DONE.-P.DYE
--- NOTE | 2018-07-19 09:45 | Consultation ---
History of Present Illness General Date patient seen: Jul 19, 2018 Chief Complaint: General Complaint Reason for Consultation: Sepsis Present Illness HPI Mr. Nichole is a 52 yo male with PMHx of Vent dependence, Dysphagia s/p PEG, Parapelgia, and HTN who was sent to the ED on 07[facility] for fever and increased respiratory distress. The patent is not verbals o Hx obtained from the chart. In the ED he was afebrile but had WBC of 11 (now 8). His UA was positive and his CXR showed LLL collapse. Inf screen (-). ID consulted for PNA PMHx/PSHx Vent dependent sp trach Dysphagia s/p PEG Parapelgia HTN Lumbar laminectomy. SocHx No E/T/D FamHx Unable to obtain due to trach and vent Allergies: Uncoded Allergies: SEAFOOD (Allergy, Unknown, 07/16/18) Medication History Scheduled Acetaminophen 160MG/5ML* (Acetaminophen*), 5 ML ORAL EVERY 6 HOURS, (Reported) Amlodipine Besylate (Norvasc), 2.5 MG ORAL DAILY, (Reported) Atorvastatin (Lipitor), 40 MG ORAL BEDTIME, (Reported) Bisacodyl (Bisacodyl), 10 MG RC DAILY, (Reported) Carboxymethylcellulose Sodium (Lubricant Eye Drops), 1 EACH OP BID, (Reported) Guaifenesin* (Guaifenesin), 5 ML ORAL Q4H, (Reported) Lansoprazole* (Lansoprazole*), 30 MG ORAL DAILY, (Reported) Midodrine (Midodrine HCl), 2.5 MG ORAL THREE TIMES A DAY, (Reported) Scheduled PRN Ipratropium [place] 0.5MG/2.5ML (Ipratropium [place] 0.5MG/2.5ML), 0.5 MG HHN Q6H PRN for Shortness of Breath, (Reported) Miscellaneous Medications Chlorhexidine Gluconate (Chlorhexidine Gluconate), 1 EACH TP, (Reported) Docusate Sodium (Docusate Sodium), 100 MG ORAL, (Reported) Magnesium Oxide (Mag-Oxide), 400 MG PO, (Reported) Midodrine (Midodrine HCl), 5 MG GT, (Reported) Mineral Oil (Mineral Oil), 30 ML GT, (Reported) Psyllium (Metamucil Powder), 1 PKT GT, (Reported) Pyridoxine HCl (Pyridoxine HCl), GM MC, (Reported) Sennosides/Docusate Sodium (Senna-S Tablet), 1 EACH PO, (Reported) Patient History Healthcare decision maker see above Resuscitation status Full Code Advanced Directive on File Review of Systems ROS Narrative Unable to obtain due to trach and vent Physical Exam Last 24 Hour Vital Signs Date Time Temp Pulse Resp B/P (MAP) Pulse Ox O2 Delivery O2 Flow Rate FiO2 07/19/18 08:57 96 14 30 07/19/18 08:00 Mechanical Ventilator 07/19/18 08:00 30 07/19/18 08:00 98.6 98 20 123/80 (94) 100 07/19/18 07:24 104 12 100 Mechanical Ventilator 30 07/19/18 06:52 102 13 30 07/19/18 06:50 101 11 100 Mechanical Ventilator 30 07/19/18 05:13 98 11 30 07/19/18 04:00 99.0 99 11 125/76 (92) 100 07/19/18 04:00 30 07/19/18 04:00 Mechanical Ventilator 07/19/18 03:36 96 07/19/18 03:25 95 11 30 07/19/18 01:57 87 18 30 07/19/18 00:00 91 07/19/18 00:00 Mechanical Ventilator 07/19/18 00:00 98.1 90 15 107/72 (84) 100 07/18/18 23:34 96 12 100 Mechanical Ventilator 30 07/18/18 23:24 92 12 99 Mechanical Ventilator 30 07/18/18 22:17 98 18 30 07/18/18 20:00 30 07/18/18 20:00 98.2 100 11 129/80 (96) 100 07/18/18 20:00 Mechanical Ventilator 07/18/18 20:00 99 07/18/18 19:41 99 12 30 07/18/18 18:03 104 12 30 07/18/18 18:00 Mechanical Ventilator 07/18/18 16:00 30 07/18/18 16:00 Mechanical Ventilator 07/18/18 16:00 97.9 106 15 130/76 (94) 99 07/18/18 15:37 86 07/18/18 15:33 84 12 100 Mechanical Ventilator 30 07/18/18 15:23 84 11 30 07/18/18 15:22 83 11 99 Mechanical Ventilator 30 07/18/18 13:29 87 12 30 07/18/18 12:00 Mechanical Ventilator 07/18/18 12:00 30 07/18/18 12:00 97.9 96 15 123/73 (90) 99 07/18/18 11:34 95 07/18/18 11:19 91 14 30 Intake and Output 07/18/18 07/19/18 18:59 06:59 Intake Total 782.750 ml 1257.620 ml Output Total 1250 ml 1300 ml Balance -467.250 ml -42.380 ml Intake Free Water 100 ml 100 ml IV Total 352.750 ml 677.620 ml Tube Feeding 330 ml 480 ml Output Urine Total 1250 ml 1300 ml # Bowel Movements 2 2 Laboratory Tests Test 07/19/18 04:03 White Blood Count 8.3 K/UL (4.8-10.8) Red Blood Count 4.05 M/UL (4.70-6.10) L Hemoglobin 11.8 G/DL (14.2-18.0) L Hematocrit 35.8 % (42.0-52.0) L Mean Corpuscular Volume 88 FL (80-99) Mean Corpuscular Hemoglobin 29.2 PG (27.0-31.0) Mean Corpuscular Hemoglobin Concent 33.0 G/DL (32.0-36.0) Red Cell Distribution Width 14.8 % (11.6-14.8) Platelet Count 347 K/UL (150-450) Mean Platelet Volume 5.4 FL (6.5-10.1) L Neutrophils (%) (Auto) 53.8 % (45.0-75.0) Lymphocytes (%) (Auto) 34.7 % (20.0-45.0) Monocytes (%) (Auto) 5.3 % (1.0-10.0) Eosinophils (%) (Auto) 5.3 % (0.0-3.0) H Basophils (%) (Auto) 0.8 % (0.0-2.0) Sodium Level 141 MMOL/L (136-145) Potassium Level 3.8 MMOL/L (3.5-5.1) Chloride Level 102 MMOL/L (98-107) Carbon Dioxide Level 31 MMOL/L (21-32) Anion Gap 8 mmol/L (5-15) Blood Urea Nitrogen 11 mg/dL (7-18) Creatinine 0.4 MG/DL (0.55-1.30) L Estimat Glomerular Filtration Rate > 60 mL/min (>60) Glucose Level 112 MG/DL (74-106) H Calcium Level 9.7 MG/DL (8.5-10.1) Total Bilirubin 0.5 MG/DL (0.2-1.0) Aspartate Amino Transf (AST/SGOT) 36 U/L (15-37) Alanine Aminotransferase (ALT/SGPT) 91 U/L (12-78) H Alkaline Phosphatase 139 U/L (46-116) H Pro-B-Type Natriuretic Peptide 90 pg/mL (0-125) Total Protein 8.3 G/DL (6.4-8.2) H Albumin 3.6 G/DL (3.4-5.0) Globulin 4.7 g/dL Albumin/Globulin Ratio 0.8 (1.0-2.7) L Height (Feet): 5 Height (Inches): 7.00 Weight (Pounds): 160 Medications Current Medications Medications (Trade) Dose Ordered Sig/Becca Route PRN Reason Start Time Stop Time Status Last Admin Dose Admin Acetaminophen (Tylenol) 650 mg Q6H PRN GT Mild Pain/Temp > 100.5 07/17/18 08:45 08/16/18 08:44 Albuterol/ Ipratropium (Albuterol/ Ipratropium) 3 ml Q4H PRN HHN Shortness of Breath 07/17/18 08:15 07/22/18 08:14 Albuterol/ Ipratropium (Albuterol/ Ipratropium) 3 ml Q8HRT HHN 07/17/18 09:00 07/22/18 08:59 07/19/18 06:50 Atorvastatin Calcium (Lipitor) 40 mg BEDTIME GT 07/17/18 21:00 08/16/18 20:59 07/18/18 20:09 Bisacodyl (Dulcolax) 10 mg DAILYPRN PRN RECTAL Constipation 07/17/18 08:15 08/16/18 08:14 Chlorhexidine Gluconate (Lawanda-Hex 2%) 1 applic DAILY@2000 TOPIC 07/17/18 20:00 08/16/18 19:59 07/18/18 20:09 Dextrose/Sodium Chloride 1,000 ml @ 75 mls/hr [id number] IV 07/17/18 08:00 08/16/18 07:59 07/19/18 01:29 Docusate Sodium (Colace) 200 mg TWICE A DAY PRN NG Constipation 07/17/18 10:45 08/16/18 10:44 Guaifenesin (Robitussin) 100 mg Q24H PRN GT For Cough 07/17/18 08:15 08/16/18 08:14 Heparin Sodium (Porcine) (Heparin 5000 units/ml) 5,000 units EVERY 8 HOURS SUBQ 07/17/18 14:00 08/16/18 13:59 07/19/18 06:02 Heparin Sodium/ Sodium Chloride (Heparin 2000 units/Ns 1000ml premix) 2,000 unit ONCE PRN INJ PICC LINE 07/17/18 15:15 07/19/18 23:59 Lansoprazole (Prevacid) 30 mg DAILY GT 07/17/18 09:00 08/16/18 08:59 07/19/18 08:24 Lidocaine HCl (Xylocaine 1% 30ml) 30 ml ONCE PRN INJ PICC LINE 07/17/18 15:15 07/19/18 23:59 Magnesium Oxide (Mag-Ox 400mg) 400 mg DAILY GT 07/17/18 09:00 08/16/18 08:59 07/19/18 08:24 Midodrine (Pro-Amatine) 5 mg THREE TIMES A DAY GT 07/17/18 09:00 08/16/18 08:59 07/19/18 08:24 Piperacillin Sod/ Tazobactam Sod 3.375 gm/Dextrose 110 ml @ 27.5 mls/hr Q8H IVPB 07/17/18 11:00 07/24/18 10:59 07/19/18 03:38 Pyridoxine HCl (Vitamin B6) 100 mg DAILY GT 07/17/18 09:00 08/16/18 08:59 07/19/18 08:24 Sennosides (Senokot) 17.2 mg DAILY PRN GT Constipation 07/17/18 08:15 08/16/18 08:14 Vancomycin HCl (Vanco rx to dose) 1 ea DAILY MISC 07/17/18 09:00 08/16/18 08:59 Vancomycin HCl 1 gm/Dextrose 275 ml @ 183.708 mls/hr Q12H IVPB 07/18/18 13:00 07/23/18 12:59 07/19/18 01:33 Vitamin D (Vitamin D) 1,000 intlu DAILY ORAL 07/18/18 09:00 08/17/18 08:59 07/19/18 08:24 Objective Narrative Gen: NAD, on vent 30% O2 HEENT: NCAT, MMM, PERRL, No Oral lesion, no scleral icterus , Trached NECK: supple, no meningismus, No LAD, No JVD LUNGS: Coarse Left side decreased, No W CARDS: RRR, S1, S2, No M/R/G, ABD: Soft, NT, ND, No R/G, + BS, No HSM, No Masses, PEG (No E/P) : Deferred Ext: C/C/E, Pulses 2+ B/L (DP, Rad): NEURO: A/O x 0, Strength and Sensation Grossly intact PSYCH: Mood/affect normal SKIN: Warm/dry, No rashes Assessment/Plan Assessment/Plan 52 yo male with PMHx of Vent dependence, Dysphagia s/p PEG, Parapelgia, and HTN who was sent to the ED on 07[facility]16/18 [facility] for fever and increased respiratory disteress. Sepsis - resolved PNA vs UTI UA (+) 07/16 Urine Cx 07/17 - Multiple organisms not worked up 07/16/18 Blood Cx (NGTD) CXR 07/16 - LLL Collapse Vent dependent sp trach Dysphagia s/p PEG Parapelgia HTN Lumbar laminectomy. Plan - Continue Vancomcyin #3/7 and zosyn #3/7 pending Cx - F/U BCx - Monitor CBC and Temps Thank you for this consult. We will continue to follow the patient during this hospitalization. Ganga Tian MD Jul 19, 2018 09:45
--- NOTE | 2018-07-19 10:03 | Pulmonology Progress Note ---
Assessment/Plan Problems: (1) Acute on chronic respiratory failure (2) Healthcare-associated pneumonia (3) Sepsis (4) Feeding by G-tube (5) Quadriplegia (6) Vegetative state Respiratory: monitor respiratory rate, adjust FIO2, CXR Cardiac: continue to monitor HR/BP Renal: F/U I&O, keep IV fluid Infectious Disease: check cultures, continue antibiotics Gastrointestinal: continue feedings/current rate Endocrine: monitor blood sugar Hematologic: monitor H/H, transfuse if hgb<8.5 Neurologic: PRN Morphine, keep patient comfortable Affect: PRN ativan Prophylaxis: Protonix Disposition: keep in ICU Notes Reviewed: cardio, renal Discussed with: nurses, immigration case worker Subjective ROS Limited/Unobtainable: Yes Constitutional: Reports: no symptoms HEENT: Repors: no symptoms Allergies: Uncoded Allergies: SEAFOOD (Allergy, Unknown, 07/16/18) Objective Last 24 Hour Vital Signs Date Time Temp Pulse Resp B/P (MAP) Pulse Ox O2 Delivery O2 Flow Rate FiO2 07/19/18 08:57 96 14 30 07/19/18 08:00 Mechanical Ventilator 07/19/18 08:00 30 07/19/18 08:00 98.6 98 20 123/80 (94) 100 07/19/18 07:44 101 07/19/18 07:24 104 12 100 Mechanical Ventilator 30 07/19/18 06:52 102 13 30 07/19/18 06:50 101 11 100 Mechanical Ventilator 30 07/19/18 05:13 98 11 30 07/19/18 04:00 99.0 99 11 125/76 (92) 100 07/19/18 04:00 30 07/19/18 04:00 Mechanical Ventilator 07/19/18 03:36 96 07/19/18 03:25 95 11 30 07/19/18 01:57 87 18 30 07/19/18 00:00 91 07/19/18 00:00 Mechanical Ventilator 07/19/18 00:00 98.1 90 15 107/72 (84) 100 07/18/18 23:34 96 12 100 Mechanical Ventilator 30 07/18/18 23:24 92 12 99 Mechanical Ventilator 30 07/18/18 22:17 98 18 30 07/18/18 20:00 30 07/18/18 20:00 98.2 100 11 129/80 (96) 100 07/18/18 20:00 Mechanical Ventilator 07/18/18 20:00 99 07/18/18 19:41 99 12 30 07/18/18 18:03 104 12 30 07/18/18 18:00 Mechanical Ventilator 07/18/18 16:00 30 07/18/18 16:00 Mechanical Ventilator 07/18/18 16:00 97.9 106 15 130/76 (94) 99 07/18/18 15:37 86 07/18/18 15:33 84 12 100 Mechanical Ventilator 30 07/18/18 15:23 84 11 30 07/18/18 15:22 83 11 99 Mechanical Ventilator 30 07/18/18 13:29 87 12 30 07/18/18 12:00 Mechanical Ventilator 07/18/18 12:00 30 07/18/18 12:00 97.9 96 15 123/73 (90) 99 07/18/18 11:34 95 07/18/18 11:19 91 14 30 Intake and Output 07/18/18 07/19/18 18:59 06:59 Intake Total 782.750 ml 1257.620 ml Output Total 1250 ml 1300 ml Balance -467.250 ml -42.380 ml Intake Free Water 100 ml 100 ml IV Total 352.750 ml 677.620 ml Tube Feeding 330 ml 480 ml Output Urine Total 1250 ml 1300 ml # Bowel Movements 2 2 General Appearance: WD/WN HEENT: normocephalic, atraumatic Respiratory/Chest: chest wall non-tender, lungs clear Cardiovascular: normal peripheral pulses, normal rate Abdomen: normal bowel sounds Genitourinary: normal external genitalia Neurologic/Psychiatric: collector of port II-XII grossly normal Lymphatic: no neck adenopathy Microbiology Date/Time Source Procedure Growth Status 07/16/18 20:00 Blood Blood Culture - Preliminary NO GROWTH AFTER 48 HOURS Resulted 07/16/18 19:45 Blood Blood Culture - Preliminary NO GROWTH AFTER 48 HOURS Resulted 07/16/18 21:05 Nasal Nares Influenza Types A,B Antigen (ELADIO) - Final Complete 07/16/18 20:15 Nasal Nares MRSA Culture - Final NO METHICILLIN RESISTANT STAPH AUREUS... Complete 07/16/18 20:15 Urine,Clean Catch Urine Culture - Final Mixed Urogenital Contaminants Complete 07/16/18 20:15 Rectum - Final NO CARBAPENEM-RESISTANT ENTEROBACTERI... Complete 07/16/18 20:15 Rectum Received Laboratory Tests 07/19/18 04:03: White Blood Count 8.3, Red Blood Count 4.05L, Hemoglobin 11.8L, Hematocrit 35.8L , Mean Corpuscular Volume 88, Mean Corpuscular Hemoglobin 29.2, Mean Corpuscular Hemoglobin Concent 33.0, Red Cell Distribution Width 14.8, Platelet Count 347, Mean Platelet Volume 5.4L, Neutrophils (%) (Auto) 53.8, Lymphocytes ( %) (Auto) 34.7, Monocytes (%) (Auto) 5.3, Eosinophils (%) (Auto) 5.3H, Basophils (%) (Auto) 0.8, Sodium Level 141, Potassium Level 3.8, Chloride Level 102, Carbon Dioxide Level 31, Anion Gap 8, Blood Urea Nitrogen 11, Creatinine 0.4L, Estimat Glomerular Filtration Rate > 60, Glucose Level 112H, Calcium Level 9.7, Total Bilirubin 0.5, Aspartate Amino Transf (AST/SGOT) 36, Alanine Aminotransferase (ALT/SGPT) 91H, Alkaline Phosphatase 139H, Pro-B-Type Natriuretic Peptide 90, Total Protein 8.3H, Albumin 3.6, Globulin 4.7, Albumin/ Globulin Ratio 0.8L Current Medications Medications (Trade) Dose Ordered Sig/Becca Route PRN Reason Start Time Stop Time Status Last Admin Dose Admin Acetaminophen (Tylenol) 650 mg Q6H PRN GT Mild Pain/Temp > 100.5 07/17/18 08:45 08/16/18 08:44 Albuterol/ Ipratropium (Albuterol/ Ipratropium) 3 ml Q4H PRN HHN Shortness of Breath 07/17/18 08:15 07/22/18 08:14 Albuterol/ Ipratropium (Albuterol/ Ipratropium) 3 ml Q8HRT HHN 07/17/18 09:00 07/22/18 08:59 07/19/18 06:50 Atorvastatin Calcium (Lipitor) 40 mg BEDTIME GT 07/17/18 21:00 08/16/18 20:59 07/18/18 20:09 Bisacodyl (Dulcolax) 10 mg DAILYPRN PRN RECTAL Constipation 07/17/18 08:15 08/16/18 08:14 Chlorhexidine Gluconate (Lawanda-Hex 2%) 1 applic DAILY@2000 TOPIC 07/17/18 20:00 08/16/18 19:59 07/18/18 20:09 Dextrose/Sodium Chloride 1,000 ml @ 75 mls/hr [id number] IV 07/17/18 08:00 08/16/18 07:59 07/19/18 01:29 Docusate Sodium (Colace) 200 mg TWICE A DAY PRN NG Constipation 07/17/18 10:45 08/16/18 10:44 Guaifenesin (Robitussin) 100 mg Q24H PRN GT For Cough 07/17/18 08:15 08/16/18 08:14 Heparin Sodium (Porcine) (Heparin 5000 units/ml) 5,000 units EVERY 8 HOURS SUBQ 07/17/18 14:00 08/16/18 13:59 07/19/18 06:02 Heparin Sodium/ Sodium Chloride (Heparin 2000 units/Ns 1000ml premix) 2,000 unit ONCE PRN INJ PICC LINE 07/17/18 15:15 07/19/18 23:59 Lansoprazole (Prevacid) 30 mg DAILY GT 07/17/18 09:00 08/16/18 08:59 07/19/18 08:24 Lidocaine HCl (Xylocaine 1% 30ml) 30 ml ONCE PRN INJ PICC LINE 07/17/18 15:15 07/19/18 23:59 Magnesium Oxide (Mag-Ox 400mg) 400 mg DAILY GT 07/17/18 09:00 08/16/18 08:59 07/19/18 08:24 Midodrine (Pro-Amatine) 5 mg THREE TIMES A DAY GT 07/17/18 09:00 08/16/18 08:59 07/19/18 08:24 Piperacillin Sod/ Tazobactam Sod 3.375 gm/Dextrose 110 ml @ 27.5 mls/hr Q8H IVPB 07/17/18 11:00 07/24/18 10:59 07/19/18 03:38 Pyridoxine HCl (Vitamin B6) 100 mg DAILY GT 07/17/18 09:00 08/16/18 08:59 07/19/18 08:24 Sennosides (Senokot) 17.2 mg DAILY PRN GT Constipation 07/17/18 08:15 08/16/18 08:14 Vancomycin HCl (Vanco rx to dose) 1 ea DAILY MISC 07/17/18 09:00 08/16/18 08:59 Vancomycin HCl 1 gm/Dextrose 275 ml @ 183.708 mls/hr Q12H IVPB 07/18/18 13:00 07/23/18 12:59 07/19/18 01:33 Vitamin D (Vitamin D) 1,000 intlu DAILY ORAL 07/18/18 09:00 08/17/18 08:59 07/19/18 08:24 Milena Ross MD Jul 19, 2018 10:03
--- NOTE | 2018-07-19 11:19 | Cardiac Electrophysiology PN ---
Assessment/Plan Assessment/Plan 1. Troponin elevation. The levels are flat. The patient is nonverbal. Likely due to dehydration. Echo EF 55% 2. Ventilator-dependent respiratory failure, status post tracheostomy. 3. Dysphagia, status post percutaneous endoscopic gastrostomy placement. 4. Hypokalemia. 5. Azotemia.On iv fluid 6. Encephalopathy Subjective Subjective No new events. Mother at bedside. On the vent. In SR Objective Last 24 Hour Vital Signs Date Time Temp Pulse Resp B/P (MAP) Pulse Ox O2 Delivery O2 Flow Rate FiO2 07/19/18 08:57 96 14 30 07/19/18 08:00 Mechanical Ventilator 07/19/18 08:00 30 07/19/18 08:00 98.6 98 20 123/80 (94) 100 07/19/18 07:44 101 07/19/18 07:24 104 12 100 Mechanical Ventilator 30 07/19/18 06:52 102 13 30 07/19/18 06:50 101 11 100 Mechanical Ventilator 30 07/19/18 05:13 98 11 30 07/19/18 04:00 99.0 99 11 125/76 (92) 100 07/19/18 04:00 30 07/19/18 04:00 Mechanical Ventilator 07/19/18 03:36 96 07/19/18 03:25 95 11 30 07/19/18 01:57 87 18 30 07/19/18 00:00 91 07/19/18 00:00 Mechanical Ventilator 07/19/18 00:00 98.1 90 15 107/72 (84) 100 07/18/18 23:34 96 12 100 Mechanical Ventilator 30 07/18/18 23:24 92 12 99 Mechanical Ventilator 30 07/18/18 22:17 98 18 30 07/18/18 20:00 30 07/18/18 20:00 98.2 100 11 129/80 (96) 100 07/18/18 20:00 Mechanical Ventilator 07/18/18 20:00 99 07/18/18 19:41 99 12 30 07/18/18 18:03 104 12 30 07/18/18 18:00 Mechanical Ventilator 07/18/18 16:00 30 07/18/18 16:00 Mechanical Ventilator 07/18/18 16:00 97.9 106 15 130/76 (94) 99 07/18/18 15:37 86 07/18/18 15:33 84 12 100 Mechanical Ventilator 30 07/18/18 15:23 84 11 30 07/18/18 15:22 83 11 99 Mechanical Ventilator 30 07/18/18 13:29 87 12 30 07/18/18 12:00 Mechanical Ventilator 07/18/18 12:00 30 07/18/18 12:00 97.9 96 15 123/73 (90) 99 07/18/18 11:34 95 07/18/18 11:19 91 14 30 Intake and Output 07/18/18 07/19/18 18:59 06:59 Intake Total 782.750 ml 1257.620 ml Output Total 1250 ml 1300 ml Balance -467.250 ml -42.380 ml Intake Free Water 100 ml 100 ml IV Total 352.750 ml 677.620 ml Tube Feeding 330 ml 480 ml Output Urine Total 1250 ml 1300 ml # Bowel Movements 2 2 Laboratory Tests Test 07/19/18 04:03 White Blood Count 8.3 K/UL (4.8-10.8) Red Blood Count 4.05 M/UL (4.70-6.10) L Hemoglobin 11.8 G/DL (14.2-18.0) L Hematocrit 35.8 % (42.0-52.0) L Mean Corpuscular Volume 88 FL (80-99) Mean Corpuscular Hemoglobin 29.2 PG (27.0-31.0) Mean Corpuscular Hemoglobin Concent 33.0 G/DL (32.0-36.0) Red Cell Distribution Width 14.8 % (11.6-14.8) Platelet Count 347 K/UL (150-450) Mean Platelet Volume 5.4 FL (6.5-10.1) L Neutrophils (%) (Auto) 53.8 % (45.0-75.0) Lymphocytes (%) (Auto) 34.7 % (20.0-45.0) Monocytes (%) (Auto) 5.3 % (1.0-10.0) Eosinophils (%) (Auto) 5.3 % (0.0-3.0) H Basophils (%) (Auto) 0.8 % (0.0-2.0) Sodium Level 141 MMOL/L (136-145) Potassium Level 3.8 MMOL/L (3.5-5.1) Chloride Level 102 MMOL/L (98-107) Carbon Dioxide Level 31 MMOL/L (21-32) Anion Gap 8 mmol/L (5-15) Blood Urea Nitrogen 11 mg/dL (7-18) Creatinine 0.4 MG/DL (0.55-1.30) L Estimat Glomerular Filtration Rate > 60 mL/min (>60) Glucose Level 112 MG/DL (74-106) H Calcium Level 9.7 MG/DL (8.5-10.1) Total Bilirubin 0.5 MG/DL (0.2-1.0) Aspartate Amino Transf (AST/SGOT) 36 U/L (15-37) Alanine Aminotransferase (ALT/SGPT) 91 U/L (12-78) H Alkaline Phosphatase 139 U/L (46-116) H Pro-B-Type Natriuretic Peptide 90 pg/mL (0-125) Total Protein 8.3 G/DL (6.4-8.2) H Albumin 3.6 G/DL (3.4-5.0) Globulin 4.7 g/dL Albumin/Globulin Ratio 0.8 (1.0-2.7) L Microbiology Date/Time Source Procedure Growth Status 07/16/18 20:00 Blood Blood Culture - Preliminary NO GROWTH AFTER 48 HOURS Resulted 07/16/18 19:45 Blood Blood Culture - Preliminary NO GROWTH AFTER 48 HOURS Resulted 07/16/18 21:05 Nasal Nares Influenza Types A,B Antigen (ELADIO) - Final Complete 07/16/18 20:15 Nasal Nares MRSA Culture - Final NO METHICILLIN RESISTANT STAPH AUREUS... Complete 07/16/18 20:15 Urine,Clean Catch Urine Culture - Final Mixed Urogenital Contaminants Complete 07/16/18 20:15 Rectum - Final NO CARBAPENEM-RESISTANT ENTEROBACTERI... Complete 07/16/18 20:15 Rectum VRE Culture - Final Enterococcus Faecalis - Vre Complete Objective HEAD AND NECK: No JVD. Status post tracheostomy. LUNGS: Coarse rhonchi. CARDIOVASCULAR: Regular S1 and S2 with no gallop. ABDOMEN: Status post PEG. EXTREMITIES: With no pitting edema. NEUROLOGIC: He is quadriplegic and nonverbal. Wale Severino MD Jul 19, 2018 11:19
[2018-07-19 12:00] VITALS: BP 131/85
--- NOTE | 2018-07-19 13:14 | Diagnostic Imaging Report ---
Indication: Dyspnea Comparison: 07/16/2018 A single view chest radiograph was obtained. Findings: There is silhouetting of the left hemidiaphragm. Effusion and/or infiltrate may be present. PICC line has been placed. The tip of the line is not well seen but projected to at least the level of the right atrium. Tracheostomy is present. IMPRESSION: PICC line placement showing the tip of the catheter projected over the right atrium. Left basilar consolidation/atelectasis.
[2018-07-19 16:00] VITALS: BP 131/79
--- NOTE | 2018-07-19 16:27 | Internal Med Progress Note ---
Subjective Physician Name Zeyad Simmons Attending Physician Wilner Suarez MD Current Medications Medications (Trade) Dose Ordered Sig/Becca Route PRN Reason Start Time Stop Time Status Last Admin Dose Admin Acetaminophen (Tylenol) 650 mg Q6H PRN GT Mild Pain/Temp > 100.5 07/17/18 08:45 08/16/18 08:44 Albuterol/ Ipratropium (Albuterol/ Ipratropium) 3 ml Q4H PRN HHN Shortness of Breath 07/17/18 08:15 07/22/18 08:14 Albuterol/ Ipratropium (Albuterol/ Ipratropium) 3 ml Q8HRT HHN 07/17/18 09:00 07/22/18 08:59 07/19/18 14:59 Atorvastatin Calcium (Lipitor) 40 mg BEDTIME GT 07/17/18 21:00 08/16/18 20:59 07/18/18 20:09 Bisacodyl (Dulcolax) 10 mg DAILYPRN PRN RECTAL Constipation 07/17/18 08:15 08/16/18 08:14 Chlorhexidine Gluconate (Lawanda-Hex 2%) 1 applic DAILY@2000 TOPIC 07/17/18 20:00 08/16/18 19:59 07/18/18 20:09 Dextrose/Sodium Chloride 1,000 ml @ 75 mls/hr [id number] IV 07/17/18 08:00 08/16/18 07:59 07/19/18 13:09 Docusate Sodium (Colace) 200 mg TWICE A DAY PRN NG Constipation 07/17/18 10:45 08/16/18 10:44 Guaifenesin (Robitussin) 100 mg Q24H PRN GT For Cough 07/17/18 08:15 08/16/18 08:14 Heparin Sodium (Porcine) (Heparin 5000 units/ml) 5,000 units EVERY 8 HOURS SUBQ 07/17/18 14:00 08/16/18 13:59 07/19/18 13:11 Heparin Sodium/ Sodium Chloride (Heparin 2000 units/Ns 1000ml premix) 2,000 unit ONCE PRN INJ PICC LINE 07/17/18 15:15 07/19/18 23:59 Lansoprazole (Prevacid) 30 mg DAILY GT 07/17/18 09:00 08/16/18 08:59 07/19/18 08:24 Lidocaine HCl (Xylocaine 1% 30ml) 30 ml ONCE PRN INJ PICC LINE 07/17/18 15:15 07/19/18 23:59 Magnesium Oxide (Mag-Ox 400mg) 400 mg DAILY GT 07/17/18 09:00 08/16/18 08:59 07/19/18 08:24 Midodrine (Pro-Amatine) 5 mg THREE TIMES A DAY GT 07/17/18 09:00 08/16/18 08:59 07/19/18 13:08 Piperacillin Sod/ Tazobactam Sod 3.375 gm/Dextrose 110 ml @ 27.5 mls/hr Q8H IVPB 07/17/18 11:00 07/24/18 10:59 07/19/18 10:18 Pyridoxine HCl (Vitamin B6) 100 mg DAILY GT 07/17/18 09:00 08/16/18 08:59 07/19/18 08:24 Sennosides (Senokot) 17.2 mg DAILY PRN GT Constipation 07/17/18 08:15 08/16/18 08:14 Vancomycin HCl (Vanco rx to dose) 1 ea DAILY MISC 07/17/18 09:00 08/16/18 08:59 Vancomycin HCl 1 gm/Dextrose 275 ml @ 183.708 mls/hr Q12H IVPB 07/18/18 13:00 07/23/18 12:59 07/19/18 13:09 Vitamin D (Vitamin D) 1,000 intlu DAILY ORAL 07/18/18 09:00 08/17/18 08:59 07/19/18 08:24 Allergies: Uncoded Allergies: SEAFOOD (Allergy, Unknown, 07/16/18) Subjective 52 YO M paraplegic with chronic vent dep admitted with Shortness of breath. Now LLL pneumonia and elevated troponin. Cover for Int Med-dr Suarez. DIANNE Objective Last Vital Signs Date Time Temp Pulse Resp B/P (MAP) Pulse Ox O2 Delivery O2 Flow Rate FiO2 07/19/18 16:00 30 07/19/18 16:00 Mechanical Ventilator 07/19/18 14:59 93 11 100 07/19/18 12:00 97.5 131/85 (100) Laboratory Tests Test 07/19/18 04:03 White Blood Count 8.3 K/UL (4.8-10.8) Red Blood Count 4.05 M/UL (4.70-6.10) L Hemoglobin 11.8 G/DL (14.2-18.0) L Hematocrit 35.8 % (42.0-52.0) L Mean Corpuscular Volume 88 FL (80-99) Mean Corpuscular Hemoglobin 29.2 PG (27.0-31.0) Mean Corpuscular Hemoglobin Concent 33.0 G/DL (32.0-36.0) Red Cell Distribution Width 14.8 % (11.6-14.8) Platelet Count 347 K/UL (150-450) Mean Platelet Volume 5.4 FL (6.5-10.1) L Neutrophils (%) (Auto) 53.8 % (45.0-75.0) Lymphocytes (%) (Auto) 34.7 % (20.0-45.0) Monocytes (%) (Auto) 5.3 % (1.0-10.0) Eosinophils (%) (Auto) 5.3 % (0.0-3.0) H Basophils (%) (Auto) 0.8 % (0.0-2.0) Sodium Level 141 MMOL/L (136-145) Potassium Level 3.8 MMOL/L (3.5-5.1) Chloride Level 102 MMOL/L (98-107) Carbon Dioxide Level 31 MMOL/L (21-32) Anion Gap 8 mmol/L (5-15) Blood Urea Nitrogen 11 mg/dL (7-18) Creatinine 0.4 MG/DL (0.55-1.30) L Estimat Glomerular Filtration Rate > 60 mL/min (>60) Glucose Level 112 MG/DL (74-106) H Calcium Level 9.7 MG/DL (8.5-10.1) Total Bilirubin 0.5 MG/DL (0.2-1.0) Aspartate Amino Transf (AST/SGOT) 36 U/L (15-37) Alanine Aminotransferase (ALT/SGPT) 91 U/L (12-78) H Alkaline Phosphatase 139 U/L (46-116) H Pro-B-Type Natriuretic Peptide 90 pg/mL (0-125) Total Protein 8.3 G/DL (6.4-8.2) H Albumin 3.6 G/DL (3.4-5.0) Globulin 4.7 g/dL Albumin/Globulin Ratio 0.8 (1.0-2.7) L Microbiology Date/Time Source Procedure Growth Status 07/16/18 20:00 Blood Blood Culture - Preliminary NO GROWTH AFTER 48 HOURS Resulted 07/16/18 19:45 Blood Blood Culture - Preliminary NO GROWTH AFTER 48 HOURS Resulted 07/16/18 21:05 Nasal Nares Influenza Types A,B Antigen (ELADIO) - Final Complete 07/16/18 20:15 Nasal Nares MRSA Culture - Final NO METHICILLIN RESISTANT STAPH AUREUS... Complete 07/16/18 20:15 Urine,Clean Catch Urine Culture - Final Mixed Urogenital Contaminants Complete 07/16/18 20:15 Rectum - Final NO CARBAPENEM-RESISTANT ENTEROBACTERI... Complete 07/16/18 20:15 Rectum VRE Culture - Final Enterococcus Faecalis - Vre Complete Intake and Output 07/18/18 07/19/18 19:00 07:00 Intake Total 747.750 ml 1360.120 ml Output Total 1250 ml 1300 ml Balance -502.250 ml 60.120 ml Intake Free Water 100 ml 100 ml IV Total 277.750 ml 780.120 ml Tube Feeding 370 ml 480 ml Output Urine Total 1250 ml 1300 ml # Bowel Movements 2 2 Objective GENERAL: The patient is well-developed, well-nourished male, who is intubated. HEENT: Eyes, pupils equal and responsive to light and accommodation. Extraocular movements are intact. NECK: Tracheosotmy; Supple without lymphadenopathy. CHEST: Mech vent; Decreased breath sounds, left lower lobe. Otherwise, without wheezes or rales. CARDIOVASCULAR: Tachycardic, regular rhythm. S1 and S2 are normal without murmurs, rubs, gallops. ABDOMEN: Soft, nontender, and nondistended. Positive bowel sounds. No evidence of hepatosplenomegaly. Currently, no rebound or guarding noted. NEUROLOGICAL: The patient is paraplegic. Cranial nerves II through XII are grossly intact without focal deficits. Assessment/Plan Problem List: (1) Hypertension (2) Dysphagia Assessment & Plan: On G-tube feeds (3) Healthcare-associated pneumonia Assessment & Plan: Continue zosyn and vanco per pulmonary (4) Acute on chronic respiratory failure Assessment & Plan: Chronic vent dep-see pulmonary note. (5) Elevated troponin Assessment & Plan: see cardiology note. (6) Quadriplegia (7) Feeding by G-tube (8) NSTEMI (non-ST elevated myocardial infarction) (9) Vegetative state Status: not improved Zeyad Simmons MD Jul 19, 2018 16:27
--- NOTE | 2018-07-19 19:05 | NUR ---
NURSE NOTES: Report received from MELECIO Mujica. Observed pt lying on bed, open eyes, non-verbal. No signs of pain and distress noted at this time. Family member at the bedside. SR with air sampling and monitoring. Trach on vent, portex 6, AC 10, TD 550, FiO2 30%. GT site intact and patent, running Osmolite 1.5 at 50cc/hr. PICC line on L UA, intact and patent, running NS 75cc/hr. Bed in the lowest position. Side rails up x3. Will continue to monitor.
--- NOTE | 2018-07-19 19:06 | NUR ---
HAND-OFF: Report given to MELECIO Chinchilla. Patient stable and in no distress.
[2018-07-19 20:00] VITALS: BP 146/84
[2018-07-19] MEDS: Dyna-Hex 2% Top Sol 2oz TOPIC SCH (20:00)
[2018-07-19] MEDS: Atorvastatin 20mg tab GT SCH (21:30)
[2018-07-20] VITALS: BP 123/81
[2018-07-20] MEDS: D5 1/2NS 1,000 ML IV SCH ×2 (02:39→17:46)
--- NOTE | 2018-07-20 02:49 | NUR ---
NURSE NOTES: Observed pt lying on bed, awake, no signs of pain and acute distress noted. pt on vent, saturating at 99%. Will continue to monitor.
[2018-07-20] MEDS: Piperacillin/Tazobactam 3.375 GM in D5W 110 ML IVPB SCH ×3 (03:00→18:24)
[2018-07-20 04:00] VITALS: BP 123/88
[2018-07-20] MEDS: Heparin 5000 units/ml inj SUBQ SCH ×3 (06:05→21:50)
[2018-07-20 06:38] LABS: BASOPHILS % (AUTO) 0.5 % (0.0-2.0); HEMATOCRIT 30.7 % (42.0-52.0); HEMOGLOBIN 10.2 G/DL (14.2-18.0); LYMPHOCYTES % (AUTO) 22.3 % (20.0-45.0); MEAN CORPUSCULAR VOLUME 88 FL (80-99); MONOCYTES % (AUTO) 4.7 % (1.0-10.0); NEUTROPHILS % (AUTO) 66.5 % (45.0-75.0); PLATELET COUNT 319 K/UL (150-450); RED BLOOD COUNT 3.49 M/UL (4.70-6.10); RED CELL DISTRIBUTION WIDTH 14.2 % (11.6-14.8)
--- NOTE | 2018-07-20 07:02 | NUR ---
Patient was received on vent settings of ACVC 10, 550 VT, 30%, PEEP +5. Pt is trached on a portex 6. Breath sounds are diminished. Thin, clear secretions SX PRN. Alarms are on and audible. Vent is plugged into red outlet. No respiratory distress noted. Will continue monitor throughout the day.
[2018-07-20] MEDS: Albuterol/Ipratropium 3ml neb HHN SCH ×3 (07:05→22:55)
[2018-07-20 07:06] LABS: ALANINE AMINOTRANSFERASE 88 U/L (12-78); ALBUMIN 3.2 G/DL (3.4-5.0); ALBUMIN/GLOBULIN RATIO 0.7 (1.0-2.7); ALKALINE PHOSPHATASE 121 U/L (46-116); ANION GAP 9 mmol/L (5-15); ASPARTATE AMINO TRANSFERASE 34 U/L (15-37); BILIRUBIN,TOTAL 0.5 MG/DL (0.2-1.0); BLOOD UREA NITROGEN 12 mg/dL (7-18); CALCIUM 9.3 MG/DL (8.5-10.1); CARBON DIOXIDE 30 MMOL/L (21-32); CHLORIDE 103 MMOL/L (98-107); CREATININE 0.4 MG/DL (0.55-1.30); PHOSPHORUS 3.1 MG/DL (2.5-4.9); SODIUM 142 MMOL/L (136-145)
[2018-07-20 07:20] LABS: POTASSIUM 2.7 MMOL/L (3.5-5.1)
--- NOTE | 2018-07-20 07:30 | NUR ---
HAND-OFF: Report given to MELECIO Schuler. No acute distress noted.
[2018-07-20 08:00] VITALS: BP 135/84
[2018-07-20] MEDS: Vitamin D 1000 IU Tab ORAL SCH (08:59)
[2018-07-20] MEDS: Magnesium Oxide 400mg tab GT SCH (08:59)
[2018-07-20] MEDS: Pyridoxine 50mg tab GT SCH (08:59)
[2018-07-20] MEDS: Vancomycin 1250mg/D5W 250ml IVPB SCH (08:59)
--- NOTE | 2018-07-20 09:19 | Infectious Diseases Prog Note ---
Assessment/Plan Assessment/Plan 52 yo male with PMHx of Vent dependence, Dysphagia s/p PEG, Parapelgia, and HTN who was sent to the ED on 07/16/18 from his detention for fever and increased respiratory disteress. Sepsis - resolved PNA vs UTI UA (+) 07/16 Urine Cx 07/17 - Multiple organisms not worked up 07/16/18 Blood Cx (NGTD) CXR 07/16 - LLL Collapse Vent dependent sp trach Dysphagia s/p PEG Parapelgia HTN Lumbar laminectomy. Plan - Continue Vancomcyin #4/7 and zosyn #4/7 (End date 07/23/18) - Monitor CBC and Temps Thank you for this consult. We will continue to follow the patient during this hospitalization. Subjective Allergies: Uncoded Allergies: SEAFOOD (Allergy, Severe, Anaphylaxis, 07/20/18) All Seafood Subjective Patient afebrile Mild leukocytosis Not verbal Objective Vital Signs Last 24 Hour Vital Signs Date Time Temp Pulse Resp B/P (MAP) Pulse Ox O2 Delivery O2 Flow Rate FiO2 07/20/18 08:00 30 07/20/18 08:00 97.3 107 14 135/84 (101) 97 07/20/18 08:00 101 07/20/18 07:08 94 10 100 Mechanical Ventilator 30 07/20/18 07:05 96 13 30 07/20/18 07:00 95 13 100 Mechanical Ventilator 30 07/20/18 04:52 99 15 30 07/20/18 04:00 Mechanical Ventilator 07/20/18 04:00 30 07/20/18 04:00 97.7 109 13 123/88 (100) 100 07/20/18 04:00 111 07/20/18 03:05 108 16 30 07/20/18 00:53 94 11 30 07/20/18 00:00 103 07/20/18 00:00 97.2 98 12 123/81 (95) 100 07/20/18 00:00 Mechanical Ventilator 07/19/18 22:59 96 15 99 Mechanical Ventilator 30 07/19/18 22:49 93 12 30 07/19/18 22:49 93 12 99 Mechanical Ventilator 30 07/19/18 21:01 91 15 30 07/19/18 20:00 30 07/19/18 20:00 98.1 94 12 146/84 (104) 100 07/19/18 20:00 93 07/19/18 20:00 Mechanical Ventilator 07/19/18 19:15 101 13 30 07/19/18 17:12 100 12 30 07/19/18 16:00 30 07/19/18 16:00 Mechanical Ventilator 07/19/18 16:00 97.7 86 12 131/79 (96) 100 07/19/18 15:27 83 07/19/18 14:59 93 11 100 Mechanical Ventilator 30 07/19/18 14:59 87 13 30 07/19/18 13:25 102 13 30 07/19/18 12:00 30 07/19/18 12:00 97.5 104 16 131/85 (100) 100 07/19/18 12:00 Mechanical Ventilator 07/19/18 11:41 93 07/19/18 11:21 92 11 30 Height (Feet): 5 Height (Inches): 7.00 Weight (Pounds): 157 Objective Gen: NAD, on vent 30% O2 HEENT: NCAT, MMM, PERRL LUNGS: Coarse Left side decreased, No W CARDS: RRR, S1, S2, No M/R/G, ABD: Soft, NT, ND, + BS, PEG (No E/P) Laboratory Tests Test 07/20/18 00:40 07/20/18 04:00 Vancomycin Level Trough 26.6 ug/mL (5.0-12.0) H White Blood Count 11.0 K/UL (4.8-10.8) H Red Blood Count 3.49 M/UL (4.70-6.10) L Hemoglobin 10.2 G/DL (14.2-18.0) L Hematocrit 30.7 % (42.0-52.0) L Mean Corpuscular Volume 88 FL (80-99) Mean Corpuscular Hemoglobin 29.3 PG (27.0-31.0) Mean Corpuscular Hemoglobin Concent 33.3 G/DL (32.0-36.0) Red Cell Distribution Width 14.2 % (11.6-14.8) Platelet Count 319 K/UL (150-450) Mean Platelet Volume 5.0 FL (6.5-10.1) L Neutrophils (%) (Auto) 66.5 % (45.0-75.0) Lymphocytes (%) (Auto) 22.3 % (20.0-45.0) Monocytes (%) (Auto) 4.7 % (1.0-10.0) Eosinophils (%) (Auto) 6.0 % (0.0-3.0) H Basophils (%) (Auto) 0.5 % (0.0-2.0) Sodium Level 142 MMOL/L (136-145) Potassium Level 2.7 MMOL/L (3.5-5.1) *L Chloride Level 103 MMOL/L (98-107) Carbon Dioxide Level 30 MMOL/L (21-32) Anion Gap 9 mmol/L (5-15) Blood Urea Nitrogen 12 mg/dL (7-18) Creatinine 0.4 MG/DL (0.55-1.30) L Estimat Glomerular Filtration Rate > 60 mL/min (>60) Glucose Level 125 MG/DL (74-106) H Calcium Level 9.3 MG/DL (8.5-10.1) Phosphorus Level 3.1 MG/DL (2.5-4.9) Magnesium Level 2.3 MG/DL (1.8-2.4) Total Bilirubin 0.5 MG/DL (0.2-1.0) Aspartate Amino Transf (AST/SGOT) 34 U/L (15-37) Alanine Aminotransferase (ALT/SGPT) 88 U/L (12-78) H Alkaline Phosphatase 121 U/L (46-116) H Total Protein 7.5 G/DL (6.4-8.2) Albumin 3.2 G/DL (3.4-5.0) L Globulin 4.3 g/dL Albumin/Globulin Ratio 0.7 (1.0-2.7) L Current Medications Medications (Trade) Dose Ordered Sig/Becca Route PRN Reason Start Time Stop Time Status Last Admin Dose Admin Acetaminophen (Tylenol) 650 mg Q6H PRN GT Mild Pain/Temp > 100.5 07/17/18 08:45 08/16/18 08:44 Albuterol/ Ipratropium (Albuterol/ Ipratropium) 3 ml Q4H PRN HHN Shortness of Breath 07/17/18 08:15 07/22/18 08:14 Albuterol/ Ipratropium (Albuterol/ Ipratropium) 3 ml Q8HRT HHN 07/17/18 09:00 07/22/18 08:59 07/20/18 07:05 Atorvastatin Calcium (Lipitor) 40 mg BEDTIME GT 07/17/18 21:00 08/16/18 20:59 07/19/18 21:30 Bisacodyl (Dulcolax) 10 mg DAILYPRN PRN RECTAL Constipation 07/17/18 08:15 08/16/18 08:14 Chlorhexidine Gluconate (Lawanda-Hex 2%) 1 applic DAILY@2000 TOPIC 07/17/18 20:00 08/16/18 19:59 07/19/18 20:00 Dextrose/Sodium Chloride 1,000 ml @ 75 mls/hr [id number] IV 07/17/18 08:00 08/16/18 07:59 07/20/18 02:39 Docusate Sodium (Colace) 200 mg TWICE A DAY PRN NG Constipation 07/17/18 10:45 08/16/18 10:44 Guaifenesin (Robitussin) 100 mg Q24H PRN GT For Cough 07/17/18 08:15 08/16/18 08:14 Heparin Sodium (Porcine) (Heparin 5000 units/ml) 5,000 units EVERY 8 HOURS SUBQ 07/17/18 14:00 08/16/18 13:59 07/20/18 06:05 Lansoprazole (Prevacid) 30 mg DAILY GT 07/17/18 09:00 08/16/18 08:59 07/20/18 08:59 Magnesium Oxide (Mag-Ox 400mg) 400 mg DAILY GT 07/17/18 09:00 08/16/18 08:59 07/20/18 08:59 Midodrine (Pro-Amatine) 5 mg THREE TIMES A DAY GT 07/17/18 09:00 08/16/18 08:59 07/20/18 08:59 Piperacillin Sod/ Tazobactam Sod 3.375 gm/Dextrose 110 ml @ 27.5 mls/hr Q8H IVPB 07/17/18 11:00 07/24/18 10:59 07/20/18 03:00 Pyridoxine HCl (Vitamin B6) 100 mg DAILY GT 07/17/18 09:00 2/5/19 08:59 07/20/18 08:59 Sennosides (Senokot) 17.2 mg DAILY PRN GT Constipation 07/17/18 08:15 08/16/18 08:14 Vancomycin HCl (Vanco rx to dose) 1 ea DAILY MISC 07/17/18 09:00 08/16/18 08:59 Vancomycin HCl/ Dextrose 250 ml @ 166.667 mls/hr Q24H IVPB 07/20/18 09:00 07/25/18 08:59 07/20/18 08:59 Vitamin D (Vitamin D) 1,000 intlu DAILY ORAL 07/18/18 09:00 08/17/18 08:59 07/20/18 08:59 Ganga Tian MD Jul 20, 2018 09:19
--- NOTE | 2018-07-20 10:16 | NUR ---
HAND-OFF: Report given to MELECIO Solano.
--- NOTE | 2018-07-20 11:05 | Pulmonology Progress Note ---
Assessment/Plan Problems: (1) Acute on chronic respiratory failure (2) Healthcare-associated pneumonia (3) Sepsis (4) Feeding by G-tube (5) Quadriplegia (6) Vegetative state Respiratory: monitor respiratory rate, adjust FIO2, CXR Cardiac: continue to monitor HR/BP Renal: F/U I&O, keep IV fluid, check electrolytes Infectious Disease: check cultures, continue antibiotics Gastrointestinal: hold feedings Endocrine: check TSH Hematologic: monitor H/H Neurologic: PRN Morphine, keep patient comfortable Affect: PRN ativan Prophylaxis: Protonix Notes Reviewed: renal Discussed with: nurses, consultants, vocational case manager Subjective ROS Limited/Unobtainable: No Constitutional: Reports: no symptoms HEENT: Repors: no symptoms Cardiovascular: Reports: no symptoms Allergies: Uncoded Allergies: SEAFOOD (Allergy, Severe, Anaphylaxis, 07/20/18) All Seafood Objective Last 24 Hour Vital Signs Date Time Temp Pulse Resp B/P (MAP) Pulse Ox O2 Delivery O2 Flow Rate FiO2 07/20/18 09:04 98 15 30 07/20/18 08:00 30 07/20/18 08:00 97.3 107 14 135/84 (101) 97 07/20/18 08:00 101 07/20/18 07:08 94 10 100 Mechanical Ventilator 30 07/20/18 07:05 96 13 30 07/20/18 07:00 95 13 100 Mechanical Ventilator 30 07/20/18 04:52 99 15 30 07/20/18 04:00 Mechanical Ventilator 07/20/18 04:00 30 07/20/18 04:00 97.7 109 13 123/88 (100) 100 07/20/18 04:00 111 07/20/18 03:05 108 16 30 07/20/18 00:53 94 11 30 07/20/18 00:00 103 07/20/18 00:00 97.2 98 12 123/81 (95) 100 07/20/18 00:00 Mechanical Ventilator 07/19/18 22:59 96 15 99 Mechanical Ventilator 30 07/19/18 22:49 93 12 30 07/19/18 22:49 93 12 99 Mechanical Ventilator 30 07/19/18 21:01 91 15 30 07/19/18 20:00 30 07/19/18 20:00 98.1 94 12 146/84 (104) 100 07/19/18 20:00 93 07/19/18 20:00 Mechanical Ventilator 07/19/18 19:15 101 13 30 07/19/18 17:12 100 12 30 07/19/18 16:00 30 07/19/18 16:00 Mechanical Ventilator 07/19/18 16:00 97.7 86 12 131/79 (96) 100 07/19/18 15:27 83 07/19/18 14:59 93 11 100 Mechanical Ventilator 30 07/19/18 14:59 87 13 30 07/19/18 13:25 102 13 30 07/19/18 12:00 30 07/19/18 12:00 97.5 104 16 131/85 (100) 100 07/19/18 12:00 Mechanical Ventilator 07/19/18 11:41 93 07/19/18 11:21 92 11 30 Intake and Output 07/19/18 07/20/18 18:59 06:59 Intake Total 1665.500 ml 1842.5 ml Output Total 250 ml 750 ml Balance 1415.500 ml 1092.5 ml Intake Free Water 200 ml 150 ml IV Total 1115.500 ml 1092.5 ml Tube Feeding 350 ml 600 ml Output Urine Total 250 ml 750 ml # Bowel Movements 3 General Appearance: WD/WN HEENT: normocephalic, anicteric Respiratory/Chest: chest wall non-tender, lungs clear Cardiovascular: normal peripheral pulses, normal rate Abdomen: normal bowel sounds, soft, non tender Extremities: no cyanosis, no clubbing Neurologic/Psychiatric: no motor/sensory deficits Lymphatic: no groin adenopathy Musculoskeletal: normal muscle bulk Laboratory Tests 07/20/18 00:40: Vancomycin Level Trough 26.6H 07/20/18 04:00: White Blood Count 11.0H, Red Blood Count 3.49L, Hemoglobin 10.2L, Hematocrit 30.7L, Mean Corpuscular Volume 88, Mean Corpuscular Hemoglobin 29.3, Mean Corpuscular Hemoglobin Concent 33.3, Red Cell Distribution Width 14.2, Platelet Count 319, Mean Platelet Volume 5.0L, Neutrophils (%) (Auto) 66.5, Lymphocytes ( %) (Auto) 22.3, Monocytes (%) (Auto) 4.7, Eosinophils (%) (Auto) 6.0H, Basophils (%) (Auto) 0.5, Sodium Level 142, Potassium Level 2.7*L, Chloride Level 103, Carbon Dioxide Level 30, Anion Gap 9, Blood Urea Nitrogen 12, Creatinine 0.4L, Estimat Glomerular Filtration Rate > 60, Glucose Level 125H, Calcium Level 9.3, Phosphorus Level 3.1, Magnesium Level 2.3, Total Bilirubin 0.5, Aspartate Amino Transf (AST/SGOT) 34, Alanine Aminotransferase (ALT/SGPT) 88H, Alkaline Phosphatase 121H, Total Protein 7.5, Albumin 3.2L, Globulin 4.3, Albumin/Globulin Ratio 0.7L Current Medications Medications (Trade) Dose Ordered Sig/Becca Route PRN Reason Start Time Stop Time Status Last Admin Dose Admin Acetaminophen (Tylenol) 650 mg Q6H PRN GT Mild Pain/Temp > 100.5 07/17/18 08:45 08/16/18 08:44 Albuterol/ Ipratropium (Albuterol/ Ipratropium) 3 ml Q4H PRN HHN Shortness of Breath 07/17/18 08:15 07/22/18 08:14 Albuterol/ Ipratropium (Albuterol/ Ipratropium) 3 ml Q8HRT HHN 07/17/18 09:00 07/22/18 08:59 07/20/18 07:05 Atorvastatin Calcium (Lipitor) 40 mg BEDTIME GT 07/17/18 21:00 08/16/18 20:59 07/19/18 21:30 Bisacodyl (Dulcolax) 10 mg DAILYPRN PRN RECTAL Constipation 07/17/18 08:15 08/16/18 08:14 Chlorhexidine Gluconate (Lawanda-Hex 2%) 1 applic DAILY@2000 TOPIC 07/17/18 20:00 08/16/18 19:59 07/19/18 20:00 Dextrose/Sodium Chloride 1,000 ml @ 75 mls/hr [id number] IV 07/17/18 08:00 08/16/18 07:59 07/20/18 02:39 Docusate Sodium (Colace) 200 mg TWICE A DAY PRN NG Constipation 07/17/18 10:45 08/16/18 10:44 Guaifenesin (Robitussin) 100 mg Q24H PRN GT For Cough 07/17/18 08:15 08/16/18 08:14 Heparin Sodium (Porcine) (Heparin 5000 units/ml) 5,000 units EVERY 8 HOURS SUBQ 07/17/18 14:00 08/16/18 13:59 07/20/18 06:05 Lansoprazole (Prevacid) 30 mg DAILY GT 07/17/18 09:00 08/16/18 08:59 07/20/18 08:59 Magnesium Oxide (Mag-Ox 400mg) 400 mg DAILY GT 07/17/18 09:00 08/16/18 08:59 07/20/18 08:59 Midodrine (Pro-Amatine) 5 mg THREE TIMES A DAY GT 07/17/18 09:00 08/16/18 08:59 07/20/18 08:59 Piperacillin Sod/ Tazobactam Sod 3.375 gm/Dextrose 110 ml @ 27.5 mls/hr Q8H IVPB 07/17/18 11:00 07/24/18 10:59 07/20/18 03:00 Pyridoxine HCl (Vitamin B6) 100 mg DAILY GT 07/17/18 09:00 08/16/18 08:59 07/20/18 08:59 Sennosides (Senokot) 17.2 mg DAILY PRN GT Constipation 07/17/18 08:15 08/16/18 08:14 Vancomycin HCl (Vanco rx to dose) 1 ea DAILY MISC 07/17/18 09:00 08/16/18 08:59 Vancomycin HCl/ Dextrose 250 ml @ 166.667 mls/hr Q24H IVPB 07/20/18 09:00 07/25/18 08:59 07/20/18 08:59 Vitamin D (Vitamin D) 1,000 intlu DAILY ORAL 07/18/18 09:00 08/17/18 08:59 07/20/18 08:59 Milena Ross MD Jul 20, 2018 11:05
[2018-07-20] MEDS: Vancomycin 1gm in D5W 275ml IVPB SCH (11:21)
[2018-07-20 12:00] VITALS: BP 124/78
--- NOTE | 2018-07-20 12:29 | Internal Med Progress Note ---
Subjective Date of Service: Jul 20, 2018 Physician Name Zeyad Simmons Attending Physician Wilner Suarez MD Current Medications Medications (Trade) Dose Ordered Sig/Becca Route PRN Reason Start Time Stop Time Status Last Admin Dose Admin Acetaminophen (Tylenol) 650 mg Q6H PRN GT Mild Pain/Temp > 100.5 07/17/18 08:45 08/16/18 08:44 Albuterol/ Ipratropium (Albuterol/ Ipratropium) 3 ml Q4H PRN HHN Shortness of Breath 07/17/18 08:15 07/22/18 08:14 Albuterol/ Ipratropium (Albuterol/ Ipratropium) 3 ml Q8HRT HHN 07/17/18 09:00 07/22/18 08:59 07/20/18 07:05 Atorvastatin Calcium (Lipitor) 40 mg BEDTIME GT 07/17/18 21:00 08/16/18 20:59 07/19/18 21:30 Bisacodyl (Dulcolax) 10 mg DAILYPRN PRN RECTAL Constipation 07/17/18 08:15 08/16/18 08:14 Chlorhexidine Gluconate (Lawanda-Hex 2%) 1 applic DAILY@2000 TOPIC 07/17/18 20:00 08/16/18 19:59 07/19/18 20:00 Dextrose/Sodium Chloride 1,000 ml @ 75 mls/hr [id number] IV 07/17/18 08:00 08/16/18 07:59 07/20/18 02:39 Docusate Sodium (Colace) 200 mg TWICE A DAY PRN NG Constipation 07/17/18 10:45 08/16/18 10:44 Guaifenesin (Robitussin) 100 mg Q24H PRN GT For Cough 07/17/18 08:15 08/16/18 08:14 Heparin Sodium (Porcine) (Heparin 5000 units/ml) 5,000 units EVERY 8 HOURS SUBQ 07/17/18 14:00 08/16/18 13:59 07/20/18 06:05 Lansoprazole (Prevacid) 30 mg DAILY GT 07/17/18 09:00 08/16/18 08:59 07/20/18 08:59 Magnesium Oxide (Mag-Ox 400mg) 400 mg DAILY GT 07/17/18 09:00 08/16/18 08:59 07/20/18 08:59 Midodrine (Pro-Amatine) 5 mg THREE TIMES A DAY GT 07/17/18 09:00 08/16/18 08:59 07/20/18 08:59 Piperacillin Sod/ Tazobactam Sod 3.375 gm/Dextrose 110 ml @ 27.5 mls/hr Q8H IVPB 07/17/18 11:00 07/24/18 10:59 07/20/18 11:21 Potassium Chloride (K-Dur) 40 meq TWICE A DAY ORAL 07/20/18 11:30 07/20/18 18:01 Pyridoxine HCl (Vitamin B6) 100 mg DAILY GT 07/17/18 09:00 08/16/18 08:59 07/20/18 08:59 Sennosides (Senokot) 17.2 mg DAILY PRN GT Constipation 07/17/18 08:15 08/16/18 08:14 Vancomycin HCl (Vanco rx to dose) 1 ea DAILY MISC 07/17/18 09:00 08/16/18 08:59 Vancomycin HCl/ Dextrose 250 ml @ 166.667 mls/hr Q24H IVPB 07/20/18 09:00 07/25/18 08:59 07/20/18 08:59 Vitamin D (Vitamin D) 1,000 intlu DAILY ORAL 07/18/18 09:00 08/17/18 08:59 07/20/18 08:59 Allergies: Coded Allergies: FISH CONTAINING PRODUCTS (Verified Allergy, Unknown, Anaphylaxis, 07/20/18) Spoke to patient's mother SHELLFISH DERIVED (Verified Allergy, Unknown, Anaphylaxis, 07/20/18) Spoke to patient's mother Uncoded Allergies: SEAFOOD (Allergy, Severe, Anaphylaxis, 07/20/18) All Seafood ROS Limited/Unobtainable: Yes Subjective 52 YO M paraplegic with chronic vent dep admitted with Shortness of breath. Now LLL pneumonia and elevated troponin. Cover for Int Med-dr Suarez. DIANNE Objective Last Vital Signs Date Time Temp Pulse Resp B/P (MAP) Pulse Ox O2 Delivery O2 Flow Rate FiO2 07/20/18 12:00 97.3 98 16 124/78 (93) 100 07/20/18 12:00 30 07/20/18 12:00 Mechanical Ventilator Laboratory Tests Test 07/20/18 00:40 07/20/18 04:00 Vancomycin Level Trough 26.6 ug/mL (5.0-12.0) H White Blood Count 11.0 K/UL (4.8-10.8) H Red Blood Count 3.49 M/UL (4.70-6.10) L Hemoglobin 10.2 G/DL (14.2-18.0) L Hematocrit 30.7 % (42.0-52.0) L Mean Corpuscular Volume 88 FL (80-99) Mean Corpuscular Hemoglobin 29.3 PG (27.0-31.0) Mean Corpuscular Hemoglobin Concent 33.3 G/DL (32.0-36.0) Red Cell Distribution Width 14.2 % (11.6-14.8) Platelet Count 319 K/UL (150-450) Mean Platelet Volume 5.0 FL (6.5-10.1) L Neutrophils (%) (Auto) 66.5 % (45.0-75.0) Lymphocytes (%) (Auto) 22.3 % (20.0-45.0) Monocytes (%) (Auto) 4.7 % (1.0-10.0) Eosinophils (%) (Auto) 6.0 % (0.0-3.0) H Basophils (%) (Auto) 0.5 % (0.0-2.0) Sodium Level 142 MMOL/L (136-145) Potassium Level 2.7 MMOL/L (3.5-5.1) *L Chloride Level 103 MMOL/L (98-107) Carbon Dioxide Level 30 MMOL/L (21-32) Anion Gap 9 mmol/L (5-15) Blood Urea Nitrogen 12 mg/dL (7-18) Creatinine 0.4 MG/DL (0.55-1.30) L Estimat Glomerular Filtration Rate > 60 mL/min (>60) Glucose Level 125 MG/DL (74-106) H Calcium Level 9.3 MG/DL (8.5-10.1) Phosphorus Level 3.1 MG/DL (2.5-4.9) Magnesium Level 2.3 MG/DL (1.8-2.4) Total Bilirubin 0.5 MG/DL (0.2-1.0) Aspartate Amino Transf (AST/SGOT) 34 U/L (15-37) Alanine Aminotransferase (ALT/SGPT) 88 U/L (12-78) H Alkaline Phosphatase 121 U/L (46-116) H Total Protein 7.5 G/DL (6.4-8.2) Albumin 3.2 G/DL (3.4-5.0) L Globulin 4.3 g/dL Albumin/Globulin Ratio 0.7 (1.0-2.7) L Intake and Output 07/19/18 07/20/18 18:59 06:59 Intake Total 1665.500 ml 1842.5 ml Output Total 250 ml 750 ml Balance 1415.500 ml 1092.5 ml Intake Free Water 200 ml 150 ml IV Total 1115.500 ml 1092.5 ml Tube Feeding 350 ml 600 ml Output Urine Total 250 ml 750 ml # Bowel Movements 3 Objective GENERAL: The patient is well-developed, well-nourished male, who is intubated. HEENT: Eyes, pupils equal and responsive to light and accommodation. Extraocular movements are intact. NECK: Tracheosotmy; Supple without lymphadenopathy. CHEST: Mech vent; Decreased breath sounds, left lower lobe. Otherwise, without wheezes or rales. CARDIOVASCULAR: Tachycardic, regular rhythm. S1 and S2 are normal without murmurs, rubs, gallops. ABDOMEN: Soft, nontender, and nondistended. Positive bowel sounds. No evidence of hepatosplenomegaly. Currently, no rebound or guarding noted. NEUROLOGICAL: The patient is paraplegic. Cranial nerves II through XII are grossly intact without focal deficits. Assessment/Plan Problem List: (1) Hypertension (2) Dysphagia Assessment & Plan: On G-tube feeds (3) Healthcare-associated pneumonia Assessment & Plan: Continue zosyn and vanco per pulmonary (4) Acute on chronic respiratory failure Assessment & Plan: Chronic vent dep-see pulmonary note. (5) Elevated troponin Assessment & Plan: see cardiology note. (6) Quadriplegia (7) Feeding by G-tube (8) NSTEMI (non-ST elevated myocardial infarction) Assessment & Plan: See cardiology note (9) Vegetative state Status: not improved Zeyad Simmons MD Jul 20, 2018 12:29
[2018-07-20 16:00] VITALS: BP 112/77
--- NOTE | 2018-07-20 16:40 | NUR ---
CASE MANAGEMENT: REVIEW SI: SEPSIS T 97.2 HR 107 RR 11 BP 112/77 SAT 100% MECH VENT FIO2 30 WBC 11.0 H/H 10.2/30.7 K 2.7 IS: VANCO IV Q12HR MAG OX 400MG PO QD D5 1/2 NS IVF @ 75ML/HR K-DUR PO BID STEP DOWN UNIT STATUS DCP: PATIENT IS FROM [facility]
--- NOTE | 2018-07-20 16:43 | Cardiac Electrophysiology PN ---
Assessment/Plan Assessment/Plan 1. Troponin leak. The levels are flat. The patient is nonverbal. Likely due to dehydration. Echo EF 55% 2. Ventilator-dependent respiratory failure, status post tracheostomy. 3. Dysphagia, status post percutaneous endoscopic gastrostomy placement. 4. Hypokalemia. 5. Azotemia.On iv fluid 6. Encephalopathy Subjective Subjective No new events. On the vent. In SR Objective Last 24 Hour Vital Signs Date Time Temp Pulse Resp B/P (MAP) Pulse Ox O2 Delivery O2 Flow Rate FiO2 07/20/18 16:00 Mechanical Ventilator 07/20/18 16:00 30 07/20/18 16:00 97.2 97 14 112/77 (89) 100 07/20/18 15:26 95 14 100 Mechanical Ventilator 30 07/20/18 15:21 107 11 30 07/20/18 15:20 107 14 100 Mechanical Ventilator 30 07/20/18 13:10 96 11 30 07/20/18 12:00 97.3 98 16 124/78 (93) 100 07/20/18 12:00 30 07/20/18 12:00 Mechanical Ventilator 07/20/18 11:04 108 13 30 07/20/18 09:04 98 15 30 07/20/18 08:00 30 07/20/18 08:00 97.3 107 14 135/84 (101) 97 07/20/18 08:00 Mechanical Ventilator 07/20/18 08:00 Mechanical Ventilator 07/20/18 08:00 101 07/20/18 07:08 94 10 100 Mechanical Ventilator 30 07/20/18 07:05 96 13 30 07/20/18 07:00 95 13 100 Mechanical Ventilator 30 07/20/18 04:52 99 15 30 07/20/18 04:00 Mechanical Ventilator 07/20/18 04:00 30 07/20/18 04:00 97.7 109 13 123/88 (100) 100 07/20/18 04:00 111 07/20/18 03:05 108 16 30 07/20/18 00:53 94 11 30 07/20/18 00:00 103 07/20/18 00:00 97.2 98 12 123/81 (95) 100 07/20/18 00:00 Mechanical Ventilator 07/19/18 22:59 96 15 99 Mechanical Ventilator 30 07/19/18 22:49 93 12 30 07/19/18 22:49 93 12 99 Mechanical Ventilator 30 07/19/18 21:01 91 15 30 07/19/18 20:00 30 07/19/18 20:00 98.1 94 12 146/84 (104) 100 07/19/18 20:00 93 07/19/18 20:00 Mechanical Ventilator 07/19/18 19:15 101 13 30 07/19/18 17:12 100 12 30 Intake and Output 07/19/18 07/20/18 19:00 07:00 Intake Total 1675.500 ml 1792.5 ml Output Total 250 ml 750 ml Balance 1425.500 ml 1042.5 ml Intake Free Water 200 ml 150 ml IV Total 1115.500 ml 1092.5 ml Tube Feeding 360 ml 550 ml Output Urine Total 250 ml 750 ml # Bowel Movements 3 Laboratory Tests Test 07/20/18 00:40 07/20/18 04:00 Vancomycin Level Trough 26.6 ug/mL (5.0-12.0) H White Blood Count 11.0 K/UL (4.8-10.8) H Red Blood Count 3.49 M/UL (4.70-6.10) L Hemoglobin 10.2 G/DL (14.2-18.0) L Hematocrit 30.7 % (42.0-52.0) L Mean Corpuscular Volume 88 FL (80-99) Mean Corpuscular Hemoglobin 29.3 PG (27.0-31.0) Mean Corpuscular Hemoglobin Concent 33.3 G/DL (32.0-36.0) Red Cell Distribution Width 14.2 % (11.6-14.8) Platelet Count 319 K/UL (150-450) Mean Platelet Volume 5.0 FL (6.5-10.1) L Neutrophils (%) (Auto) 66.5 % (45.0-75.0) Lymphocytes (%) (Auto) 22.3 % (20.0-45.0) Monocytes (%) (Auto) 4.7 % (1.0-10.0) Eosinophils (%) (Auto) 6.0 % (0.0-3.0) H Basophils (%) (Auto) 0.5 % (0.0-2.0) Sodium Level 142 MMOL/L (136-145) Potassium Level 2.7 MMOL/L (3.5-5.1) *L Chloride Level 103 MMOL/L (98-107) Carbon Dioxide Level 30 MMOL/L (21-32) Anion Gap 9 mmol/L (5-15) Blood Urea Nitrogen 12 mg/dL (7-18) Creatinine 0.4 MG/DL (0.55-1.30) L Estimat Glomerular Filtration Rate > 60 mL/min (>60) Glucose Level 125 MG/DL (74-106) H Calcium Level 9.3 MG/DL (8.5-10.1) Phosphorus Level 3.1 MG/DL (2.5-4.9) Magnesium Level 2.3 MG/DL (1.8-2.4) Total Bilirubin 0.5 MG/DL (0.2-1.0) Aspartate Amino Transf (AST/SGOT) 34 U/L (15-37) Alanine Aminotransferase (ALT/SGPT) 88 U/L (12-78) H Alkaline Phosphatase 121 U/L (46-116) H Total Protein 7.5 G/DL (6.4-8.2) Albumin 3.2 G/DL (3.4-5.0) L Globulin 4.3 g/dL Albumin/Globulin Ratio 0.7 (1.0-2.7) L Objective HEAD AND NECK: No JVD. Status post tracheostomy. LUNGS: Coarse rhonchi. CARDIOVASCULAR: Regular S1 and S2 with no gallop. ABDOMEN: Status post PEG. EXTREMITIES: With no pitting edema. NEUROLOGIC: He is quadriplegic and nonverbal. Wale Severino MD Jul 20, 2018 16:43
--- NOTE | 2018-07-20 19:30 | NUR ---
NURSE NOTES: Received pt is sleeping on the bed and obtunded. Non-verbal. Trach to Vent dependent setting with AC: 10, T: 550, P: 5, FiO2 ; 30% and SaO2 100% noted. Given tracheal and oral suction and provided oral care. No sign of acute distress noted. On condom cath and placed and yellowish urine urinated. On Tele monitor with SR with HR ; 100's. On PICC line on Rt. upper arm and dressing is clean and dry. In G-tube feeding as ordered and tolerated well. No residual noted. Changed position. Placed fall precaution. Will continue to care plan.
[2018-07-20 20:00] VITALS: BP 125/76
[2018-07-20] MEDS: Dyna-Hex 2% Top Sol 2oz TOPIC SCH (20:02)
[2018-07-20] MEDS: Atorvastatin 20mg tab GT SCH (20:59)
[2018-07-21] VITALS: BP 140/72
[2018-07-21] MEDS: Piperacillin/Tazobactam 3.375 GM in D5W 110 ML IVPB SCH ×3 (03:31→18:15)
[2018-07-21 04:00] VITALS: BP 127/73
[2018-07-21] MEDS: D5 1/2NS 1,000 ML IV SCH ×2 (06:23→18:15)
[2018-07-21] MEDS: Heparin 5000 units/ml inj SUBQ SCH ×3 (06:25→23:01)
[2018-07-21] MEDS: Albuterol/Ipratropium 3ml neb HHN SCH ×3 (07:00→23:20)
--- NOTE | 2018-07-21 07:03 | NUR ---
RESPIRATORY NOTE: received pt on current vent settings, trached with portex 8, cuffed. ambu bag at bedside with vent plugged into red outlet. no resp distress noted at this time. will cont to monitor.
[2018-07-21 07:29] LABS: ALANINE AMINOTRANSFERASE 67 U/L (12-78); ALBUMIN 2.7 G/DL (3.4-5.0); ALBUMIN/GLOBULIN RATIO 0.6 (1.0-2.7); ALKALINE PHOSPHATASE 123 U/L (46-116); ANION GAP 7 mmol/L (5-15); ASPARTATE AMINO TRANSFERASE 27 U/L (15-37); BILIRUBIN,TOTAL 0.2 MG/DL (0.2-1.0); BLOOD UREA NITROGEN 12 mg/dL (7-18); CALCIUM 8.8 MG/DL (8.5-10.1); CARBON DIOXIDE 29 MMOL/L (21-32); CHLORIDE 105 MMOL/L (98-107); CREATININE 0.4 MG/DL (0.55-1.30); PHOSPHORUS 2.1 MG/DL (2.5-4.9); POTASSIUM 4.6 MMOL/L (3.5-5.1); SODIUM 141 MMOL/L (136-145)
--- NOTE | 2018-07-21 07:35 | NUR ---
NURSE NOTES: Report received from MELECIO Silvestre. Observed patient in bed. Open eyes spontaneously, but non-verbal. On ventilator with previous setting and tolerated well. GT site intact with ongoing feeding. HOB elevated. No residual noted. PICC line intact and patent. Family at bedside. Bed in lowest position. Call light within reach. Will continue to monitor.
[2018-07-21 07:37] LABS: BASOPHILS % (AUTO) 0.6 % (0.0-2.0); EOSINOPHILS % (AUTO) 6.3 % (0.0-3.0); HEMATOCRIT 28.8 % (42.0-52.0); HEMOGLOBIN 9.3 G/DL (14.2-18.0); MEAN CORPUSCULAR VOLUME 89 FL (80-99); NEUTROPHILS % (AUTO) 62.2 % (45.0-75.0); PLATELET COUNT 299 K/UL (150-450); RED BLOOD COUNT 3.24 M/UL (4.70-6.10); RED CELL DISTRIBUTION WIDTH 14.6 % (11.6-14.8); WHITE BLOOD COUNT 8.7 K/UL (4.8-10.8)
--- NOTE | 2018-07-21 07:40 | NUR ---
HAND-OFF: Report given to MELECIO Mccoy. Pt is sleeping on the bed and family at bedside. Tolerated well with current Vent setting. No sign of acute distress noted.
[2018-07-21 08:00] VITALS: BP 125/76
[2018-07-21] MEDS: Pyridoxine 50mg tab GT SCH (09:07)
[2018-07-21] MEDS: Vitamin D 1000 IU Tab ORAL SCH (09:07)
[2018-07-21] MEDS: Vancomycin 1250mg/D5W 250ml IVPB SCH (09:08)
[2018-07-21] MEDS: Magnesium Oxide 400mg tab GT SCH (09:08)
--- NOTE | 2018-07-21 09:18 | Infectious Diseases Prog Note ---
Assessment/Plan Assessment/Plan 52 yo male with PMHx of Vent dependence, Dysphagia s/p PEG, Parapelgia, and HTN who was sent to the ED on 07/16/18 from his [facility] for fever and increased respiratory disteress. Sepsis - resolved PNA vs UTI UA (+) 07/16 Urine Cx 07/17 - Multiple organisms not worked up 07/16/18 Blood Cx (NGTD) CXR 07/16 - LLL Collapse Vent dependent sp trach Dysphagia s/p PEG Parapelgia HTN Lumbar laminectomy. Plan - Continue Vancomcyin #5/ and zosyn #5/7 (End date 07/23/18) - Monitor CBC and Temps Thank you for this consult. We will continue to follow the patient during this hospitalization. Subjective Allergies: Coded Allergies: FISH CONTAINING PRODUCTS (Verified Allergy, Unknown, Anaphylaxis, 07/20/18) Spoke to patient's mother SHELLFISH DERIVED (Verified Allergy, Unknown, Anaphylaxis, 07/20/18) Spoke to patient's mother Subjective Patient afebrile No Leukocytosis Not verbal Objective Vital Signs Last 24 Hour Vital Signs Date Time Temp Pulse Resp B/P (MAP) Pulse Ox O2 Delivery O2 Flow Rate FiO2 07/21/18 08:58 127 13 30 07/21/18 08:00 30 07/21/18 08:00 Mechanical Ventilator 07/21/18 07:08 124 10 100 Mechanical Ventilator 30 07/21/18 07:02 124 11 100 Mechanical Ventilator 30 07/21/18 07:00 124 11 30 07/21/18 04:53 108 13 30 07/21/18 04:00 Mechanical Ventilator 07/21/18 04:00 30 07/21/18 04:00 99 07/21/18 04:00 98.1 104 18 127/73 (91) 100 07/21/18 03:10 101 12 30 07/21/18 01:06 109 12 30 07/21/18 00:00 Mechanical Ventilator 07/21/18 00:00 104 07/21/18 00:00 98.1 104 18 140/72 (94) 100 07/20/18 23:03 98 15 100 Mechanical Ventilator 30 07/20/18 22:55 114 11 100 Mechanical Ventilator 30 07/20/18 22:53 98 21 30 07/20/18 20:53 102 19 30 07/20/18 20:00 Mechanical Ventilator 07/20/18 20:00 98 07/20/18 20:00 97.9 100 16 125/76 (92) 100 07/20/18 20:00 30 07/20/18 18:36 101 17 30 07/20/18 17:10 104 16 30 07/20/18 16:00 Mechanical Ventilator 07/20/18 16:00 30 07/20/18 16:00 97.2 97 14 112/77 (89) 100 07/20/18 15:31 95 07/20/18 15:26 95 14 100 Mechanical Ventilator 30 07/20/18 15:21 107 11 30 07/20/18 15:20 107 14 100 Mechanical Ventilator 30 07/20/18 13:10 96 11 30 07/20/18 12:00 97.3 98 16 124/78 (93) 100 07/20/18 12:00 30 07/20/18 12:00 104 07/20/18 12:00 Mechanical Ventilator 07/20/18 11:04 108 13 30 Height (Feet): 5 Height (Inches): 7.00 Weight (Pounds): 157 Objective Gen: Satting well on vent 30% O2 HEENT: NCAT, MMM, PERRL LUNGS: Coarse Left side decreased, No W CARDS: RRR, S1, S2, No M/R/G, ABD: Soft, NT, ND, + BS, PEG (No E/P) Laboratory Tests Test 07/21/18 04:00 White Blood Count 8.7 K/UL (4.8-10.8) Red Blood Count 3.24 M/UL (4.70-6.10) L Hemoglobin 9.3 G/DL (14.2-18.0) L Hematocrit 28.8 % (42.0-52.0) L Mean Corpuscular Volume 89 FL (80-99) Mean Corpuscular Hemoglobin 28.8 PG (27.0-31.0) Mean Corpuscular Hemoglobin Concent 32.4 G/DL (32.0-36.0) Red Cell Distribution Width 14.6 % (11.6-14.8) Platelet Count 299 K/UL (150-450) Mean Platelet Volume 5.5 FL (6.5-10.1) L Neutrophils (%) (Auto) 62.2 % (45.0-75.0) Lymphocytes (%) (Auto) 25.0 % (20.0-45.0) Monocytes (%) (Auto) 6.0 % (1.0-10.0) Eosinophils (%) (Auto) 6.3 % (0.0-3.0) H Basophils (%) (Auto) 0.6 % (0.0-2.0) Sodium Level 141 MMOL/L (136-145) Potassium Level 4.6 MMOL/L (3.5-5.1) # Chloride Level 105 MMOL/L (98-107) Carbon Dioxide Level 29 MMOL/L (21-32) Anion Gap 7 mmol/L (5-15) Blood Urea Nitrogen 12 mg/dL (7-18) Creatinine 0.4 MG/DL (0.55-1.30) L Estimat Glomerular Filtration Rate > 60 mL/min (>60) Glucose Level 161 MG/DL (74-106) H Calcium Level 8.8 MG/DL (8.5-10.1) Phosphorus Level 2.1 MG/DL (2.5-4.9) L Magnesium Level 2.1 MG/DL (1.8-2.4) Total Bilirubin 0.2 MG/DL (0.2-1.0) Aspartate Amino Transf (AST/SGOT) 27 U/L (15-37) Alanine Aminotransferase (ALT/SGPT) 67 U/L (12-78) Alkaline Phosphatase 123 U/L (46-116) H Total Protein 7.0 G/DL (6.4-8.2) Albumin 2.7 G/DL (3.4-5.0) L Globulin 4.3 g/dL Albumin/Globulin Ratio 0.6 (1.0-2.7) L Current Medications Medications (Trade) Dose Ordered Sig/Becca Route PRN Reason Start Time Stop Time Status Last Admin Dose Admin Acetaminophen (Tylenol) 650 mg Q6H PRN GT Mild Pain/Temp > 100.5 07/17/18 08:45 08/16/18 08:44 Albuterol/ Ipratropium (Albuterol/ Ipratropium) 3 ml Q4H PRN HHN Shortness of Breath 07/17/18 08:15 07/22/18 08:14 Albuterol/ Ipratropium (Albuterol/ Ipratropium) 3 ml Q8HRT HHN 07/17/18 09:00 07/22/18 08:59 07/21/18 07:00 Atorvastatin Calcium (Lipitor) 40 mg BEDTIME GT 07/17/18 21:00 08/16/18 20:59 07/20/18 20:59 Bisacodyl (Dulcolax) 10 mg DAILYPRN PRN RECTAL Constipation 07/17/18 08:15 08/16/18 08:14 Chlorhexidine Gluconate (Lawanda-Hex 2%) 1 applic DAILY@2000 TOPIC 07/17/18 20:00 08/16/18 19:59 07/20/18 20:02 Dextrose/Sodium Chloride 1,000 ml @ 75 mls/hr [id number] IV 07/17/18 08:00 08/16/18 07:59 07/21/18 06:23 Docusate Sodium (Colace) 200 mg TWICE A DAY PRN NG Constipation 07/17/18 10:45 08/16/18 10:44 Guaifenesin (Robitussin) 100 mg Q24H PRN GT For Cough 07/17/18 08:15 08/16/18 08:14 Heparin Sodium (Porcine) (Heparin 5000 units/ml) 5,000 units EVERY 8 HOURS SUBQ 07/17/18 14:00 08/16/18 13:59 07/21/18 06:25 Lansoprazole (Prevacid) 30 mg DAILY GT 07/17/18 09:00 08/16/18 08:59 07/21/18 09:08 Magnesium Oxide (Mag-Ox 400mg) 400 mg DAILY GT 07/17/18 09:00 08/16/18 08:59 07/21/18 09:08 Midodrine (Pro-Amatine) 5 mg THREE TIMES A DAY GT 07/17/18 09:00 08/16/18 08:59 07/21/18 09:07 Piperacillin Sod/ Tazobactam Sod 3.375 gm/Dextrose 110 ml @ 27.5 mls/hr Q8H IVPB 07/17/18 11:00 07/24/18 10:59 07/21/18 03:31 Pyridoxine HCl (Vitamin B6) 100 mg DAILY GT 07/17/18 09:00 08/16/18 08:59 07/21/18 09:07 Sennosides (Senokot) 17.2 mg DAILY PRN GT Constipation 07/17/18 08:15 08/16/18 08:14 Vancomycin HCl (Vanco rx to dose) 1 ea DAILY MISC 07/17/18 09:00 08/16/18 08:59 Vancomycin HCl/ Dextrose 250 ml @ 166.667 mls/hr Q24H IVPB 07/20/18 09:00 07/25/18 08:59 07/21/18 09:08 Vitamin D (Vitamin D) 1,000 intlu DAILY ORAL 07/18/18 09:00 08/17/18 08:59 07/21/18 09:07 Ganga Tian MD Jul 21, 2018 09:18
--- NOTE | 2018-07-21 10:24 | NUR ---
NURSE NOTES: Informed Dr. Severino regarding sustained HR 120-130'. Dr. Severino said it is sinus tachycardia without no arrhythmia so no new order at this time and pt. is cleared from cardiac stand point.
--- NOTE | 2018-07-21 10:45 | Pulmonology Progress Note ---
Assessment/Plan Problems: (1) Acute on chronic respiratory failure (2) Healthcare-associated pneumonia (3) Sepsis (4) Feeding by G-tube (5) Quadriplegia (6) Vegetative state Respiratory: monitor respiratory rate, adjust FIO2, CXR Cardiac: continue to monitor HR/BP Renal: F/U I&O, check electrolytes Infectious Disease: check cultures Gastrointestinal: continue feedings/current rate Endocrine: monitor blood sugar Hematologic: monitor H/H, transfuse if hgb<8.5 Neurologic: PRN Morphine, keep patient comfortable Affect: PRN ativan Prophylaxis: Protonix, Heparin Notes Reviewed: recreation engineer, renal Discussed with: nurses, consultants, case work aide Subjective ROS Limited/Unobtainable: Yes Constitutional: Reports: no symptoms HEENT: Repors: no symptoms Respiratory: Reports: no symptoms Allergies: Coded Allergies: FISH CONTAINING PRODUCTS (Verified Allergy, Unknown, Anaphylaxis, 07/20/18) Spoke to patient's mother SHELLFISH DERIVED (Verified Allergy, Unknown, Anaphylaxis, 07/20/18) Spoke to patient's mother Objective Last 24 Hour Vital Signs Date Time Temp Pulse Resp B/P (MAP) Pulse Ox O2 Delivery O2 Flow Rate FiO2 07/21/18 08:58 127 13 30 07/21/18 08:00 30 07/21/18 08:00 97.7 124 12 125/76 (92) 99 07/21/18 08:00 128 07/21/18 08:00 Mechanical Ventilator 07/21/18 07:08 124 10 100 Mechanical Ventilator 30 07/21/18 07:02 124 11 100 Mechanical Ventilator 30 07/21/18 07:00 124 11 30 07/21/18 04:53 108 13 30 07/21/18 04:00 Mechanical Ventilator 07/21/18 04:00 30 07/21/18 04:00 99 07/21/18 04:00 98.1 104 18 127/73 (91) 100 07/21/18 03:10 101 12 30 07/21/18 01:06 109 12 30 07/21/18 00:00 Mechanical Ventilator 07/21/18 00:00 104 07/21/18 00:00 98.1 104 18 140/72 (94) 100 07/20/18 23:03 98 15 100 Mechanical Ventilator 30 07/20/18 22:55 114 11 100 Mechanical Ventilator 30 07/20/18 22:53 98 21 30 07/20/18 20:53 102 19 30 07/20/18 20:00 Mechanical Ventilator 07/20/18 20:00 98 07/20/18 20:00 97.9 100 16 125/76 (92) 100 07/20/18 20:00 30 07/20/18 18:36 101 17 30 07/20/18 17:10 104 16 30 07/20/18 16:00 Mechanical Ventilator 07/20/18 16:00 30 07/20/18 16:00 97.2 97 14 112/77 (89) 100 07/20/18 15:31 95 07/20/18 15:26 95 14 100 Mechanical Ventilator 30 07/20/18 15:21 107 11 30 07/20/18 15:20 107 14 100 Mechanical Ventilator 30 07/20/18 13:10 96 11 30 07/20/18 12:00 97.3 98 16 124/78 (93) 100 07/20/18 12:00 30 07/20/18 12:00 104 07/20/18 12:00 Mechanical Ventilator 07/20/18 11:04 108 13 30 Intake and Output 07/20/18 07/21/18 19:00 07:00 Intake Total 1152.5 ml 1652.5 ml Output Total 1200 ml 1100 ml Balance -47.5 ml 552.5 ml IV Total 1052.5 ml 1052.5 ml Tube Feeding 100 ml 600 ml Output Urine Total 1200 ml 1100 ml # Bowel Movements 2 General Appearance: WD/WN HEENT: normocephalic, atraumatic, status post trach Respiratory/Chest: chest wall non-tender, lungs clear Cardiovascular: normal peripheral pulses, normal rate Abdomen: normal bowel sounds, soft, non tender, no scars Extremities: no cyanosis Skin: no lesions Laboratory Tests 07/21/18 04:00: White Blood Count 8.7, Red Blood Count 3.24L, Hemoglobin 9.3L, Hematocrit 28.8L , Mean Corpuscular Volume 89, Mean Corpuscular Hemoglobin 28.8, Mean Corpuscular Hemoglobin Concent 32.4, Red Cell Distribution Width 14.6, Platelet Count 299, Mean Platelet Volume 5.5L, Neutrophils (%) (Auto) 62.2, Lymphocytes ( %) (Auto) 25.0, Monocytes (%) (Auto) 6.0, Eosinophils (%) (Auto) 6.3H, Basophils (%) (Auto) 0.6, Sodium Level 141, Potassium Level 4.6#, Chloride Level 105, Carbon Dioxide Level 29, Anion Gap 7, Blood Urea Nitrogen 12, Creatinine 0.4L, Estimat Glomerular Filtration Rate > 60, Glucose Level 161H, Calcium Level 8.8, Phosphorus Level 2.1L, Magnesium Level 2.1, Total Bilirubin 0.2, Aspartate Amino Transf (AST/SGOT) 27, Alanine Aminotransferase (ALT/SGPT) 67, Alkaline Phosphatase 123H, Total Protein 7.0, Albumin 2.7L, Globulin 4.3, Albumin/Globulin Ratio 0.6L Current Medications Medications (Trade) Dose Ordered Sig/Becca Route PRN Reason Start Time Stop Time Status Last Admin Dose Admin Acetaminophen (Tylenol) 650 mg Q6H PRN GT Mild Pain/Temp > 100.5 07/17/18 08:45 08/16/18 08:44 Albuterol/ Ipratropium (Albuterol/ Ipratropium) 3 ml Q4H PRN HHN Shortness of Breath 07/17/18 08:15 07/22/18 08:14 Albuterol/ Ipratropium (Albuterol/ Ipratropium) 3 ml Q8HRT HHN 07/17/18 09:00 07/22/18 08:59 07/21/18 07:00 Atorvastatin Calcium (Lipitor) 40 mg BEDTIME GT 07/17/18 21:00 08/16/18 20:59 07/20/18 20:59 Bisacodyl (Dulcolax) 10 mg DAILYPRN PRN RECTAL Constipation 07/17/18 08:15 08/16/18 08:14 Chlorhexidine Gluconate (Lawanda-Hex 2%) 1 applic DAILY@2000 TOPIC 07/17/18 20:00 08/16/18 19:59 07/20/18 20:02 Dextrose/Sodium Chloride 1,000 ml @ 75 mls/hr [id number] IV 07/17/18 08:00 08/16/18 07:59 07/21/18 06:23 Docusate Sodium (Colace) 200 mg TWICE A DAY PRN NG Constipation 07/17/18 10:45 08/16/18 10:44 Guaifenesin (Robitussin) 100 mg Q24H PRN GT For Cough 07/17/18 08:15 08/16/18 08:14 Heparin Sodium (Porcine) (Heparin 5000 units/ml) 5,000 units EVERY 8 HOURS SUBQ 07/17/18 14:00 08/16/18 13:59 07/21/18 06:25 Lansoprazole (Prevacid) 30 mg DAILY GT 07/17/18 09:00 08/16/18 08:59 07/21/18 09:08 Magnesium Oxide (Mag-Ox 400mg) 400 mg DAILY GT 07/17/18 09:00 08/16/18 08:59 07/21/18 09:08 Midodrine (Pro-Amatine) 5 mg THREE TIMES A DAY GT 07/17/18 09:00 08/16/18 08:59 07/21/18 09:07 Piperacillin Sod/ Tazobactam Sod 3.375 gm/Dextrose 110 ml @ 27.5 mls/hr Q8H IVPB 07/17/18 11:00 07/24/18 10:59 07/21/18 03:31 Pyridoxine HCl (Vitamin B6) 100 mg DAILY GT 07/17/18 09:00 08/16/18 08:59 07/21/18 09:07 Sennosides (Senokot) 17.2 mg DAILY PRN GT Constipation 07/17/18 08:15 08/16/18 08:14 Vancomycin HCl (Vanco rx to dose) 1 ea DAILY MISC 07/17/18 09:00 08/16/18 08:59 Vancomycin HCl/ Dextrose 250 ml @ 166.667 mls/hr Q24H IVPB 07/20/18 09:00 07/25/18 08:59 07/21/18 09:08 Vitamin D (Vitamin D) 1,000 intlu DAILY ORAL 07/18/18 09:00 08/17/18 08:59 07/21/18 09:07 Milena Ross MD Jul 21, 2018 10:45
--- NOTE | 2018-07-21 10:48 | NUR ---
RD ASSESSMENT & RECOMMENDATIONS SEE CARE ACTIVITY FOR COMPLETE ASSESSMENT DAILY ESTIMATED NEEDS: Needs based on Critical care, paraplegia, TF [employer] 72.7kg 20-25 kcals/kg 5206-5638 total kcals 1.2-1.5 g protein/kg 87-109 g total protein 20-30 mL/kg 3181-0655 total fluid mLs NUTRITION DIAGNOSIS: Swallowing difficulty r/t respiratory status as evidenced by pt w/ h/o spinal cord injury, paraplegia, trach dep and PEG dep. CURRENT TF: Glucerna 1.5 @50ml/hr x20 hrs ENTERAL NUTRITION RECOMMENDATIONS: Osmolite 1.5 @50ml/hr x22 hrs + Prosource BID to provide 1100ml, 1650 kcal, 69g + 22g prot, 838ml free H2O - Rec to INCREASE TF RUN TIME TO 22 HRS/DAY - Add PROSOURCE 1 pack BID to better meet est prot needs - Flush per MD/ HOB over 30 degrees ADDITIONAL RECOMMENDATIONS: 1) Obtain weekly Calibrated bed scale wts 2) Check lytes daily/ replete as needed (Low K- 2.7, Phos 2.1) 3) Add PROSOURCE BID via peg
[2018-07-21 12:00] VITALS: BP 143/82
[2018-07-21] MEDS ORDERED: Tubing IV Secondary IV ONE (14:55)
[2018-07-21] MEDS ORDERED: D5 1/2NS 1000ml IV ONE ×2 (14:55→17:09)
[2018-07-21] MEDS ORDERED: NS 275ml ONE (14:55)
[2018-07-21 16:00] VITALS: BP 147/81
--- NOTE | 2018-07-21 16:23 | Cardiac Electrophysiology PN ---
Assessment/Plan Assessment/Plan 1. Troponin leak. The levels are flat. The patient is nonverbal. Likely due to dehydration. Echo EF 55% 2. Ventilator-dependent respiratory failure, status post tracheostomy. 3. Dysphagia, status post percutaneous endoscopic gastrostomy placement. 4. Hypokalemia. 5. Azotemia.On iv fluid 6. Encephalopathy Subjective Subjective No new events. Mother at bedside. On the vent. In SR Objective Last 24 Hour Vital Signs Date Time Temp Pulse Resp B/P (MAP) Pulse Ox O2 Delivery O2 Flow Rate FiO2 07/21/18 16:00 30 07/21/18 16:00 Mechanical Ventilator 07/21/18 16:00 103 13 30 07/21/18 15:56 105 10 98 Mechanical Ventilator 30 07/21/18 15:43 107 11 99 Mechanical Ventilator 30 07/21/18 12:48 121 13 30 07/21/18 12:00 Mechanical Ventilator 07/21/18 12:00 97.9 117 14 143/82 (102) 98 07/21/18 12:00 111 07/21/18 11:54 30 07/21/18 10:52 112 15 30 07/21/18 08:58 127 13 30 07/21/18 08:00 30 07/21/18 08:00 97.7 124 12 125/76 (92) 99 07/21/18 08:00 128 07/21/18 08:00 Mechanical Ventilator 07/21/18 07:08 124 10 100 Mechanical Ventilator 30 07/21/18 07:02 124 11 100 Mechanical Ventilator 30 07/21/18 07:00 124 11 30 07/21/18 04:53 108 13 30 07/21/18 04:00 Mechanical Ventilator 07/21/18 04:00 30 07/21/18 04:00 99 07/21/18 04:00 98.1 104 18 127/73 (91) 100 07/21/18 03:10 101 12 30 07/21/18 01:06 109 12 30 07/21/18 00:00 Mechanical Ventilator 07/21/18 00:00 104 07/21/18 00:00 98.1 104 18 140/72 (94) 100 07/20/18 23:03 98 15 100 Mechanical Ventilator 30 07/20/18 22:55 114 11 100 Mechanical Ventilator 30 07/20/18 22:53 98 21 30 07/20/18 20:53 102 19 30 07/20/18 20:00 Mechanical Ventilator 07/20/18 20:00 98 07/20/18 20:00 97.9 100 16 125/76 (92) 100 07/20/18 20:00 30 07/20/18 18:36 101 17 30 07/20/18 17:10 104 16 30 Intake and Output 07/20/18 07/21/18 18:59 06:59 Intake Total 1130.0 ml 1692.5 ml Output Total 1200 ml 1100 ml Balance -70.0 ml 592.5 ml IV Total 1080.0 ml 1092.5 ml Tube Feeding 50 ml 600 ml Output Urine Total 1200 ml 1100 ml # Bowel Movements 2 Laboratory Tests Test 07/21/18 04:00 White Blood Count 8.7 K/UL (4.8-10.8) Red Blood Count 3.24 M/UL (4.70-6.10) L Hemoglobin 9.3 G/DL (14.2-18.0) L Hematocrit 28.8 % (42.0-52.0) L Mean Corpuscular Volume 89 FL (80-99) Mean Corpuscular Hemoglobin 28.8 PG (27.0-31.0) Mean Corpuscular Hemoglobin Concent 32.4 G/DL (32.0-36.0) Red Cell Distribution Width 14.6 % (11.6-14.8) Platelet Count 299 K/UL (150-450) Mean Platelet Volume 5.5 FL (6.5-10.1) L Neutrophils (%) (Auto) 62.2 % (45.0-75.0) Lymphocytes (%) (Auto) 25.0 % (20.0-45.0) Monocytes (%) (Auto) 6.0 % (1.0-10.0) Eosinophils (%) (Auto) 6.3 % (0.0-3.0) H Basophils (%) (Auto) 0.6 % (0.0-2.0) Sodium Level 141 MMOL/L (136-145) Potassium Level 4.6 MMOL/L (3.5-5.1) # Chloride Level 105 MMOL/L (98-107) Carbon Dioxide Level 29 MMOL/L (21-32) Anion Gap 7 mmol/L (5-15) Blood Urea Nitrogen 12 mg/dL (7-18) Creatinine 0.4 MG/DL (0.55-1.30) L Estimat Glomerular Filtration Rate > 60 mL/min (>60) Glucose Level 161 MG/DL (74-106) H Calcium Level 8.8 MG/DL (8.5-10.1) Phosphorus Level 2.1 MG/DL (2.5-4.9) L Magnesium Level 2.1 MG/DL (1.8-2.4) Total Bilirubin 0.2 MG/DL (0.2-1.0) Aspartate Amino Transf (AST/SGOT) 27 U/L (15-37) Alanine Aminotransferase (ALT/SGPT) 67 U/L (12-78) Alkaline Phosphatase 123 U/L (46-116) H Total Protein 7.0 G/DL (6.4-8.2) Albumin 2.7 G/DL (3.4-5.0) L Globulin 4.3 g/dL Albumin/Globulin Ratio 0.6 (1.0-2.7) L Objective HEAD AND NECK: No JVD. Status post tracheostomy. LUNGS: Coarse rhonchi. CARDIOVASCULAR: Regular S1 and S2 with no gallop. ABDOMEN: Status post PEG. EXTREMITIES: With no pitting edema. NEUROLOGIC: He is quadriplegic and nonverbal. Wale Severino MD Jul 21, 2018 16:23
--- NOTE | 2018-07-21 17:51 | Internal Med Progress Note ---
Subjective Date of Service: Jul 21, 2018 Physician Name Zeyad Simmons Attending Physician Wilner Suarez MD Current Medications Medications (Trade) Dose Ordered Sig/Becca Route PRN Reason Start Time Stop Time Status Last Admin Dose Admin Acetaminophen (Tylenol) 650 mg Q6H PRN GT Mild Pain/Temp > 100.5 07/17/18 08:45 08/16/18 08:44 Albuterol/ Ipratropium (Albuterol/ Ipratropium) 3 ml Q4H PRN HHN Shortness of Breath 07/17/18 08:15 07/22/18 08:14 Albuterol/ Ipratropium (Albuterol/ Ipratropium) 3 ml Q8HRT HHN 07/17/18 09:00 07/22/18 08:59 07/21/18 15:42 Atorvastatin Calcium (Lipitor) 40 mg BEDTIME GT 07/17/18 21:00 08/16/18 20:59 07/20/18 20:59 Bisacodyl (Dulcolax) 10 mg DAILYPRN PRN RECTAL Constipation 07/17/18 08:15 08/16/18 08:14 Chlorhexidine Gluconate (Lawanda-Hex 2%) 1 applic DAILY@2000 TOPIC 07/17/18 20:00 08/16/18 19:59 07/20/18 20:02 Dextrose/Sodium Chloride 1,000 ml @ 75 mls/hr [id number] IV 07/17/18 08:00 08/16/18 07:59 07/21/18 06:23 Docusate Sodium (Colace) 200 mg TWICE A DAY PRN NG Constipation 07/17/18 10:45 08/16/18 10:44 Guaifenesin (Robitussin) 100 mg Q24H PRN GT For Cough 07/17/18 08:15 08/16/18 08:14 Heparin Sodium (Porcine) (Heparin 5000 units/ml) 5,000 units EVERY 8 HOURS SUBQ 07/17/18 14:00 08/16/18 13:59 07/21/18 13:31 Lansoprazole (Prevacid) 30 mg DAILY GT 07/17/18 09:00 08/16/18 08:59 07/21/18 09:08 Magnesium Oxide (Mag-Ox 400mg) 400 mg DAILY GT 07/17/18 09:00 08/16/18 08:59 07/21/18 09:08 Midodrine (Pro-Amatine) 5 mg THREE TIMES A DAY GT 07/17/18 09:00 08/16/18 08:59 07/21/18 09:07 Piperacillin Sod/ Tazobactam Sod 3.375 gm/Dextrose 110 ml @ 27.5 mls/hr Q8H IVPB 07/17/18 11:00 07/24/18 10:59 07/21/18 11:06 Pyridoxine HCl (Vitamin B6) 100 mg DAILY GT 07/17/18 09:00 08/16/18 08:59 07/21/18 09:07 Sennosides (Senokot) 17.2 mg DAILY PRN GT Constipation 07/17/18 08:15 08/16/18 08:14 Vancomycin HCl (Vanco rx to dose) 1 ea DAILY MISC 07/17/18 09:00 08/16/18 08:59 Vancomycin HCl/ Dextrose 250 ml @ 166.667 mls/hr Q24H IVPB 07/20/18 09:00 07/25/18 08:59 07/21/18 09:08 Vitamin D (Vitamin D) 1,000 intlu DAILY ORAL 07/18/18 09:00 08/17/18 08:59 07/21/18 09:07 Allergies: Coded Allergies: FISH CONTAINING PRODUCTS (Verified Allergy, Unknown, Anaphylaxis, 07/20/18) Spoke to patient's mother SHELLFISH DERIVED (Verified Allergy, Unknown, Anaphylaxis, 07/20/18) Spoke to patient's mother ROS Limited/Unobtainable: Yes Subjective 52 YO M paraplegic with chronic vent dep admitted with Shortness of breath. Now LLL pneumonia and elevated troponin. Cover for Int Med-dr Suarez. DIANNE Objective Last Vital Signs Date Time Temp Pulse Resp B/P (MAP) Pulse Ox O2 Delivery O2 Flow Rate FiO2 07/21/18 17:16 109 12 30 07/21/18 16:00 Mechanical Ventilator 07/21/18 16:00 97.9 147/81 (103) 99 Laboratory Tests Test 07/21/18 04:00 White Blood Count 8.7 K/UL (4.8-10.8) Red Blood Count 3.24 M/UL (4.70-6.10) L Hemoglobin 9.3 G/DL (14.2-18.0) L Hematocrit 28.8 % (42.0-52.0) L Mean Corpuscular Volume 89 FL (80-99) Mean Corpuscular Hemoglobin 28.8 PG (27.0-31.0) Mean Corpuscular Hemoglobin Concent 32.4 G/DL (32.0-36.0) Red Cell Distribution Width 14.6 % (11.6-14.8) Platelet Count 299 K/UL (150-450) Mean Platelet Volume 5.5 FL (6.5-10.1) L Neutrophils (%) (Auto) 62.2 % (45.0-75.0) Lymphocytes (%) (Auto) 25.0 % (20.0-45.0) Monocytes (%) (Auto) 6.0 % (1.0-10.0) Eosinophils (%) (Auto) 6.3 % (0.0-3.0) H Basophils (%) (Auto) 0.6 % (0.0-2.0) Sodium Level 141 MMOL/L (136-145) Potassium Level 4.6 MMOL/L (3.5-5.1) # Chloride Level 105 MMOL/L (98-107) Carbon Dioxide Level 29 MMOL/L (21-32) Anion Gap 7 mmol/L (5-15) Blood Urea Nitrogen 12 mg/dL (7-18) Creatinine 0.4 MG/DL (0.55-1.30) L Estimat Glomerular Filtration Rate > 60 mL/min (>60) Glucose Level 161 MG/DL (74-106) H Calcium Level 8.8 MG/DL (8.5-10.1) Phosphorus Level 2.1 MG/DL (2.5-4.9) L Magnesium Level 2.1 MG/DL (1.8-2.4) Total Bilirubin 0.2 MG/DL (0.2-1.0) Aspartate Amino Transf (AST/SGOT) 27 U/L (15-37) Alanine Aminotransferase (ALT/SGPT) 67 U/L (12-78) Alkaline Phosphatase 123 U/L (46-116) H Total Protein 7.0 G/DL (6.4-8.2) Albumin 2.7 G/DL (3.4-5.0) L Globulin 4.3 g/dL Albumin/Globulin Ratio 0.6 (1.0-2.7) L Intake and Output 07/20/18 07/21/18 18:59 06:59 Intake Total 1130.0 ml 1692.5 ml Output Total 1200 ml 1100 ml Balance -70.0 ml 592.5 ml IV Total 1080.0 ml 1092.5 ml Tube Feeding 50 ml 600 ml Output Urine Total 1200 ml 1100 ml # Bowel Movements 2 Objective GENERAL: The patient is well-developed, well-nourished male, who is intubated. HEENT: Eyes, pupils equal and responsive to light and accommodation. Extraocular movements are intact. NECK: Tracheosotmy; Supple without lymphadenopathy. CHEST: Mech vent; Decreased breath sounds, left lower lobe. Otherwise, without wheezes or rales. CARDIOVASCULAR: Tachycardic, regular rhythm. S1 and S2 are normal without murmurs, rubs, gallops. ABDOMEN: Soft, nontender, and nondistended. Positive bowel sounds. No evidence of hepatosplenomegaly. Currently, no rebound or guarding noted. NEUROLOGICAL: The patient is paraplegic. Cranial nerves II through XII are grossly intact without focal deficits. Assessment/Plan Problem List: (1) Hypertension (2) Dysphagia Assessment & Plan: On G-tube feeds (3) Healthcare-associated pneumonia Assessment & Plan: Continue zosyn and vanco per pulmonary (4) Acute on chronic respiratory failure Assessment & Plan: Chronic vent dep-see pulmonary note. (5) Elevated troponin Assessment & Plan: see cardiology note. (6) Quadriplegia (7) Feeding by G-tube (8) NSTEMI (non-ST elevated myocardial infarction) Assessment & Plan: See cardiology note (9) Vegetative state Zeyad Simmons MD Jul 21, 2018 17:51
--- NOTE | 2018-07-21 19:28 | NUR ---
HAND-OFF: Report given to MELECIO Rivera. Stable condition.
--- NOTE | 2018-07-21 19:29 | NUR ---
NURSE NOTES: Report received from MELECIO Mccoy. Pt A/Ox1, nonverbal, trach dependent. site monitor shows ST. Pt trach to vent, with portex 6. Ventilator settings: AC10, VT550, FiO2:30%, PEEP5. Shows no signs of cardiac or respiratory distress. Pt has a GT in place with osmolite 1.5 running at 50 ml/hr. Condom cathter present and draining well. Skin intact. Pt has a ALEXA PICC DL with D51/2NS running at 75 ml/hr. Pt to have a 8 am vanco trough. Bed in lowest position, bed alarms placed. Will continue to monitor and with patients plan of care.
[2018-07-21 20:00] VITALS: BP 128/83
[2018-07-21] MEDS: Dyna-Hex 2% Top Sol 2oz TOPIC SCH (20:09)
[2018-07-21] MEDS: Atorvastatin 20mg tab GT SCH (20:10)
[2018-07-22] VITALS: BP 131/81
[2018-07-22] MEDS: Piperacillin/Tazobactam 3.375 GM in D5W 110 ML IVPB SCH ×3 (02:35→18:11)
[2018-07-22 04:00] VITALS: BP 132/71
[2018-07-22] MEDS: Heparin 5000 units/ml inj SUBQ SCH ×3 (06:13→21:18)
[2018-07-22 06:15] LABS: BASOPHILS % (AUTO) 0.5 % (0.0-2.0); EOSINOPHILS % (AUTO) 4.8 % (0.0-3.0); HEMATOCRIT 28.6 % (42.0-52.0); HEMOGLOBIN 9.3 G/DL (14.2-18.0); LYMPHOCYTES % (AUTO) 21.3 % (20.0-45.0); MEAN CORPUSCULAR VOLUME 89 FL (80-99); MONOCYTES % (AUTO) 5.4 % (1.0-10.0); NEUTROPHILS % (AUTO) 68.1 % (45.0-75.0); PLATELET COUNT 260 K/UL (150-450); RED BLOOD COUNT 3.23 M/UL (4.70-6.10); RED CELL DISTRIBUTION WIDTH 14.2 % (11.6-14.8); WHITE BLOOD COUNT 8.7 K/UL (4.8-10.8)
[2018-07-22 06:53] LABS: ALANINE AMINOTRANSFERASE 66 U/L (12-78); ALBUMIN 2.7 G/DL (3.4-5.0); ALBUMIN/GLOBULIN RATIO 0.6 (1.0-2.7); ALKALINE PHOSPHATASE 118 U/L (46-116); ANION GAP 7 mmol/L (5-15); ASPARTATE AMINO TRANSFERASE 28 U/L (15-37); BILIRUBIN,TOTAL 0.2 MG/DL (0.2-1.0); BLOOD UREA NITROGEN 13 mg/dL (7-18); CALCIUM 8.9 MG/DL (8.5-10.1); CARBON DIOXIDE 30 MMOL/L (21-32); CHLORIDE 104 MMOL/L (98-107); CREATININE 0.4 MG/DL (0.55-1.30); PHOSPHORUS 2.7 MG/DL (2.5-4.9); POTASSIUM 3.6 MMOL/L (3.5-5.1); SODIUM 141 MMOL/L (136-145)
--- NOTE | 2018-07-22 07:29 | NUR ---
NURSE NOTES: Report received from MELECIO Castillo. Observed patient in bed open eyes spontaneously. Non-verbal. No s/s of pain at this time. On ventilator with previous setting and tolerated well. PICC line intact with ongoing IVF running at prescribed rate. GT site intact with feeding. HOB elevated. No residual noted. Mother at bedside. Bed in lowest position. Call light within reach. Will continue to monitor.
[2018-07-22] MEDS: D5 1/2NS 1,000 ML IV SCH ×2 (07:53→21:13)
[2018-07-22 08:00] VITALS: BP 144/77
--- NOTE | 2018-07-22 08:52 | Infectious Diseases Prog Note ---
Assessment/Plan Assessment/Plan 52 yo male with PMHx of Vent dependence, Dysphagia s/p PEG, Parapelgia, and HTN who was sent to the ED on 07/16/18 from his correction for fever and increased respiratory disteress. Sepsis - resolved PNA vs UTI UA (+) 07/16 Urine Cx 07/17 - Multiple organisms not worked up 07/16/18 Blood Cx (NGTD) CXR 07/16 - LLL Collapse Vent dependent sp trach Dysphagia s/p PEG Parapelgia HTN Lumbar laminectomy. Plan - Continue Vancomcyin #6/7 and zosyn #6/7 (End date 07/23/18) - Monitor CBC and Temps Thank you for this consult. We will continue to follow the patient during this hospitalization. Subjective Allergies: Coded Allergies: FISH CONTAINING PRODUCTS (Verified Allergy, Unknown, Anaphylaxis, 07/20/18) Spoke to patient's mother SHELLFISH DERIVED (Verified Allergy, Unknown, Anaphylaxis, 07/20/18) Spoke to patient's mother Subjective KACIE Afebrile No Leukocytosis Not verbal Objective Vital Signs Last 24 Hour Vital Signs Date Time Temp Pulse Resp B/P (MAP) Pulse Ox O2 Delivery O2 Flow Rate FiO2 07/22/18 08:00 30 07/22/18 08:00 97.9 115 11 144/77 (99) 100 07/22/18 08:00 Mechanical Ventilator 07/22/18 05:01 94 10 30 07/22/18 04:00 Mechanical Ventilator 07/22/18 04:00 100 07/22/18 04:00 30 07/22/18 04:00 98.2 94 11 132/71 (91) 100 07/22/18 03:09 101 12 30 07/22/18 00:59 110 12 30 07/22/18 00:00 30 07/22/18 00:00 109 07/22/18 00:00 Mechanical Ventilator 07/22/18 00:00 98.2 106 13 131/81 (98) 99 07/21/18 23:29 104 12 100 Mechanical Ventilator 30 07/21/18 23:19 107 13 99 Mechanical Ventilator 30 07/21/18 23:19 107 13 Mechanical Ventilator 30 07/21/18 23:18 107 13 30 07/21/18 21:39 101 12 30 07/21/18 20:00 30 07/21/18 20:00 Mechanical Ventilator 07/21/18 20:00 104 07/21/18 20:00 98.4 104 17 128/83 (98) 100 07/21/18 19:08 103 12 30 07/21/18 17:16 109 12 30 07/21/18 16:00 106 07/21/18 16:00 30 07/21/18 16:00 Mechanical Ventilator 07/21/18 16:00 97.9 113 12 147/81 (103) 99 07/21/18 16:00 103 13 30 07/21/18 15:56 105 10 98 Mechanical Ventilator 30 07/21/18 15:43 107 11 99 Mechanical Ventilator 30 07/21/18 12:48 121 13 30 07/21/18 12:00 Mechanical Ventilator 07/21/18 12:00 97.9 117 14 143/82 (102) 98 07/21/18 12:00 111 07/21/18 11:54 30 07/21/18 10:52 112 15 30 07/21/18 08:58 127 13 30 Height (Feet): 5 Height (Inches): 7.00 Weight (Pounds): 157 Objective Gen: NAD, Satting well on vent 30% O2 HEENT: NCAT, MMM, PERRL LUNGS: Coarse Left side decreased, No W CARDS: RRR, S1, S2, No M/R/G, ABD: Soft, NT, ND, + BS, PEG (No E/P) Laboratory Tests Test 07/22/18 03:40 07/22/18 08:00 White Blood Count 8.7 K/UL (4.8-10.8) Red Blood Count 3.23 M/UL (4.70-6.10) L Hemoglobin 9.3 G/DL (14.2-18.0) L Hematocrit 28.6 % (42.0-52.0) L Mean Corpuscular Volume 89 FL (80-99) Mean Corpuscular Hemoglobin 28.9 PG (27.0-31.0) Mean Corpuscular Hemoglobin Concent 32.6 G/DL (32.0-36.0) Red Cell Distribution Width 14.2 % (11.6-14.8) Platelet Count 260 K/UL (150-450) Mean Platelet Volume 5.4 FL (6.5-10.1) L Neutrophils (%) (Auto) 68.1 % (45.0-75.0) Lymphocytes (%) (Auto) 21.3 % (20.0-45.0) Monocytes (%) (Auto) 5.4 % (1.0-10.0) Eosinophils (%) (Auto) 4.8 % (0.0-3.0) H Basophils (%) (Auto) 0.5 % (0.0-2.0) Sodium Level 141 MMOL/L (136-145) Potassium Level 3.6 MMOL/L (3.5-5.1) Chloride Level 104 MMOL/L (98-107) Carbon Dioxide Level 30 MMOL/L (21-32) Anion Gap 7 mmol/L (5-15) Blood Urea Nitrogen 13 mg/dL (7-18) Creatinine 0.4 MG/DL (0.55-1.30) L Estimat Glomerular Filtration Rate > 60 mL/min (>60) Glucose Level 195 MG/DL (74-106) H Calcium Level 8.9 MG/DL (8.5-10.1) Phosphorus Level 2.7 MG/DL (2.5-4.9) Magnesium Level 2.2 MG/DL (1.8-2.4) Total Bilirubin 0.2 MG/DL (0.2-1.0) Aspartate Amino Transf (AST/SGOT) 28 U/L (15-37) Alanine Aminotransferase (ALT/SGPT) 66 U/L (12-78) Alkaline Phosphatase 118 U/L (46-116) H Total Protein 7.0 G/DL (6.4-8.2) Albumin 2.7 G/DL (3.4-5.0) L Globulin 4.3 g/dL Albumin/Globulin Ratio 0.6 (1.0-2.7) L Vancomycin Level Trough Pending Current Medications Medications (Trade) Dose Ordered Sig/Becca Route PRN Reason Start Time Stop Time Status Last Admin Dose Admin Acetaminophen (Tylenol) 650 mg Q6H PRN GT Mild Pain/Temp > 100.5 07/17/18 08:45 08/16/18 08:44 Albuterol/ Ipratropium (Albuterol/ Ipratropium) 3 ml Q8HRT HHN 07/17/18 09:00 07/22/18 08:59 07/21/18 23:20 Atorvastatin Calcium (Lipitor) 40 mg BEDTIME GT 07/17/18 21:00 08/16/18 20:59 07/21/18 20:10 Bisacodyl (Dulcolax) 10 mg DAILYPRN PRN RECTAL Constipation 07/17/18 08:15 08/16/18 08:14 Chlorhexidine Gluconate (Lawanda-Hex 2%) 1 applic DAILY@2000 TOPIC 07/17/18 20:00 08/16/18 19:59 07/21/18 20:09 Dextrose/Sodium Chloride 1,000 ml @ 75 mls/hr [id number] IV 07/17/18 08:00 08/16/18 07:59 07/22/18 07:53 Docusate Sodium (Colace) 200 mg TWICE A DAY PRN NG Constipation 07/17/18 10:45 08/16/18 10:44 Guaifenesin (Robitussin) 100 mg Q24H PRN GT For Cough 07/17/18 08:15 08/16/18 08:14 Heparin Sodium (Porcine) (Heparin 5000 units/ml) 5,000 units EVERY 8 HOURS SUBQ 07/17/18 14:00 08/16/18 13:59 07/22/18 06:13 Lansoprazole (Prevacid) 30 mg DAILY GT 07/17/18 09:00 08/16/18 08:59 07/21/18 09:08 Magnesium Oxide (Mag-Ox 400mg) 400 mg DAILY GT 07/17/18 09:00 08/16/18 08:59 07/21/18 09:08 Midodrine (Pro-Amatine) 5 mg THREE TIMES A DAY GT 07/17/18 09:00 08/16/18 08:59 07/21/18 09:07 Piperacillin Sod/ Tazobactam Sod 3.375 gm/Dextrose 110 ml @ 27.5 mls/hr Q8H IVPB 07/17/18 11:00 07/24/18 10:59 07/22/18 02:35 Pyridoxine HCl (Vitamin B6) 100 mg DAILY GT 07/17/18 09:00 08/16/18 08:59 07/21/18 09:07 Sennosides (Senokot) 17.2 mg DAILY PRN GT Constipation 07/17/18 08:15 08/16/18 08:14 Vancomycin HCl (Vanco rx to dose) 1 ea DAILY MISC 07/17/18 09:00 08/16/18 08:59 Vancomycin HCl/ Dextrose 250 ml @ 166.667 mls/hr Q24H IVPB 07/20/18 09:00 07/25/18 08:59 07/21/18 09:08 Vitamin D (Vitamin D) 1,000 intlu DAILY ORAL 07/18/18 09:00 08/17/18 08:59 07/21/18 09:07 Ganga Tian MD Jul 22, 2018 08:52
[2018-07-22] MEDS: Pyridoxine 50mg tab GT SCH (08:55)
[2018-07-22] MEDS: Magnesium Oxide 400mg tab GT SCH (08:56)
[2018-07-22] MEDS: Vitamin D 1000 IU Tab ORAL SCH (08:56)
[2018-07-22] MEDS: Albuterol/Ipratropium 3ml neb HHN SCH (09:01)
[2018-07-22] MEDS: Vancomycin 1250mg/D5W 250ml IVPB SCH (09:15)
--- NOTE | 2018-07-22 10:41 | Pulmonology Progress Note ---
Assessment/Plan Problems: (1) Acute on chronic respiratory failure (2) Healthcare-associated pneumonia (3) Sepsis (4) Feeding by G-tube (5) Quadriplegia (6) Vegetative state Respiratory: monitor respiratory rate, adjust FIO2, CXR Cardiac: continue to monitor HR/BP Renal: F/U I&O, check electrolytes Infectious Disease: check cultures, continue antibiotics Gastrointestinal: continue feedings/current rate Endocrine: monitor blood sugar, check HgA1C Hematologic: transfuse if hgb<8.5 Neurologic: keep patient comfortable Affect: PRN ativan Prophylaxis: Heparin Notes Reviewed: cardio Discussed with: nurses, consultants, briefcase sewer Subjective ROS Limited/Unobtainable: No Constitutional: Reports: no symptoms HEENT: Repors: no symptoms Respiratory: Reports: no symptoms Allergies: Coded Allergies: FISH CONTAINING PRODUCTS (Verified Allergy, Unknown, Anaphylaxis, 07/20/18) Spoke to patient's mother SHELLFISH DERIVED (Verified Allergy, Unknown, Anaphylaxis, 07/20/18) Spoke to patient's mother Objective Last 24 Hour Vital Signs Date Time Temp Pulse Resp B/P (MAP) Pulse Ox O2 Delivery O2 Flow Rate FiO2 07/22/18 09:01 109 12 99 Mechanical Ventilator 30 07/22/18 09:01 109 12 100 Mechanical Ventilator 30 07/22/18 09:01 112 12 30 07/22/18 08:00 30 07/22/18 08:00 117 07/22/18 08:00 97.9 115 11 144/77 (99) 100 07/22/18 08:00 Mechanical Ventilator 07/22/18 05:01 94 10 30 07/22/18 04:00 Mechanical Ventilator 07/22/18 04:00 100 07/22/18 04:00 30 07/22/18 04:00 98.2 94 11 132/71 (91) 100 07/22/18 03:09 101 12 30 07/22/18 00:59 110 12 30 07/22/18 00:00 30 07/22/18 00:00 109 07/22/18 00:00 Mechanical Ventilator 07/22/18 00:00 98.2 106 13 131/81 (98) 99 07/21/18 23:29 104 12 100 Mechanical Ventilator 30 07/21/18 23:19 107 13 99 Mechanical Ventilator 30 07/21/18 23:19 107 13 Mechanical Ventilator 30 07/21/18 23:18 107 13 30 07/21/18 21:39 101 12 30 07/21/18 20:00 30 07/21/18 20:00 Mechanical Ventilator 07/21/18 20:00 104 07/21/18 20:00 98.4 104 17 128/83 (98) 100 07/21/18 19:08 103 12 30 07/21/18 17:16 109 12 30 07/21/18 16:00 106 07/21/18 16:00 30 07/21/18 16:00 Mechanical Ventilator 07/21/18 16:00 97.9 113 12 147/81 (103) 99 07/21/18 16:00 103 13 30 07/21/18 15:56 105 10 98 Mechanical Ventilator 30 07/21/18 15:43 107 11 99 Mechanical Ventilator 30 07/21/18 12:48 121 13 30 07/21/18 12:00 Mechanical Ventilator 07/21/18 12:00 97.9 117 14 143/82 (102) 98 07/21/18 12:00 111 07/21/18 11:54 30 07/21/18 10:52 112 15 30 Intake and Output 07/21/18 07/22/18 19:00 07:00 Intake Total 2072.500 ml 1820.0 ml Output Total 1200 ml 1000 ml Balance 872.500 ml 820.0 ml Intake Free Water 260 ml 50 ml IV Total 1212.500 ml 1120.0 ml Tube Feeding 600 ml 600 ml Other 50 ml Output Urine Total 1200 ml 1000 ml # Voids 1 # Bowel Movements 2 2 General Appearance: WD/WN HEENT: normocephalic, atraumatic Respiratory/Chest: chest wall non-tender, lungs clear Cardiovascular: normal peripheral pulses, normal rate Abdomen: normal bowel sounds, no organomegaly Genitourinary: normal external genitalia Skin: no rash, no ulcers Laboratory Tests 07/22/18 03:40: White Blood Count 8.7, Red Blood Count 3.23L, Hemoglobin 9.3L, Hematocrit 28.6L , Mean Corpuscular Volume 89, Mean Corpuscular Hemoglobin 28.9, Mean Corpuscular Hemoglobin Concent 32.6, Red Cell Distribution Width 14.2, Platelet Count 260, Mean Platelet Volume 5.4L, Neutrophils (%) (Auto) 68.1, Lymphocytes ( %) (Auto) 21.3, Monocytes (%) (Auto) 5.4, Eosinophils (%) (Auto) 4.8H, Basophils (%) (Auto) 0.5, Sodium Level 141, Potassium Level 3.6, Chloride Level 104, Carbon Dioxide Level 30, Anion Gap 7, Blood Urea Nitrogen 13, Creatinine 0.4L, Estimat Glomerular Filtration Rate > 60, Glucose Level 195H, Calcium Level 8.9, Phosphorus Level 2.7, Magnesium Level 2.2, Total Bilirubin 0.2, Aspartate Amino Transf (AST/SGOT) 28, Alanine Aminotransferase (ALT/SGPT) 66, Alkaline Phosphatase 118H, Total Protein 7.0, Albumin 2.7L, Globulin 4.3, Albumin/Globulin Ratio 0.6L 07/22/18 08:00: Vancomycin Level Trough 17.4H Current Medications Medications (Trade) Dose Ordered Sig/Becca Route PRN Reason Start Time Stop Time Status Last Admin Dose Admin Acetaminophen (Tylenol) 650 mg Q6H PRN GT Mild Pain/Temp > 100.5 07/17/18 08:45 08/16/18 08:44 Atorvastatin Calcium (Lipitor) 40 mg BEDTIME GT 07/17/18 21:00 08/16/18 20:59 07/21/18 20:10 Bisacodyl (Dulcolax) 10 mg DAILYPRN PRN RECTAL Constipation 07/17/18 08:15 08/16/18 08:14 Chlorhexidine Gluconate (Lawanda-Hex 2%) 1 applic DAILY@2000 TOPIC 07/17/18 20:00 08/16/18 19:59 07/21/18 20:09 Dextrose/Sodium Chloride 1,000 ml @ 75 mls/hr [id number] IV 07/17/18 08:00 08/16/18 07:59 07/22/18 07:53 Docusate Sodium (Colace) 200 mg TWICE A DAY PRN NG Constipation 07/17/18 10:45 08/16/18 10:44 Guaifenesin (Robitussin) 100 mg Q24H PRN GT For Cough 07/17/18 08:15 08/16/18 08:14 Heparin Sodium (Porcine) (Heparin 5000 units/ml) 5,000 units EVERY 8 HOURS SUBQ 07/17/18 14:00 08/16/18 13:59 07/22/18 06:13 Lansoprazole (Prevacid) 30 mg DAILY GT 07/17/18 09:00 08/16/18 08:59 07/22/18 08:56 Magnesium Oxide (Mag-Ox 400mg) 400 mg DAILY GT 07/17/18 09:00 08/16/18 08:59 07/22/18 08:56 Midodrine (Pro-Amatine) 5 mg THREE TIMES A DAY GT 07/17/18 09:00 08/16/18 08:59 07/21/18 09:07 Piperacillin Sod/ Tazobactam Sod 3.375 gm/Dextrose 110 ml @ 27.5 mls/hr Q8H IVPB 07/17/18 11:00 07/24/18 10:59 07/22/18 10:39 Pyridoxine HCl (Vitamin B6) 100 mg DAILY GT 07/17/18 09:00 08/16/18 08:59 07/22/18 08:55 Sennosides (Senokot) 17.2 mg DAILY PRN GT Constipation 07/17/18 08:15 08/16/18 08:14 Vancomycin HCl (Vanco rx to dose) 1 ea DAILY MISC 07/17/18 09:00 08/16/18 08:59 Vancomycin HCl/ Dextrose 250 ml @ 166.667 mls/hr Q24H IVPB 07/20/18 09:00 07/25/18 08:59 07/22/18 09:15 Vitamin D (Vitamin D) 1,000 intlu DAILY ORAL 07/18/18 09:00 08/17/18 08:59 07/22/18 08:56 Milena Ross MD Jul 22, 2018 10:41
--- NOTE | 2018-07-22 11:04 | NUR ---
CASE MANAGEMENT: REVIEW SI: SEPSIS T 97.9 HR 115 RR 11 BP 144/77 SAT 99% MECH VENT FIO2 30 H/H 9.3/28.6 IS: VANCO IV Q12HR ZOSYN IV Q8HR MAG OX 400MG PO QD D5 1/2 NS IVF @ 75ML/HR K-DUR PO BID STEP DOWN UNIT STATUS DCP: PATIENT IS FROM [facility]
[2018-07-22 12:00] VITALS: BP 125/85
--- NOTE | 2018-07-22 14:59 | Cardiac Electrophysiology PN ---
Assessment/Plan Assessment/Plan 1. Troponin leak. The levels are flat. The patient is nonverbal. Likely due to dehydration. Echo EF 55% 2. VDRF, status post tracheostomy. 3. Dysphagia, status post percutaneous endoscopic gastrostomy placement. 4. Hypokalemia. 5. Azotemia.On iv fluid 6. Encephalopathy Subjective Subjective Mother and RN at bedside. On the vent. Sinus tach Objective Last 24 Hour Vital Signs Date Time Temp Pulse Resp B/P (MAP) Pulse Ox O2 Delivery O2 Flow Rate FiO2 07/22/18 13:30 121 13 30 07/22/18 12:00 97.5 119 12 125/85 (98) 98 07/22/18 12:00 Mechanical Ventilator 07/22/18 12:00 122 07/22/18 12:00 30 07/22/18 11:02 108 12 30 07/22/18 09:01 109 12 99 Mechanical Ventilator 30 07/22/18 09:01 109 12 100 Mechanical Ventilator 30 07/22/18 09:01 112 12 30 07/22/18 08:00 30 07/22/18 08:00 117 07/22/18 08:00 97.9 115 11 144/77 (99) 100 07/22/18 08:00 Mechanical Ventilator 07/22/18 05:01 94 10 30 07/22/18 04:00 Mechanical Ventilator 07/22/18 04:00 100 07/22/18 04:00 30 07/22/18 04:00 98.2 94 11 132/71 (91) 100 07/22/18 03:09 101 12 30 07/22/18 00:59 110 12 30 07/22/18 00:00 30 07/22/18 00:00 109 07/22/18 00:00 Mechanical Ventilator 07/22/18 00:00 98.2 106 13 131/81 (98) 99 07/21/18 23:29 104 12 100 Mechanical Ventilator 30 07/21/18 23:19 107 13 99 Mechanical Ventilator 30 07/21/18 23:19 107 13 Mechanical Ventilator 30 07/21/18 23:18 107 13 30 07/21/18 21:39 101 12 30 07/21/18 20:00 30 07/21/18 20:00 Mechanical Ventilator 07/21/18 20:00 104 07/21/18 20:00 98.4 104 17 128/83 (98) 100 07/21/18 19:08 103 12 30 07/21/18 17:16 109 12 30 07/21/18 16:00 106 07/21/18 16:00 30 07/21/18 16:00 Mechanical Ventilator 07/21/18 16:00 97.9 113 12 147/81 (103) 99 07/21/18 16:00 103 13 30 07/21/18 15:56 105 10 98 Mechanical Ventilator 30 07/21/18 15:43 107 11 99 Mechanical Ventilator 30 Intake and Output 07/21/18 07/22/18 19:00 07:00 Intake Total 2072.500 ml 1820.0 ml Output Total 1200 ml 1000 ml Balance 872.500 ml 820.0 ml Intake Free Water 260 ml 50 ml IV Total 1212.500 ml 1120.0 ml Tube Feeding 600 ml 600 ml Other 50 ml Output Urine Total 1200 ml 1000 ml # Voids 1 # Bowel Movements 2 2 Laboratory Tests Test 07/22/18 03:40 07/22/18 08:00 White Blood Count 8.7 K/UL (4.8-10.8) Red Blood Count 3.23 M/UL (4.70-6.10) L Hemoglobin 9.3 G/DL (14.2-18.0) L Hematocrit 28.6 % (42.0-52.0) L Mean Corpuscular Volume 89 FL (80-99) Mean Corpuscular Hemoglobin 28.9 PG (27.0-31.0) Mean Corpuscular Hemoglobin Concent 32.6 G/DL (32.0-36.0) Red Cell Distribution Width 14.2 % (11.6-14.8) Platelet Count 260 K/UL (150-450) Mean Platelet Volume 5.4 FL (6.5-10.1) L Neutrophils (%) (Auto) 68.1 % (45.0-75.0) Lymphocytes (%) (Auto) 21.3 % (20.0-45.0) Monocytes (%) (Auto) 5.4 % (1.0-10.0) Eosinophils (%) (Auto) 4.8 % (0.0-3.0) H Basophils (%) (Auto) 0.5 % (0.0-2.0) Sodium Level 141 MMOL/L (136-145) Potassium Level 3.6 MMOL/L (3.5-5.1) Chloride Level 104 MMOL/L (98-107) Carbon Dioxide Level 30 MMOL/L (21-32) Anion Gap 7 mmol/L (5-15) Blood Urea Nitrogen 13 mg/dL (7-18) Creatinine 0.4 MG/DL (0.55-1.30) L Estimat Glomerular Filtration Rate > 60 mL/min (>60) Glucose Level 195 MG/DL (74-106) H Calcium Level 8.9 MG/DL (8.5-10.1) Phosphorus Level 2.7 MG/DL (2.5-4.9) Magnesium Level 2.2 MG/DL (1.8-2.4) Total Bilirubin 0.2 MG/DL (0.2-1.0) Aspartate Amino Transf (AST/SGOT) 28 U/L (15-37) Alanine Aminotransferase (ALT/SGPT) 66 U/L (12-78) Alkaline Phosphatase 118 U/L (46-116) H Total Protein 7.0 G/DL (6.4-8.2) Albumin 2.7 G/DL (3.4-5.0) L Globulin 4.3 g/dL Albumin/Globulin Ratio 0.6 (1.0-2.7) L Vancomycin Level Trough 17.4 ug/mL (5.0-12.0) H Objective HEAD AND NECK: No JVD. Status post tracheostomy. LUNGS: Coarse rhonchi. CARDIOVASCULAR: Regular tachy S1 and S2 with no gallop. ABDOMEN: Status post PEG. EXTREMITIES: With no pitting edema. NEUROLOGIC: He is quadriplegic and nonverbal. Wale Severino MD Jul 22, 2018 14:59
--- NOTE | 2018-07-22 15:55 | NUR ---
CASE MANAGEMENT: DCPNOTE PER FAMILY REQUEST PATIENT REFERRED A ALTERNATE SUBACUTE. PATIENT REFERRED TO [facility] / PATIENT NOT ACCEPTED PATIENT REFERRED TO [facility] / PATIENT NOT ACCEPTED FAMILY MADE AWARE
[2018-07-22 16:00] VITALS: BP 124/94
[2018-07-22] MEDS ORDERED: D5 1/2NS 1000ml IV ONE (16:12)
[2018-07-22] MEDS ORDERED: NS 275ml ONE (16:12)
[2018-07-22] MEDS ORDERED: Tubing IV Secondary IV ONE (16:12)
--- NOTE | 2018-07-22 18:15 | Internal Med Progress Note ---
Subjective Date of Service: Jul 22, 2018 Physician Name Zeyad Simmons Attending Physician Wilner Suarez MD Current Medications Medications (Trade) Dose Ordered Sig/Becca Route PRN Reason Start Time Stop Time Status Last Admin Dose Admin Acetaminophen (Tylenol) 650 mg Q6H PRN GT Mild Pain/Temp > 100.5 07/17/18 08:45 08/16/18 08:44 Atorvastatin Calcium (Lipitor) 40 mg BEDTIME GT 07/17/18 21:00 08/16/18 20:59 07/21/18 20:10 Bisacodyl (Dulcolax) 10 mg DAILYPRN PRN RECTAL Constipation 07/17/18 08:15 08/16/18 08:14 Chlorhexidine Gluconate (Lawanda-Hex 2%) 1 applic DAILY@2000 TOPIC 07/17/18 20:00 08/16/18 19:59 07/21/18 20:09 Dextrose/Sodium Chloride 1,000 ml @ 75 mls/hr [id number] IV 07/17/18 08:00 08/16/18 07:59 07/22/18 07:53 Docusate Sodium (Colace) 200 mg TWICE A DAY PRN NG Constipation 07/17/18 10:45 08/16/18 10:44 Guaifenesin (Robitussin) 100 mg Q24H PRN GT For Cough 07/17/18 08:15 08/16/18 08:14 Heparin Sodium (Porcine) (Heparin 5000 units/ml) 5,000 units EVERY 8 HOURS SUBQ 07/17/18 14:00 08/16/18 13:59 07/22/18 13:48 Lansoprazole (Prevacid) 30 mg DAILY GT 07/17/18 09:00 08/16/18 08:59 07/22/18 08:56 Magnesium Oxide (Mag-Ox 400mg) 400 mg DAILY GT 07/17/18 09:00 08/16/18 08:59 07/22/18 08:56 Midodrine (Pro-Amatine) 5 mg THREE TIMES A DAY GT 07/17/18 09:00 08/16/18 08:59 07/22/18 18:10 Piperacillin Sod/ Tazobactam Sod 3.375 gm/Dextrose 110 ml @ 27.5 mls/hr Q8H IVPB 07/17/18 11:00 07/24/18 10:59 07/22/18 18:11 Pyridoxine HCl (Vitamin B6) 100 mg DAILY GT 07/17/18 09:00 08/16/18 08:59 07/22/18 08:55 Sennosides (Senokot) 17.2 mg DAILY PRN GT Constipation 07/17/18 08:15 08/16/18 08:14 Vancomycin HCl (Vanco rx to dose) 1 ea DAILY MISC 07/17/18 09:00 08/16/18 08:59 Vancomycin HCl/ Dextrose 250 ml @ 166.667 mls/hr Q24H IVPB 07/20/18 09:00 07/25/18 08:59 07/22/18 09:15 Vitamin D (Vitamin D) 1,000 intlu DAILY ORAL 07/18/18 09:00 08/17/18 08:59 07/22/18 08:56 Allergies: Coded Allergies: FISH CONTAINING PRODUCTS (Verified Allergy, Unknown, Anaphylaxis, 07/20/18) Spoke to patient's mother SHELLFISH DERIVED (Verified Allergy, Unknown, Anaphylaxis, 07/20/18) Spoke to patient's mother ROS Limited/Unobtainable: Yes Subjective 52 YO M paraplegic with chronic vent dep admitted with Shortness of breath. Now LLL pneumonia and elevated troponin. Cover for Int Med-dr Suarez. DIANNE Objective Last Vital Signs Date Time Temp Pulse Resp B/P (MAP) Pulse Ox O2 Delivery O2 Flow Rate FiO2 07/22/18 17:09 103 12 30 07/22/18 16:00 Mechanical Ventilator 07/22/18 16:00 97.5 124/94 (104) 99 Laboratory Tests Test 07/22/18 03:40 07/22/18 08:00 White Blood Count 8.7 K/UL (4.8-10.8) Red Blood Count 3.23 M/UL (4.70-6.10) L Hemoglobin 9.3 G/DL (14.2-18.0) L Hematocrit 28.6 % (42.0-52.0) L Mean Corpuscular Volume 89 FL (80-99) Mean Corpuscular Hemoglobin 28.9 PG (27.0-31.0) Mean Corpuscular Hemoglobin Concent 32.6 G/DL (32.0-36.0) Red Cell Distribution Width 14.2 % (11.6-14.8) Platelet Count 260 K/UL (150-450) Mean Platelet Volume 5.4 FL (6.5-10.1) L Neutrophils (%) (Auto) 68.1 % (45.0-75.0) Lymphocytes (%) (Auto) 21.3 % (20.0-45.0) Monocytes (%) (Auto) 5.4 % (1.0-10.0) Eosinophils (%) (Auto) 4.8 % (0.0-3.0) H Basophils (%) (Auto) 0.5 % (0.0-2.0) Sodium Level 141 MMOL/L (136-145) Potassium Level 3.6 MMOL/L (3.5-5.1) Chloride Level 104 MMOL/L (98-107) Carbon Dioxide Level 30 MMOL/L (21-32) Anion Gap 7 mmol/L (5-15) Blood Urea Nitrogen 13 mg/dL (7-18) Creatinine 0.4 MG/DL (0.55-1.30) L Estimat Glomerular Filtration Rate > 60 mL/min (>60) Glucose Level 195 MG/DL (74-106) H Calcium Level 8.9 MG/DL (8.5-10.1) Phosphorus Level 2.7 MG/DL (2.5-4.9) Magnesium Level 2.2 MG/DL (1.8-2.4) Total Bilirubin 0.2 MG/DL (0.2-1.0) Aspartate Amino Transf (AST/SGOT) 28 U/L (15-37) Alanine Aminotransferase (ALT/SGPT) 66 U/L (12-78) Alkaline Phosphatase 118 U/L (46-116) H Total Protein 7.0 G/DL (6.4-8.2) Albumin 2.7 G/DL (3.4-5.0) L Globulin 4.3 g/dL Albumin/Globulin Ratio 0.6 (1.0-2.7) L Vancomycin Level Trough 17.4 ug/mL (5.0-12.0) H Intake and Output 07/21/18 07/22/18 18:59 06:59 Intake Total 2107.500 ml 1820.0 ml Output Total 1200 ml 1000 ml Balance 907.500 ml 820.0 ml Intake Free Water 260 ml 50 ml IV Total 1247.500 ml 1120.0 ml Tube Feeding 600 ml 600 ml Other 50 ml Output Urine Total 1200 ml 1000 ml # Voids 1 # Bowel Movements 2 2 Objective GENERAL: The patient is well-developed, well-nourished male, who is intubated. HEENT: Eyes, pupils equal and responsive to light and accommodation. Extraocular movements are intact. NECK: Tracheosotmy; Supple without lymphadenopathy. CHEST: Mech vent; Decreased breath sounds, left lower lobe. Otherwise, without wheezes or rales. CARDIOVASCULAR: Tachycardic, regular rhythm. S1 and S2 are normal without murmurs, rubs, gallops. ABDOMEN: Soft, nontender, and nondistended. Positive bowel sounds. No evidence of hepatosplenomegaly. Currently, no rebound or guarding noted. NEUROLOGICAL: The patient is paraplegic. Cranial nerves II through XII are grossly intact without focal deficits. Assessment/Plan Problem List: (1) Hypertension (2) Dysphagia Assessment & Plan: On G-tube feeds (3) Healthcare-associated pneumonia Assessment & Plan: Continue zosyn and vanco per pulmonary (4) Acute on chronic respiratory failure Assessment & Plan: Chronic vent dep-see pulmonary note. (5) Elevated troponin Assessment & Plan: see cardiology note. (6) Quadriplegia (7) Feeding by G-tube (8) NSTEMI (non-ST elevated myocardial infarction) Assessment & Plan: See cardiology note (9) Vegetative state Status: not improved Zeyad Simmons MD Jul 22, 2018 18:14
--- NOTE | 2018-07-22 19:14 | NUR ---
HAND-OFF: Report given to MELECIO Castillo. Stable condition.
--- NOTE | 2018-07-22 19:15 | NUR ---
NURSE NOTES: Report received from MELECIO Mccoy. Pt A/Ox1, nonverbal, trach dependent. shelter monitor shows ST. Pt trach to vent, with portex 6. Ventilator settings: AC10, VT550, FiO2:30%, PEEP5. Shows no signs of cardiac or respiratory distress. Pt has a GT in place with osmolite 1.5 running at 50 ml/hr. Condom cathter present and draining well. Skin intact. Pt has a ALEXA PICC DL with D51/2NS running at 75 ml/hr. Bed in lowest position, bed alarms placed. Will continue to monitor and with patients plan of care.
[2018-07-22 20:00] VITALS: BP 133/87
--- NOTE | 2018-07-22 20:00 | NUR ---
RESPIRATORY NOTE: Received pt. on 840 vent. Vent settings are: A/C rate of 10, Vt 550, FI02 30%, PEEP +5. No respiratory distress noted, Pt Sp02 @ 99%. Vent plugged on red outlet. Will continue to monitor pt.
[2018-07-22] MEDS: Dyna-Hex 2% Top Sol 2oz TOPIC SCH (21:13)
[2018-07-22] MEDS: Atorvastatin 20mg tab GT SCH (21:14)
--- NOTE | 2018-07-22 23:15 | NUR ---
NURSE NOTES: Received report from Anna RN, pt. is in bed awake with eyes open- non-verbal, no signs and symptoms of respiratory distress noted, broadcast traffic coordinator on, bed in lowest position and call light within easy reach, bed alarm on, side rails up x's3 and safety brakes engaged, pt. appears to be tolerating current vent settings well- AC 10, TV 550, Fio2 30% and peep 5- no respiratory distress noted, G tube intact and patent- no residual noted running Osmolite 1.5 at 50cc/hr, condom cath intact and draining to gravity, KARL Picc intact and patent running D5 1/2 NS at 75cc/hr- IV intact and patent, family at bedside, safety measures continued, will continue with plan of care.
[2018-07-23] VITALS: BP 147/89
[2018-07-23] MEDS: Piperacillin/Tazobactam 3.375 GM in D5W 110 ML IVPB SCH ×3 (02:52→18:04)
[2018-07-23 04:00] VITALS: BP 125/75
[2018-07-23] MEDS: Heparin 5000 units/ml inj SUBQ SCH ×3 (05:52→22:17)
[2018-07-23 06:19] LABS: BASOPHILS % (AUTO) 0.5 % (0.0-2.0); EOSINOPHILS % (AUTO) 3.5 % (0.0-3.0); HEMATOCRIT 27.8 % (42.0-52.0); HEMOGLOBIN 8.9 G/DL (14.2-18.0); LYMPHOCYTES % (AUTO) 19.4 % (20.0-45.0); MEAN CORPUSCULAR VOLUME 90 FL (80-99); MONOCYTES % (AUTO) 5.6 % (1.0-10.0); PLATELET COUNT 258 K/UL (150-450); RED BLOOD COUNT 3.08 M/UL (4.70-6.10); RED CELL DISTRIBUTION WIDTH 14.4 % (11.6-14.8)
--- NOTE | 2018-07-23 07:00 | NUR ---
HAND-OFF: Report given to Lloyd RN, pt. remains stable and no signs and symptoms of acute distress noted.
--- NOTE | 2018-07-23 07:01 | NUR ---
NURSE NOTES: Received patient from MELECIO Prescott. Patient in bed and awake, but nonverbal. On portex 6 AC 10 TV 550 Fi02 30% Peep 5. No SOB. smoke inspector in placed. Gtube feeding Osmolite 1.5 @ 50 cc/hour. Condom cath is draining well. ALEXA PICC asymptomatic. Bed in lowest position with side rails up. Will continue to follow plan of care.
[2018-07-23 07:08] LABS: ALANINE AMINOTRANSFERASE 63 U/L (12-78); ALBUMIN 2.6 G/DL (3.4-5.0); ALBUMIN/GLOBULIN RATIO 0.6 (1.0-2.7); ALKALINE PHOSPHATASE 110 U/L (46-116); ANION GAP 7 mmol/L (5-15); ASPARTATE AMINO TRANSFERASE 32 U/L (15-37); BILIRUBIN,TOTAL 0.2 MG/DL (0.2-1.0); BLOOD UREA NITROGEN 13 mg/dL (7-18); CALCIUM 8.4 MG/DL (8.5-10.1); CARBON DIOXIDE 29 MMOL/L (21-32); CHLORIDE 102 MMOL/L (98-107); CREATININE 0.5 MG/DL (0.55-1.30); POTASSIUM 3.1 MMOL/L (3.5-5.1); SODIUM 138 MMOL/L (136-145)
[2018-07-23 08:00] VITALS: BP 137/78
[2018-07-23] MEDS: Vitamin D 1000 IU Tab ORAL SCH (08:42)
[2018-07-23] MEDS: Pyridoxine 50mg tab GT SCH (08:42)
[2018-07-23] MEDS: Magnesium Oxide 400mg tab GT SCH (08:42)
[2018-07-23] MEDS: Vancomycin 1250mg/D5W 250ml IVPB SCH (09:03)
--- NOTE | 2018-07-23 09:21 | Diagnostic Imaging Report ---
EXAM: XR Chest, 1 View CLINICAL HISTORY: DYSPNEA TECHNIQUE: Frontal view of the chest. COMPARISON: Chest x-ray dated 07/19/18 FINDINGS: Lungs: Persistent patchy opacities at the periphery of the left lung base and retrocardiac region, unchanged. Unchanged mildly prominent interstitial markings. Pleural space: Possible small left pleural effusion. Heart: Unremarkable. Mediastinum: Unremarkable. Bones/joints: Unremarkable. Tubes, lines and devices: Stable positioning of a left arm PICC with catheter tip in the right atrium region. Unchanged positioning of the tracheostomy tube. IMPRESSION: 1. Persistent patchy opacities at the periphery of the left lung base and retrocardiac region, unchanged. 2. Unchanged mildly prominent interstitial markings. 3. Possible small left pleural effusion.
[2018-07-23] MEDS: D5 1/2NS 1,000 ML IV SCH (10:19)
--- NOTE | 2018-07-23 11:23 | Infectious Diseases Prog Note ---
Assessment/Plan Assessment/Plan 52 yo male with PMHx of Vent dependence, Dysphagia s/p PEG, Parapelgia, and HTN who was [facility] the [facility] for [facility] and increased respiratory disteress. Sepsis - resolved PNA vs UTI UA (+) 07/16 Urine Cx 07/17 - Multiple organisms not worked up 07/16/18 Blood Cx (NGTD) CXR 07/23: 1. Persistent patchy opacities at the periphery of the left lung base and retrocardiac region, unchanged. 2. Unchanged mildly prominent interstitial markings. 3. Possible small left pleural effusion. CXR 07/16 - LLL Collapse Vent dependent sp trach Dysphagia s/p PEG Parapelgia HTN Lumbar laminectomy. Plan - Continue Vancomcyin #7/ and zosyn #7/ (End date 07/23/18) - Monitor CBC and Temps Thank you for this consult. We will continue to follow the patient during this hospitalization. Subjective Allergies: Coded Allergies: FISH CONTAINING PRODUCTS (Verified Allergy, Unknown, Anaphylaxis, 07/20/18) Spoke to patient's mother SHELLFISH DERIVED (Verified Allergy, Unknown, Anaphylaxis, 07/20/18) Spoke to patient's mother Subjective afebrile no leukocytosis Objective Vital Signs Last 24 Hour Vital Signs Date Time Temp Pulse Resp B/P (MAP) Pulse Ox O2 Delivery O2 Flow Rate FiO2 07/23/18 09:01 105 16 30 07/23/18 08:00 98.1 109 16 137/78 (97) 100 07/23/18 08:00 Mechanical Ventilator 07/23/18 08:00 30 07/23/18 07:55 109 07/23/18 07:15 102 16 30 07/23/18 05:21 111 12 30 07/23/18 04:00 30 07/23/18 04:00 103 07/23/18 04:00 30 07/23/18 04:00 98.4 107 13 125/75 (92) 100 07/23/18 04:00 Mechanical Ventilator 07/23/18 03:24 93 13 30 07/23/18 01:17 92 12 30 07/23/18 00:00 30 07/23/18 00:00 Mechanical Ventilator 07/23/18 00:00 98.1 110 14 147/89 (108) 99 07/23/18 00:00 114 1/11/19 23:12 91 11 30 07/22/18 21:30 95 12 30 07/22/18 20:00 Mechanical Ventilator 07/22/18 20:00 30 07/22/18 20:00 98.1 91 10 133/87 (102) 99 07/22/18 20:00 94 07/22/18 19:59 90 11 30 07/22/18 17:09 103 12 30 07/22/18 16:00 Mechanical Ventilator 07/22/18 16:00 30 07/22/18 16:00 97.5 100 12 124/94 (104) 99 07/22/18 16:00 103 07/22/18 15:29 106 12 30 07/22/18 13:30 121 13 30 07/22/18 12:00 97.5 119 12 125/85 (98) 98 07/22/18 12:00 Mechanical Ventilator 07/22/18 12:00 122 07/22/18 12:00 30 Height (Feet): 5 Height (Inches): 7.00 Weight (Pounds): 157 Objective Gen: NAD, Satting well on vent 30% O2 HEENT: NCAT, MMM, PERRL LUNGS: Coarse Left side decreased, No W CARDS: RRR, S1, S2, No M/R/G, ABD: Soft, NT, ND, + BS, PEG (No E/P) Laboratory Tests Test 07/23/18 04:00 White Blood Count 10.0 K/UL (4.8-10.8) Red Blood Count 3.08 M/UL (4.70-6.10) L Hemoglobin 8.9 G/DL (14.2-18.0) L Hematocrit 27.8 % (42.0-52.0) L Mean Corpuscular Volume 90 FL (80-99) Mean Corpuscular Hemoglobin 29.0 PG (27.0-31.0) Mean Corpuscular Hemoglobin Concent 32.2 G/DL (32.0-36.0) Red Cell Distribution Width 14.4 % (11.6-14.8) Platelet Count 258 K/UL (150-450) Mean Platelet Volume 5.5 FL (6.5-10.1) L Neutrophils (%) (Auto) 71.0 % (45.0-75.0) Lymphocytes (%) (Auto) 19.4 % (20.0-45.0) L Monocytes (%) (Auto) 5.6 % (1.0-10.0) Eosinophils (%) (Auto) 3.5 % (0.0-3.0) H Basophils (%) (Auto) 0.5 % (0.0-2.0) Sodium Level 138 MMOL/L (136-145) Potassium Level 3.1 MMOL/L (3.5-5.1) L Chloride Level 102 MMOL/L (98-107) Carbon Dioxide Level 29 MMOL/L (21-32) Anion Gap 7 mmol/L (5-15) Blood Urea Nitrogen 13 mg/dL (7-18) Creatinine 0.5 MG/DL (0.55-1.30) L Estimat Glomerular Filtration Rate > 60 mL/min (>60) Glucose Level 409 MG/DL (74-106) #H Calcium Level 8.4 MG/DL (8.5-10.1) L Total Bilirubin 0.2 MG/DL (0.2-1.0) Aspartate Amino Transf (AST/SGOT) 32 U/L (15-37) Alanine Aminotransferase (ALT/SGPT) 63 U/L (12-78) Alkaline Phosphatase 110 U/L (46-116) Pro-B-Type Natriuretic Peptide 388 pg/mL (0-125) H Total Protein 6.8 G/DL (6.4-8.2) Albumin 2.6 G/DL (3.4-5.0) L Globulin 4.2 g/dL Albumin/Globulin Ratio 0.6 (1.0-2.7) L Current Medications Medications (Trade) Dose Ordered Sig/Becca Route PRN Reason Start Time Stop Time Status Last Admin Dose Admin Acetaminophen (Tylenol) 650 mg Q6H PRN GT Mild Pain/Temp > 100.5 07/17/18 08:45 08/16/18 08:44 Atorvastatin Calcium (Lipitor) 40 mg BEDTIME GT 07/17/18 21:00 08/16/18 20:59 07/22/18 21:14 Bisacodyl (Dulcolax) 10 mg DAILYPRN PRN RECTAL Constipation 07/17/18 08:15 08/16/18 08:14 Chlorhexidine Gluconate (Lawanda-Hex 2%) 1 applic DAILY@2000 TOPIC 07/17/18 20:00 08/16/18 19:59 07/22/18 21:13 Dextrose/Sodium Chloride 1,000 ml @ 75 mls/hr [id number] IV 07/17/18 08:00 08/16/18 07:59 07/23/18 10:19 Docusate Sodium (Colace) 200 mg TWICE A DAY PRN NG Constipation 07/17/18 10:45 08/16/18 10:44 Guaifenesin (Robitussin) 100 mg Q24H PRN GT For Cough 07/17/18 08:15 08/16/18 08:14 Heparin Sodium (Porcine) (Heparin 5000 units/ml) 5,000 units EVERY 8 HOURS SUBQ 07/17/18 14:00 08/16/18 13:59 07/23/18 05:52 Lansoprazole (Prevacid) 30 mg DAILY GT 07/17/18 09:00 08/16/18 08:59 07/23/18 08:42 Magnesium Oxide (Mag-Ox 400mg) 400 mg DAILY GT 07/17/18 09:00 08/16/18 08:59 07/23/18 08:42 Midodrine (Pro-Amatine) 5 mg THREE TIMES A DAY GT 07/17/18 09:00 08/16/18 08:59 07/23/18 08:42 Piperacillin Sod/ Tazobactam Sod 3.375 gm/Dextrose 110 ml @ 27.5 mls/hr Q8H IVPB 07/17/18 11:00 07/24/18 10:59 07/23/18 10:19 Pyridoxine HCl (Vitamin B6) 100 mg DAILY GT 07/17/18 09:00 08/16/18 08:59 07/23/18 08:42 Sennosides (Senokot) 17.2 mg DAILY PRN GT Constipation 07/17/18 08:15 08/16/18 08:14 Vancomycin HCl (Vanco rx to dose) 1 ea DAILY MISC 07/17/18 09:00 08/16/18 08:59 Vancomycin HCl/ Dextrose 250 ml @ 166.667 mls/hr Q24H IVPB 07/20/18 09:00 07/25/18 08:59 07/23/18 09:03 Vitamin D (Vitamin D) 1,000 intlu DAILY ORAL 07/18/18 09:00 08/17/18 08:59 07/23/18 08:42 Julee Law M.D. Jul 23, 2018 11:23
--- NOTE | 2018-07-23 11:36 | NUR ---
NURSE NOTES: Rechecked patient's blood glucose via fingerstick: 7:43am BS206 and 11:34am BS105.
[2018-07-23 12:00] VITALS: BP 125/77
--- NOTE | 2018-07-23 12:36 | Cardiac Electrophysiology PN ---
Assessment/Plan Assessment/Plan 1. Troponin leak. The levels are flat. The patient is nonverbal. Likely due to dehydration. Echo EF 55% 2. VDRF, status post tracheostomy. 3. Dysphagia, status post percutaneous endoscopic gastrostomy placement. 4. Hypokalemia. 5. Azotemia.On iv fluid 6. Encephalopathy DW RN and mother Subjective Subjective Mother at bedside. On the vent. Has mild sinus tach Objective Last 24 Hour Vital Signs Date Time Temp Pulse Resp B/P (MAP) Pulse Ox O2 Delivery O2 Flow Rate FiO2 07/23/18 12:21 106 16 30 07/23/18 12:00 30 07/23/18 12:00 Mechanical Ventilator 07/23/18 12:00 99.7 104 16 125/77 (93) 98 07/23/18 11:29 104 07/23/18 09:01 105 16 30 07/23/18 08:00 98.1 109 16 137/78 (97) 100 07/23/18 08:00 Mechanical Ventilator 07/23/18 08:00 30 07/23/18 07:55 109 07/23/18 07:15 102 16 30 07/23/18 05:21 111 12 30 07/23/18 04:00 30 07/23/18 04:00 103 07/23/18 04:00 30 07/23/18 04:00 98.4 107 13 125/75 (92) 100 07/23/18 04:00 Mechanical Ventilator 07/23/18 03:24 93 13 30 07/23/18 01:17 92 12 30 07/23/18 00:00 30 07/23/18 00:00 Mechanical Ventilator 07/23/18 00:00 98.1 110 14 147/89 (108) 99 07/23/18 00:00 114 07/22/18 23:12 91 11 30 07/22/18 21:30 95 12 30 07/22/18 20:00 Mechanical Ventilator 07/22/18 20:00 30 07/22/18 20:00 98.1 91 10 133/87 (102) 99 07/22/18 20:00 94 07/22/18 19:59 90 11 30 07/22/18 17:09 103 12 30 07/22/18 16:00 Mechanical Ventilator 07/22/18 16:00 30 07/22/18 16:00 97.5 100 12 124/94 (104) 99 07/22/18 16:00 103 07/22/18 15:29 106 12 30 07/22/18 13:30 121 13 30 Intake and Output 07/22/18 07/23/18 19:00 07:00 Intake Total 2150.000 ml 1277.0 ml Output Total 1400 ml 1150 ml Balance 750.000 ml 127.0 ml Intake Free Water 290 ml 50 ml IV Total 1260.000 ml 777.0 ml Tube Feeding 600 ml 450 ml Output Urine Total 1400 ml 1150 ml # Bowel Movements 1 Laboratory Tests Test 07/23/18 04:00 White Blood Count 10.0 K/UL (4.8-10.8) Red Blood Count 3.08 M/UL (4.70-6.10) L Hemoglobin 8.9 G/DL (14.2-18.0) L Hematocrit 27.8 % (42.0-52.0) L Mean Corpuscular Volume 90 FL (80-99) Mean Corpuscular Hemoglobin 29.0 PG (27.0-31.0) Mean Corpuscular Hemoglobin Concent 32.2 G/DL (32.0-36.0) Red Cell Distribution Width 14.4 % (11.6-14.8) Platelet Count 258 K/UL (150-450) Mean Platelet Volume 5.5 FL (6.5-10.1) L Neutrophils (%) (Auto) 71.0 % (45.0-75.0) Lymphocytes (%) (Auto) 19.4 % (20.0-45.0) L Monocytes (%) (Auto) 5.6 % (1.0-10.0) Eosinophils (%) (Auto) 3.5 % (0.0-3.0) H Basophils (%) (Auto) 0.5 % (0.0-2.0) Sodium Level 138 MMOL/L (136-145) Potassium Level 3.1 MMOL/L (3.5-5.1) L Chloride Level 102 MMOL/L (98-107) Carbon Dioxide Level 29 MMOL/L (21-32) Anion Gap 7 mmol/L (5-15) Blood Urea Nitrogen 13 mg/dL (7-18) Creatinine 0.5 MG/DL (0.55-1.30) L Estimat Glomerular Filtration Rate > 60 mL/min (>60) Glucose Level 409 MG/DL (74-106) #H Calcium Level 8.4 MG/DL (8.5-10.1) L Total Bilirubin 0.2 MG/DL (0.2-1.0) Aspartate Amino Transf (AST/SGOT) 32 U/L (15-37) Alanine Aminotransferase (ALT/SGPT) 63 U/L (12-78) Alkaline Phosphatase 110 U/L (46-116) Pro-B-Type Natriuretic Peptide 388 pg/mL (0-125) H Total Protein 6.8 G/DL (6.4-8.2) Albumin 2.6 G/DL (3.4-5.0) L Globulin 4.2 g/dL Albumin/Globulin Ratio 0.6 (1.0-2.7) L Objective HEAD AND NECK: No JVD. Status post tracheostomy. LUNGS: Coarse rhonchi. CARDIOVASCULAR: Regular tachy S1 and S2 with no gallop. ABDOMEN: Status post PEG. EXTREMITIES: With no pitting edema. NEUROLOGIC: He is quadriplegic and nonverbal. Wale Severino MD Jul 23, 2018 12:36
--- NOTE | 2018-07-23 14:36 | Internal Med Progress Note ---
Subjective Date of Service: Jul 23, 2018 Physician Name Zeyad Simmons Attending Physician Wilner Suarez MD Current Medications Medications (Trade) Dose Ordered Sig/Becca Route PRN Reason Start Time Stop Time Status Last Admin Dose Admin Acetaminophen (Tylenol) 650 mg Q6H PRN GT Mild Pain/Temp > 100.5 07/17/18 08:45 08/16/18 08:44 Atorvastatin Calcium (Lipitor) 40 mg BEDTIME GT 07/17/18 21:00 08/16/18 20:59 07/22/18 21:14 Bisacodyl (Dulcolax) 10 mg DAILYPRN PRN RECTAL Constipation 07/17/18 08:15 08/16/18 08:14 Chlorhexidine Gluconate (Lawanda-Hex 2%) 1 applic DAILY@2000 TOPIC 07/17/18 20:00 08/16/18 19:59 07/22/18 21:13 Dextrose/Sodium Chloride 1,000 ml @ 75 mls/hr [id number] IV 07/17/18 08:00 08/16/18 07:59 07/23/18 10:19 Docusate Sodium (Colace) 200 mg TWICE A DAY PRN NG Constipation 07/17/18 10:45 08/16/18 10:44 Guaifenesin (Robitussin) 100 mg Q24H PRN GT For Cough 07/17/18 08:15 08/16/18 08:14 Heparin Sodium (Porcine) (Heparin 5000 units/ml) 5,000 units EVERY 8 HOURS SUBQ 07/17/18 14:00 08/16/18 13:59 07/23/18 13:10 Lansoprazole (Prevacid) 30 mg DAILY GT 07/17/18 09:00 08/16/18 08:59 07/23/18 08:42 Magnesium Oxide (Mag-Ox 400mg) 400 mg DAILY GT 07/17/18 09:00 08/16/18 08:59 07/23/18 08:42 Midodrine (Pro-Amatine) 5 mg THREE TIMES A DAY GT 07/17/18 09:00 08/16/18 08:59 07/23/18 13:08 Piperacillin Sod/ Tazobactam Sod 3.375 gm/Dextrose 110 ml @ 27.5 mls/hr Q8H IVPB 07/17/18 11:00 07/24/18 10:59 07/23/18 10:19 Pyridoxine HCl (Vitamin B6) 100 mg DAILY GT 07/17/18 09:00 08/16/18 08:59 07/23/18 08:42 Sennosides (Senokot) 17.2 mg DAILY PRN GT Constipation 07/17/18 08:15 08/16/18 08:14 Vitamin D (Vitamin D) 1,000 intlu DAILY ORAL 07/18/18 09:00 08/17/18 08:59 07/23/18 08:42 Allergies: Coded Allergies: FISH CONTAINING PRODUCTS (Verified Allergy, Unknown, Anaphylaxis, 07/20/18) Spoke to patient's mother SHELLFISH DERIVED (Verified Allergy, Unknown, Anaphylaxis, 07/20/18) Spoke to patient's mother ROS Limited/Unobtainable: Yes Subjective 52 YO M paraplegic with chronic vent dep admitted with Shortness of breath. Now LLL pneumonia and elevated troponin. On [facility] vent. Cover for Int Med-dr Suarez. DIANNE Objective Last Vital Signs Date Time Temp Pulse Resp B/P (MAP) Pulse Ox O2 Delivery O2 Flow Rate FiO2 07/23/18 12:38 110 16 30 07/23/18 12:00 Mechanical Ventilator 07/23/18 12:00 99.7 125/77 (93) 98 Laboratory Tests Test 07/23/18 04:00 White Blood Count 10.0 K/UL (4.8-10.8) Red Blood Count 3.08 M/UL (4.70-6.10) L Hemoglobin 8.9 G/DL (14.2-18.0) L Hematocrit 27.8 % (42.0-52.0) L Mean Corpuscular Volume 90 FL (80-99) Mean Corpuscular Hemoglobin 29.0 PG (27.0-31.0) Mean Corpuscular Hemoglobin Concent 32.2 G/DL (32.0-36.0) Red Cell Distribution Width 14.4 % (11.6-14.8) Platelet Count 258 K/UL (150-450) Mean Platelet Volume 5.5 FL (6.5-10.1) L Neutrophils (%) (Auto) 71.0 % (45.0-75.0) Lymphocytes (%) (Auto) 19.4 % (20.0-45.0) L Monocytes (%) (Auto) 5.6 % (1.0-10.0) Eosinophils (%) (Auto) 3.5 % (0.0-3.0) H Basophils (%) (Auto) 0.5 % (0.0-2.0) Sodium Level 138 MMOL/L (136-145) Potassium Level 3.1 MMOL/L (3.5-5.1) L Chloride Level 102 MMOL/L (98-107) Carbon Dioxide Level 29 MMOL/L (21-32) Anion Gap 7 mmol/L (5-15) Blood Urea Nitrogen 13 mg/dL (7-18) Creatinine 0.5 MG/DL (0.55-1.30) L Estimat Glomerular Filtration Rate > 60 mL/min (>60) Glucose Level 409 MG/DL (74-106) #H Calcium Level 8.4 MG/DL (8.5-10.1) L Total Bilirubin 0.2 MG/DL (0.2-1.0) Aspartate Amino Transf (AST/SGOT) 32 U/L (15-37) Alanine Aminotransferase (ALT/SGPT) 63 U/L (12-78) Alkaline Phosphatase 110 U/L (46-116) Pro-B-Type Natriuretic Peptide 388 pg/mL (0-125) H Total Protein 6.8 G/DL (6.4-8.2) Albumin 2.6 G/DL (3.4-5.0) L Globulin 4.2 g/dL Albumin/Globulin Ratio 0.6 (1.0-2.7) L Intake and Output 07/22/18 07/23/18 19:00 07:00 Intake Total 2150.000 ml 1277.0 ml Output Total 1400 ml 1150 ml Balance 750.000 ml 127.0 ml Intake Free Water 290 ml 50 ml IV Total 1260.000 ml 777.0 ml Tube Feeding 600 ml 450 ml Output Urine Total 1400 ml 1150 ml # Bowel Movements 1 Objective GENERAL: The patient is well-developed, well-nourished male, who is intubated. HEENT: Eyes, pupils equal and responsive to light and accommodation. Extraocular movements are intact. NECK: Tracheosotmy; Supple without lymphadenopathy. CHEST: Mech vent; Decreased breath sounds, left lower lobe. Otherwise, without wheezes or rales. CARDIOVASCULAR: Tachycardic, regular rhythm. S1 and S2 are normal without murmurs, rubs, gallops. ABDOMEN: Soft, nontender, and nondistended. Positive bowel sounds. No evidence of hepatosplenomegaly. Currently, no rebound or guarding noted. NEUROLOGICAL: The patient is paraplegic. Cranial nerves II through XII are grossly intact without focal deficits. Assessment/Plan Problem List: (1) Hypertension (2) Dysphagia Assessment & Plan: On G-tube feeds (3) Healthcare-associated pneumonia Assessment & Plan: Continue zosyn and vanco per pulmonary (4) Acute on chronic respiratory failure Assessment & Plan: Chronic vent dep-see pulmonary note. (5) Elevated troponin Assessment & Plan: see cardiology note. (6) Quadriplegia (7) Feeding by G-tube (8) NSTEMI (non-ST elevated myocardial infarction) Assessment & Plan: See cardiology note (9) Vegetative state Assessment/Plan Await acceptance to sub acute facility Zeyad Simmons MD Jul 23, 2018 14:36
[2018-07-23 16:00] VITALS: BP 121/75
--- NOTE | 2018-07-23 19:00 | NUR ---
NURSE NOTES: Received patient from MELECIO Mujica. Patient in bed and awake, but nonverbal. On Portex 6 AC 16 TV 550 Fi02 30% Peep 5. No SOB. color television console monitor in placed. Gtube feeding Osmolite 1.5 @ 50 cc/hour. Condom cath is draining well. ALEXA PICC asymptomatic. Family at bedside. Bed in lowest position with side rails up. Will continue to follow plan of care. Patient having low grade fever of 99.6F last Vital check, will recheck again.
--- NOTE | 2018-07-23 19:01 | NUR ---
HAND-OFF: Report given to MELECIO Roche. Patient is stable.
[2018-07-23 20:00] VITALS: BP 120/73
[2018-07-23] MEDS: Dyna-Hex 2% Top Sol 2oz TOPIC SCH (20:00)
--- NOTE | 2018-07-23 20:00 | NUR ---
NURSE NOTES: Patient repositioned, suctioned and provided oral care. Patient flacc score of 0/10. No acute distress at this time, mother of patient remains at bedside. Patients Temperature is now 98.4F. New linen applied. Will continue to monitor.
[2018-07-23] MEDS: Atorvastatin 20mg tab GT SCH (21:00)
--- NOTE | 2018-07-23 21:36 | Pulmonology Progress Note ---
Assessment/Plan Problems: (1) Acute on chronic respiratory failure (2) Healthcare-associated pneumonia (3) Sepsis (4) Feeding by G-tube (5) Quadriplegia (6) Vegetative state Respiratory: monitor respiratory rate Cardiac: continue to monitor HR/BP Renal: F/U I&O Gastrointestinal: continue feedings/current rate, hold feedings Endocrine: check HgA1C Neurologic: PRN Ativan Affect: PRN ativan Prophylaxis: Heparin Disposition: transfer to Notes Reviewed: manager market development, cardio Subjective ROS Limited/Unobtainable: Yes Constitutional: Reports: no symptoms Allergies: Coded Allergies: FISH CONTAINING PRODUCTS (Verified Allergy, Unknown, Anaphylaxis, 07/20/18) Spoke to patient's mother SHELLFISH DERIVED (Verified Allergy, Unknown, Anaphylaxis, 07/20/18) Spoke to patient's mother Objective Last 24 Hour Vital Signs Date Time Temp Pulse Resp B/P (MAP) Pulse Ox O2 Delivery O2 Flow Rate FiO2 07/23/18 21:10 75 16 30 07/23/18 19:15 80 16 30 07/23/18 17:00 101 16 30 07/23/18 16:00 Mechanical Ventilator 07/23/18 16:00 100.2 101 16 121/75 (90) 98 07/23/18 16:00 30 07/23/18 15:33 106 07/23/18 15:22 105 16 30 07/23/18 12:38 110 16 30 07/23/18 12:21 106 16 30 07/23/18 12:00 30 07/23/18 12:00 Mechanical Ventilator 07/23/18 12:00 99.7 104 16 125/77 (93) 98 07/23/18 11:29 104 07/23/18 09:01 105 16 30 07/23/18 08:00 98.1 109 16 137/78 (97) 100 07/23/18 08:00 Mechanical Ventilator 07/23/18 08:00 30 07/23/18 07:55 109 07/23/18 07:15 102 16 30 07/23/18 05:21 111 12 30 07/23/18 04:00 30 07/23/18 04:00 103 07/23/18 04:00 30 07/23/18 04:00 98.4 107 13 125/75 (92) 100 07/23/18 04:00 Mechanical Ventilator 07/23/18 03:24 93 13 30 07/23/18 01:17 92 12 30 07/23/18 00:00 30 07/23/18 00:00 Mechanical Ventilator 07/23/18 00:00 98.1 110 14 147/89 (108) 99 07/23/18 00:00 114 07/22/18 23:12 91 11 30 Intake and Output 07/22/18 07/23/18 18:59 06:59 Intake Total 2150.000 ml 1202.0 ml Output Total 1400 ml 1150 ml Balance 750.000 ml 52.0 ml Intake Free Water 290 ml 50 ml IV Total 1260.000 ml 702.0 ml Tube Feeding 600 ml 450 ml Output Urine Total 1400 ml 1150 ml # Bowel Movements 1 General Appearance: WD/WN HEENT: atraumatic, mucous membranes moist Respiratory/Chest: lungs clear, no accessory muscle use Cardiovascular: normal rate, no gallop/murmur Abdomen: no organomegaly, non distended Extremities: no clubbing Laboratory Tests 07/23/18 04:00: White Blood Count 10.0, Red Blood Count 3.08L, Hemoglobin 8.9L, Hematocrit 27.8L , Mean Corpuscular Volume 90, Mean Corpuscular Hemoglobin 29.0, Mean Corpuscular Hemoglobin Concent 32.2, Red Cell Distribution Width 14.4, Platelet Count 258, Mean Platelet Volume 5.5L, Neutrophils (%) (Auto) 71.0, Lymphocytes ( %) (Auto) 19.4L, Monocytes (%) (Auto) 5.6, Eosinophils (%) (Auto) 3.5H, Basophils (%) (Auto) 0.5, Sodium Level 138, Potassium Level 3.1L, Chloride Level 102, Carbon Dioxide Level 29, Anion Gap 7, Blood Urea Nitrogen 13, Creatinine 0.5L, Estimat Glomerular Filtration Rate > 60, Glucose Level 409#H, Calcium Level 8.4L, Total Bilirubin 0.2, Aspartate Amino Transf (AST/SGOT) 32, Alanine Aminotransferase (ALT/SGPT) 63, Alkaline Phosphatase 110, Pro-B-Type Natriuretic Peptide 388H, Total Protein 6.8, Albumin 2.6L, Globulin 4.2, Albumin /Globulin Ratio 0.6L Current Medications Medications (Trade) Dose Ordered Sig/Becca Route PRN Reason Start Time Stop Time Status Last Admin Dose Admin Acetaminophen (Tylenol) 650 mg Q6H PRN GT Mild Pain/Temp > 100.5 07/17/18 08:45 08/16/18 08:44 Atorvastatin Calcium (Lipitor) 40 mg BEDTIME GT 07/17/18 21:00 08/16/18 20:59 07/22/18 21:14 Bisacodyl (Dulcolax) 10 mg DAILYPRN PRN RECTAL Constipation 07/17/18 08:15 08/16/18 08:14 Chlorhexidine Gluconate (Lawanda-Hex 2%) 1 applic DAILY@2000 TOPIC 07/17/18 20:00 08/16/18 19:59 07/22/18 21:13 Dextrose/Sodium Chloride 1,000 ml @ 75 mls/hr [id number] IV 07/17/18 08:00 08/16/18 07:59 07/23/18 10:19 Docusate Sodium (Colace) 200 mg TWICE A DAY PRN NG Constipation 07/17/18 10:45 08/16/18 10:44 Guaifenesin (Robitussin) 100 mg Q24H PRN GT For Cough 07/17/18 08:15 08/16/18 08:14 Heparin Sodium (Porcine) (Heparin 5000 units/ml) 5,000 units EVERY 8 HOURS SUBQ 07/17/18 14:00 08/16/18 13:59 07/23/18 13:10 Lansoprazole (Prevacid) 30 mg DAILY GT 07/17/18 09:00 08/16/18 08:59 07/23/18 08:42 Magnesium Oxide (Mag-Ox 400mg) 400 mg DAILY GT 07/17/18 09:00 08/16/18 08:59 07/23/18 08:42 Midodrine (Pro-Amatine) 5 mg THREE TIMES A DAY GT 07/17/18 09:00 08/16/18 08:59 07/23/18 18:04 Piperacillin Sod/ Tazobactam Sod 3.375 gm/Dextrose 110 ml @ 27.5 mls/hr Q8H IVPB 07/17/18 11:00 07/24/18 10:59 07/23/18 18:04 Pyridoxine HCl (Vitamin B6) 100 mg DAILY GT 07/17/18 09:00 08/16/18 08:59 07/23/18 08:42 Sennosides (Senokot) 17.2 mg DAILY PRN GT Constipation 07/17/18 08:15 08/16/18 08:14 Vitamin D (Vitamin D) 1,000 intlu DAILY ORAL 07/18/18 09:00 08/17/18 08:59 07/23/18 08:42 Milena Ross MD Jul 23, 2018 21:36
[2018-07-24] VITALS: BP 125/74
--- NOTE | 2018-07-24 | NUR ---
NURSE NOTES: Repositioned, oral care done, and suctioned. 1 Normal BM. Patient cleaned. NAD, will continue to monitor.
[2018-07-24] MEDS: D5 1/2NS 1,000 ML IV SCH ×2 (00:11→12:44)
[2018-07-24] MEDS: Piperacillin/Tazobactam 3.375 GM in D5W 110 ML IVPB SCH (03:00)
[2018-07-24 04:00] VITALS: BP 128/70
[2018-07-24 05:42] LABS: BASOPHILS % (AUTO) 0.4 % (0.0-2.0); EOSINOPHILS % (AUTO) 2.9 % (0.0-3.0); HEMOGLOBIN 8.8 G/DL (14.2-18.0); LYMPHOCYTES % (AUTO) 22.4 % (20.0-45.0); MEAN CORPUSCULAR VOLUME 87 FL (80-99); MONOCYTES % (AUTO) 7.3 % (1.0-10.0); PLATELET COUNT 267 K/UL (150-450); RED BLOOD COUNT 3.09 M/UL (4.70-6.10); RED CELL DISTRIBUTION WIDTH 14.3 % (11.6-14.8); WHITE BLOOD COUNT 8.4 K/UL (4.8-10.8)
[2018-07-24 06:00] LABS: ANION GAP 6 mmol/L (5-15); BLOOD UREA NITROGEN 17 mg/dL (7-18); CALCIUM 9.1 MG/DL (8.5-10.1); CARBON DIOXIDE 30 MMOL/L (21-32); CHLORIDE 104 MMOL/L (98-107); CREATININE 0.5 MG/DL (0.55-1.30); PHOSPHORUS 2.8 MG/DL (2.5-4.9); POTASSIUM 3.4 MMOL/L (3.5-5.1); SODIUM 140 MMOL/L (136-145)
--- NOTE | 2018-07-24 06:00 | NUR ---
NURSE NOTES: Repositioned patient, all vitals stable, no fever.
[2018-07-24] MEDS: Heparin 5000 units/ml inj SUBQ SCH ×3 (06:08→21:42)
--- NOTE | 2018-07-24 07:02 | NUR ---
atient was received on vent settings of ACVC 16, 550 VT, 30%, PEEP +5. Pt is trached on a portex 6. Breath sounds are diminished. Thin, clear secretions SX PRN. Alarms are on and audible. Vent is plugged into red outlet. No respiratory distress noted. Will continue monitor throughout the day. Addendum: 07/24/18 at 0749 by ABIGAIL MARTINEZ RT *Patient
--- NOTE | 2018-07-24 07:15 | NUR ---
NURSE NOTES: Report received from Melchor King RN.Pt resting quietly in bed asleep noted no resp distress,with trach to vent,current settings tolerated well,no signs of pain or discomfort,SR on the monitor,GTF Osmolite 1.5 1t at 50 ml/hr,no residual noted ,condom cath out ,Pt incontinent of urine and stools,diarrhea like,skin warm and dry to touch,KARL PICC line intact ,,SR up x2 HOB elevated,bed lock in lowest position,mother at bedside,will continue with plans of care.
--- NOTE | 2018-07-24 07:49 | NUR ---
Social Service Note AC faxed patient's information as requested by Selena [phone], Case control ID #[id number]. Addendum: 07/24/18 at 0913 by OLESYA HARPER AC confirmed with Concha at [facility] [phone] that fax was received. Will await a decision.
[2018-07-24 08:00] VITALS: BP 120/70
[2018-07-24] MEDS: Vitamin D 1000 IU Tab ORAL SCH (08:46)
[2018-07-24] MEDS: Pyridoxine 50mg tab GT SCH (08:46)
[2018-07-24] MEDS: Magnesium Oxide 400mg tab GT SCH (08:47)
[2018-07-24 12:00] VITALS: BP 128/68
--- NOTE | 2018-07-24 13:00 | NUR ---
NURSE NOTES: pt stable no resp distress presented,mother at bedside.
--- NOTE | 2018-07-24 13:26 | Cardiac Electrophysiology PN ---
Assessment/Plan Assessment/Plan 1. Troponin leak. The levels are flat. The patient is nonverbal. Likely due to dehydration. Echo EF 55% 2. VDRF, status post tracheostomy. 3. Dysphagia, status post PEG 4. Hypokalemia. 5. Azotemia. 6. Encephalopathy DW RN Subjective Subjective On the vent. No events Objective Last 24 Hour Vital Signs Date Time Temp Pulse Resp B/P (MAP) Pulse Ox O2 Delivery O2 Flow Rate FiO2 07/24/18 13:00 98 16 30 07/24/18 12:00 30 07/24/18 12:00 98.2 98 16 128/68 (88) 99 07/24/18 12:00 Mechanical Ventilator 07/24/18 10:58 99 16 30 07/24/18 08:59 98 16 30 07/24/18 08:00 30 07/24/18 08:00 90 07/24/18 08:00 Mechanical Ventilator 07/24/18 08:00 98.0 89 16 120/70 (87) 99 07/24/18 06:52 89 16 30 07/24/18 05:16 90 16 30 07/24/18 04:00 30 07/24/18 04:00 98.4 82 16 128/70 (89) 100 07/24/18 04:00 82 07/24/18 04:00 Mechanical Ventilator 07/24/18 03:37 81 16 30 07/24/18 01:15 77 16 30 07/24/18 00:00 98.2 89 16 125/74 (91) 100 07/24/18 00:00 85 07/24/18 00:00 Mechanical Ventilator 07/24/18 00:00 30 07/23/18 23:10 85 16 30 07/23/18 21:10 75 16 30 07/23/18 20:00 Mechanical Ventilator 07/23/18 20:00 30 07/23/18 20:00 98.4 84 16 120/73 (89) 100 07/23/18 20:00 86 07/23/18 19:15 80 16 30 07/23/18 17:00 101 16 30 07/23/18 16:00 Mechanical Ventilator 07/23/18 16:00 100.2 101 16 121/75 (90) 98 07/23/18 16:00 30 07/23/18 15:33 106 07/23/18 15:22 105 16 30 Intake and Output 07/23/18 07/24/18 19:00 07:00 Intake Total 1721.916 ml 1431.25 ml Output Total 1200 ml 400 ml Balance 521.916 ml 1031.25 ml Intake Free Water 60 ml IV Total 1261.916 ml 881.25 ml Tube Feeding 400 ml 550 ml Output Urine Total 1200 ml 400 ml # Bowel Movements 2 Laboratory Tests Test 07/24/18 04:00 White Blood Count 8.4 K/UL (4.8-10.8) Red Blood Count 3.09 M/UL (4.70-6.10) L Hemoglobin 8.8 G/DL (14.2-18.0) L Hematocrit 27.0 % (42.0-52.0) L Mean Corpuscular Volume 87 FL (80-99) Mean Corpuscular Hemoglobin 28.5 PG (27.0-31.0) Mean Corpuscular Hemoglobin Concent 32.6 G/DL (32.0-36.0) Red Cell Distribution Width 14.3 % (11.6-14.8) Platelet Count 267 K/UL (150-450) Mean Platelet Volume 6.1 FL (6.5-10.1) L Neutrophils (%) (Auto) 67.0 % (45.0-75.0) Lymphocytes (%) (Auto) 22.4 % (20.0-45.0) Monocytes (%) (Auto) 7.3 % (1.0-10.0) Eosinophils (%) (Auto) 2.9 % (0.0-3.0) Basophils (%) (Auto) 0.4 % (0.0-2.0) Sodium Level 140 MMOL/L (136-145) Potassium Level 3.4 MMOL/L (3.5-5.1) L Chloride Level 104 MMOL/L (98-107) Carbon Dioxide Level 30 MMOL/L (21-32) Anion Gap 6 mmol/L (5-15) Blood Urea Nitrogen 17 mg/dL (7-18) Creatinine 0.5 MG/DL (0.55-1.30) L Estimat Glomerular Filtration Rate > 60 mL/min (>60) Glucose Level 142 MG/DL (74-106) #H Calcium Level 9.1 MG/DL (8.5-10.1) Phosphorus Level 2.8 MG/DL (2.5-4.9) Magnesium Level 2.2 MG/DL (1.8-2.4) Objective HEAD AND NECK: No JVD. Status post tracheostomy. LUNGS: Coarse rhonchi. CARDIOVASCULAR: Regular tachy S1 and S2 with no gallop. ABDOMEN: Status post PEG. EXTREMITIES: With no pitting edema. NEUROLOGIC: He is quadriplegic and nonverbal. Wale Severino MD Jul 24, 2018 13:26
--- NOTE | 2018-07-24 14:59 | NUR ---
Social Service Note Referral faxed to [facility]. AC spoke with Addie [phone], patient information faxed to [phone].
--- NOTE | 2018-07-24 15:40 | Pulmonology Progress Note ---
Assessment/Plan Problems: (1) Acute on chronic respiratory failure (2) Healthcare-associated pneumonia (3) Sepsis (4) Feeding by G-tube (5) Quadriplegia (6) Vegetative state Respiratory: monitor respiratory rate, adjust FIO2 Cardiac: continue to monitor HR/BP Renal: F/U I&O Infectious Disease: check cultures Gastrointestinal: continue feedings/current rate Endocrine: monitor blood sugar, check HgA1C Neurologic: PRN Ativan Affect: PRN ativan Prophylaxis: Protonix Disposition: keep in ICU Notes Reviewed: air saw operator, cardio Discussed with: nurses, consultants Subjective ROS Limited/Unobtainable: Yes Constitutional: Reports: no symptoms HEENT: Repors: no symptoms Allergies: Coded Allergies: FISH CONTAINING PRODUCTS (Verified Allergy, Unknown, Anaphylaxis, 07/20/18) Spoke to patient's mother SHELLFISH DERIVED (Verified Allergy, Unknown, Anaphylaxis, 07/20/18) Spoke to patient's mother Objective Last 24 Hour Vital Signs Date Time Temp Pulse Resp B/P (MAP) Pulse Ox O2 Delivery O2 Flow Rate FiO2 07/24/18 15:11 90 16 30 07/24/18 13:00 98 16 30 07/24/18 12:00 30 07/24/18 12:00 96 07/24/18 12:00 98.2 98 16 128/68 (88) 99 07/24/18 12:00 Mechanical Ventilator 07/24/18 10:58 99 16 30 07/24/18 08:59 98 16 30 07/24/18 08:00 30 07/24/18 08:00 90 07/24/18 08:00 Mechanical Ventilator 07/24/18 08:00 98.0 89 16 120/70 (87) 99 07/24/18 06:52 89 16 30 07/24/18 05:16 90 16 30 07/24/18 04:00 30 07/24/18 04:00 98.4 82 16 128/70 (89) 100 07/24/18 04:00 82 07/24/18 04:00 Mechanical Ventilator 07/24/18 03:37 81 16 30 07/24/18 01:15 77 16 30 07/24/18 00:00 98.2 89 16 125/74 (91) 100 07/24/18 00:00 85 07/24/18 00:00 Mechanical Ventilator 07/24/18 00:00 30 07/23/18 23:10 85 16 30 07/23/18 21:10 75 16 30 07/23/18 20:00 Mechanical Ventilator 07/23/18 20:00 30 07/23/18 20:00 98.4 84 16 120/73 (89) 100 07/23/18 20:00 86 07/23/18 19:15 80 16 30 07/23/18 17:00 101 16 30 07/23/18 16:00 Mechanical Ventilator 07/23/18 16:00 100.2 101 16 121/75 (90) 98 07/23/18 16:00 30 Intake and Output 07/23/18 07/24/18 19:00 07:00 Intake Total 1721.916 ml 1431.25 ml Output Total 1200 ml 400 ml Balance 521.916 ml 1031.25 ml Intake Free Water 60 ml IV Total 1261.916 ml 881.25 ml Tube Feeding 400 ml 550 ml Output Urine Total 1200 ml 400 ml # Bowel Movements 2 General Appearance: WD/WN HEENT: normocephalic, atraumatic Respiratory/Chest: chest wall non-tender, lungs clear Cardiovascular: normal peripheral pulses, regular rhythm Abdomen: normal bowel sounds, soft, non tender Genitourinary: normal external genitalia Skin: no ulcers Lymphatic: no neck adenopathy Laboratory Tests 07/24/18 04:00: White Blood Count 8.4, Red Blood Count 3.09L, Hemoglobin 8.8L, Hematocrit 27.0L , Mean Corpuscular Volume 87, Mean Corpuscular Hemoglobin 28.5, Mean Corpuscular Hemoglobin Concent 32.6, Red Cell Distribution Width 14.3, Platelet Count 267, Mean Platelet Volume 6.1L, Neutrophils (%) (Auto) 67.0, Lymphocytes ( %) (Auto) 22.4, Monocytes (%) (Auto) 7.3, Eosinophils (%) (Auto) 2.9, Basophils (%) (Auto) 0.4, Sodium Level 140, Potassium Level 3.4L, Chloride Level 104, Carbon Dioxide Level 30, Anion Gap 6, Blood Urea Nitrogen 17, Creatinine 0.5L, Estimat Glomerular Filtration Rate > 60, Glucose Level 142#H, Calcium Level 9.1 , Phosphorus Level 2.8, Magnesium Level 2.2 Current Medications Medications (Trade) Dose Ordered Sig/Becca Route PRN Reason Start Time Stop Time Status Last Admin Dose Admin Acetaminophen (Tylenol) 650 mg Q6H PRN GT Mild Pain/Temp > 100.5 07/17/18 08:45 08/16/18 08:44 Atorvastatin Calcium (Lipitor) 40 mg BEDTIME GT 07/17/18 21:00 08/16/18 20:59 07/23/18 21:00 Bisacodyl (Dulcolax) 10 mg DAILYPRN PRN RECTAL Constipation 07/17/18 08:15 08/16/18 08:14 Chlorhexidine Gluconate (Lawanda-Hex 2%) 1 applic DAILY@2000 TOPIC 07/17/18 20:00 08/16/18 19:59 07/23/18 20:00 Dextrose/Sodium Chloride 1,000 ml @ 75 mls/hr [id number] IV 07/17/18 08:00 08/16/18 07:59 07/24/18 00:11 Docusate Sodium (Colace) 200 mg TWICE A DAY PRN NG Constipation 07/17/18 10:45 08/16/18 10:44 Guaifenesin (Robitussin) 100 mg Q24H PRN GT For Cough 07/17/18 08:15 08/16/18 08:14 Heparin Sodium (Porcine) (Heparin 5000 units/ml) 5,000 units EVERY 8 HOURS SUBQ 07/17/18 14:00 08/16/18 13:59 07/24/18 13:46 Lansoprazole (Prevacid) 30 mg DAILY GT 07/17/18 09:00 08/16/18 08:59 07/24/18 08:47 Magnesium Oxide (Mag-Ox 400mg) 400 mg DAILY GT 07/17/18 09:00 08/16/18 08:59 07/24/18 08:47 Midodrine (Pro-Amatine) 5 mg THREE TIMES A DAY GT 07/17/18 09:00 08/16/18 08:59 07/24/18 12:44 Pyridoxine HCl (Vitamin B6) 100 mg DAILY GT 07/17/18 09:00 08/16/18 08:59 07/24/18 08:46 Sennosides (Senokot) 17.2 mg DAILY PRN GT Constipation 07/17/18 08:15 08/16/18 08:14 Vitamin D (Vitamin D) 1,000 intlu DAILY ORAL 07/18/18 09:00 08/17/18 08:59 07/24/18 08:46 Milena Ross MD Jul 24, 2018 15:40
[2018-07-24 16:00] VITALS: BP 119/69
--- NOTE | 2018-07-24 16:20 | Internal Med Progress Note ---
Subjective Date of Service: Jul 24, 2018 Physician Name Zeyad Simmons Attending Physician Wilner Suarez MD Current Medications Medications (Trade) Dose Ordered Sig/Becca Route PRN Reason Start Time Stop Time Status Last Admin Dose Admin Acetaminophen (Tylenol) 650 mg Q6H PRN GT Mild Pain/Temp > 100.5 07/17/18 08:45 08/16/18 08:44 Atorvastatin Calcium (Lipitor) 40 mg BEDTIME GT 07/17/18 21:00 08/16/18 20:59 07/23/18 21:00 Bisacodyl (Dulcolax) 10 mg DAILYPRN PRN RECTAL Constipation 07/17/18 08:15 08/16/18 08:14 Chlorhexidine Gluconate (Lawanda-Hex 2%) 1 applic DAILY@2000 TOPIC 07/17/18 20:00 08/16/18 19:59 07/23/18 20:00 Dextrose/Sodium Chloride 1,000 ml @ 75 mls/hr [id number] IV 07/17/18 08:00 08/16/18 07:59 07/24/18 00:11 Docusate Sodium (Colace) 200 mg TWICE A DAY PRN NG Constipation 07/17/18 10:45 08/16/18 10:44 Guaifenesin (Robitussin) 100 mg Q24H PRN GT For Cough 07/17/18 08:15 08/16/18 08:14 Heparin Sodium (Porcine) (Heparin 5000 units/ml) 5,000 units EVERY 8 HOURS SUBQ 07/17/18 14:00 08/16/18 13:59 07/24/18 13:46 Lansoprazole (Prevacid) 30 mg DAILY GT 07/17/18 09:00 08/16/18 08:59 07/24/18 08:47 Magnesium Oxide (Mag-Ox 400mg) 400 mg DAILY GT 07/17/18 09:00 08/16/18 08:59 07/24/18 08:47 Midodrine (Pro-Amatine) 5 mg THREE TIMES A DAY GT 07/17/18 09:00 08/16/18 08:59 07/24/18 12:44 Pyridoxine HCl (Vitamin B6) 100 mg DAILY GT 07/17/18 09:00 08/16/18 08:59 07/24/18 08:46 Sennosides (Senokot) 17.2 mg DAILY PRN GT Constipation 07/17/18 08:15 08/16/18 08:14 Vitamin D (Vitamin D) 1,000 intlu DAILY ORAL 07/18/18 09:00 08/17/18 08:59 07/24/18 08:46 Allergies: Coded Allergies: FISH CONTAINING PRODUCTS (Verified Allergy, Unknown, Anaphylaxis, 07/20/18) Spoke to patient's mother SHELLFISH DERIVED (Verified Allergy, Unknown, Anaphylaxis, 07/20/18) Spoke to patient's mother ROS Limited/Unobtainable: Yes Subjective 52 YO M paraplegic with chronic vent dep admitted with Shortness of breath. Now LLL pneumonia and elevated troponin. On [facility] vent. Cover for Int Med-dr Suarez. DIANNE Objective Last Vital Signs Date Time Temp Pulse Resp B/P (MAP) Pulse Ox O2 Delivery O2 Flow Rate FiO2 07/24/18 16:11 Mechanical Ventilator 07/24/18 16:10 96 07/24/18 16:10 30 07/24/18 15:11 16 07/24/18 12:00 98.2 128/68 (88) 99 Laboratory Tests Test 07/24/18 04:00 White Blood Count 8.4 K/UL (4.8-10.8) Red Blood Count 3.09 M/UL (4.70-6.10) L Hemoglobin 8.8 G/DL (14.2-18.0) L Hematocrit 27.0 % (42.0-52.0) L Mean Corpuscular Volume 87 FL (80-99) Mean Corpuscular Hemoglobin 28.5 PG (27.0-31.0) Mean Corpuscular Hemoglobin Concent 32.6 G/DL (32.0-36.0) Red Cell Distribution Width 14.3 % (11.6-14.8) Platelet Count 267 K/UL (150-450) Mean Platelet Volume 6.1 FL (6.5-10.1) L Neutrophils (%) (Auto) 67.0 % (45.0-75.0) Lymphocytes (%) (Auto) 22.4 % (20.0-45.0) Monocytes (%) (Auto) 7.3 % (1.0-10.0) Eosinophils (%) (Auto) 2.9 % (0.0-3.0) Basophils (%) (Auto) 0.4 % (0.0-2.0) Sodium Level 140 MMOL/L (136-145) Potassium Level 3.4 MMOL/L (3.5-5.1) L Chloride Level 104 MMOL/L (98-107) Carbon Dioxide Level 30 MMOL/L (21-32) Anion Gap 6 mmol/L (5-15) Blood Urea Nitrogen 17 mg/dL (7-18) Creatinine 0.5 MG/DL (0.55-1.30) L Estimat Glomerular Filtration Rate > 60 mL/min (>60) Glucose Level 142 MG/DL (74-106) #H Calcium Level 9.1 MG/DL (8.5-10.1) Phosphorus Level 2.8 MG/DL (2.5-4.9) Magnesium Level 2.2 MG/DL (1.8-2.4) Intake and Output 07/23/18 07/24/18 19:00 07:00 Intake Total 1721.916 ml 1481.25 ml Output Total 1200 ml 400 ml Balance 521.916 ml 1081.25 ml Intake Free Water 60 ml IV Total 1261.916 ml 881.25 ml Tube Feeding 400 ml 600 ml Output Urine Total 1200 ml 400 ml # Bowel Movements 2 Objective GENERAL: The patient is well-developed, well-nourished male, who is intubated. HEENT: Eyes, pupils equal and responsive to light and accommodation. Extraocular movements are intact. NECK: Tracheosotmy; Supple without lymphadenopathy. CHEST: Mech vent; Decreased breath sounds, left lower lobe. Otherwise, without wheezes or rales. CARDIOVASCULAR: Tachycardic, regular rhythm. S1 and S2 are normal without murmurs, rubs, gallops. ABDOMEN: Soft, nontender, and nondistended. Positive bowel sounds. No evidence of hepatosplenomegaly. Currently, no rebound or guarding noted. NEUROLOGICAL: The patient is paraplegic. Cranial nerves II through XII are grossly intact without focal deficits. Assessment/Plan Problem List: (1) Hypertension (2) Dysphagia Assessment & Plan: On G-tube feeds (3) Healthcare-associated pneumonia Assessment & Plan: Continue zosyn and vanco per pulmonary (4) Acute on chronic respiratory failure Assessment & Plan: Chronic vent dep-see pulmonary note. (5) Elevated troponin Assessment & Plan: see cardiology note. (6) Quadriplegia (7) Feeding by G-tube (8) NSTEMI (non-ST elevated myocardial infarction) Assessment & Plan: See cardiology note (9) Vegetative state Assessment/Plan Await acceptance to sub acute facility Zeyad Simmons MD Jul 24, 2018 16:20
[2018-07-24] MEDS ORDERED: D5 1/2NS 1000ml IV ONE (16:32)
--- NOTE | 2018-07-24 19:30 | NUR ---
NURSE NOTES: Report received from Lexi Mims RN. Observed pt lying on the bed. Awake but non-verbal. is able to speak with his mom by using letter board, primary language is Serbian. No signs of pain noted. SR with school lunch monitor. Trach on vent, portex 6, AC 16, TD 550, FIO2 30%, PEEP 5, saturating at 100%. Gtube site intact and patent, running Osmolite 1.5 at 50cc/hr, no residual noted. Condom catheter intact and draining well. PICC line on KARL running D5 1/2NS at 75cc/hr. Family member at the bedside. Bed in the lowest position. Side rails up x3. Will continue to monitor.
--- NOTE | 2018-07-24 19:37 | NUR ---
HAND-OFF: Report given to Fawad Paulino RN,pt remains stable no resp dsitress presented during the shift.
[2018-07-24 20:00] VITALS: BP 120/62
[2018-07-24] MEDS: Dyna-Hex 2% Top Sol 2oz TOPIC SCH (20:00)
[2018-07-24] MEDS: Atorvastatin 20mg tab GT SCH (21:39)
[2018-07-25] VITALS: BP 121/74
[2018-07-25] MEDS: D5 1/2NS 1,000 ML IV SCH (02:53)
[2018-07-25 04:00] VITALS: BP 121/74
[2018-07-25 05:11] LABS: ANION GAP 12 mmol/L (5-15); BLOOD UREA NITROGEN 13 mg/dL (7-18); CALCIUM 8.3 MG/DL (8.5-10.1); CARBON DIOXIDE 24 MMOL/L (21-32); CHLORIDE 107 MMOL/L (98-107); CREATININE 0.5 MG/DL (0.55-1.30); SODIUM 143 MMOL/L (136-145)
[2018-07-25 05:34] LABS: HEMATOCRIT 17.8 % (42.0-52.0); MEAN CORPUSCULAR VOLUME 87 FL (80-99); PLATELET COUNT 266 K/UL (150-450); RED BLOOD COUNT 2.06 M/UL (4.70-6.10); RED CELL DISTRIBUTION WIDTH 13.9 % (11.6-14.8); WHITE BLOOD COUNT 10.4 K/UL (4.8-10.8)
[2018-07-25 05:53] LABS: HEMOGLOBIN 5.9 G/DL (14.2-18.0)
[2018-07-25] MEDS: Heparin 5000 units/ml inj SUBQ SCH ×3 (05:54→21:41)
--- NOTE | 2018-07-25 06:20 | NUR ---
NURSE NOTES: Left message to regarding pt hgb and K. Awaiting for a call back.
--- NOTE | 2018-07-25 06:55 | NUR ---
RESPIRATORY NOTE: Received pt on trach Portex 6, secured by trach tie, with current vent setting: [id number]- 30% FiO2- peep of 5, saturates at 100%. No SOB or acute resp distress noted. Circuits are secured and out of the way.Alarms are set and audible, vent is plugged into the red outlet, ambu bag and spare trach at bedside. Will continue to monitor and suction as needed.
--- NOTE | 2018-07-25 07:00 | NUR ---
NURSE NOTES: New order received from and endorsed to morning nurse.
--- NOTE | 2018-07-25 07:30 | NUR ---
HAND-OFF: Report given to MELECIO Parker. Observed pt sleeping on the bed. No acute distress noted.
--- NOTE | 2018-07-25 07:31 | NUR ---
NURSE NOTES: Received patient in bed. In no apparent distress. Vent dependent. On GTF as tolerated. Patient's mother at bedside. Will continue plan of care.
[2018-07-25 08:00] VITALS: BP 131/77
[2018-07-25 08:34] LABS: BASOPHILS % (AUTO) 0.3 % (0.0-2.0); EOSINOPHILS % (AUTO) 2.1 % (0.0-3.0); HEMATOCRIT 28.2 % (42.0-52.0); HEMOGLOBIN 9.3 G/DL (14.2-18.0); LYMPHOCYTES % (AUTO) 20.8 % (20.0-45.0); MEAN CORPUSCULAR VOLUME 87 FL (80-99); MONOCYTES % (AUTO) 7.2 % (1.0-10.0); NEUTROPHILS % (AUTO) 69.6 % (45.0-75.0); PLATELET COUNT 277 K/UL (150-450); RED BLOOD COUNT 3.25 M/UL (4.70-6.10); RED CELL DISTRIBUTION WIDTH 14.3 % (11.6-14.8); WHITE BLOOD COUNT 10.5 K/UL (4.8-10.8)
[2018-07-25] MEDS: Magnesium Oxide 400mg tab GT SCH (09:06)
[2018-07-25] MEDS: Pyridoxine 50mg tab GT SCH (09:06)
[2018-07-25] MEDS: Vitamin D 1000 IU Tab ORAL SCH (09:10)
--- NOTE | 2018-07-25 10:14 | NUR ---
Social Service Note SW followed with Barbara from [place] [phone]. Barbara requested for referral to be faxed to [phone]. CM will follow up with available bed.
--- NOTE | 2018-07-25 11:18 | NUR ---
RD ASSESSMENT & RECOMMENDATIONS SEE CARE ACTIVITY FOR COMPLETE ASSESSMENT DAILY ESTIMATED NEEDS: Needs based on Critical care, paraplegia, TF [employer] 72.7kg 20-25 kcals/kg 1815-6288 total kcals 1.2-1.5 g protein/kg 87-109 g total protein 20-30 mL/kg 2496-0794 total fluid mLs NUTRITION DIAGNOSIS: * Swallowing difficulty r/t respiratory status as evidenced by pt w/ h/o spinal cord injury, paraplegia, trach dep and PEG dep. * Altered nutrition related lab values R/T hyperglycemia as evidenced by elev BGs (85 [phone]) CURRENT TF:Osmolite 1.5 @50ml/hr x20 hrs ENTERAL NUTRITION RECOMMENDATIONS: Glucerna 1.5 @ 45ml/hr x 24 hrs to provide 1080ml, 1620kcal, 89g prot, 820ml free water - Rec TF change to GLUCERNA 1.5 for improved glycemic control - Initiate Glucerna 1.5 @ 25ml/hr x 6hrs, advance 10ml q 4-6 hrs as tolerated to goal rate. - Flush per MD/ HOB over 30 degrees ADDITIONAL RECOMMENDATIONS: 1) Obtain weekly Calibrated bed scale wts 2) Check lytes daily/ replete as needed (Low K- 3.0) 3) DC D5 IVF- TF @ goal, hyperglycemia 4) Rec accucheck w/ SSI- hyperglycemia 5) TF change to carb controlled TF formula- see above
--- NOTE | 2018-07-25 11:52 | Pulmonology Progress Note ---
Assessment/Plan Problems: (1) Acute on chronic respiratory failure (2) Healthcare-associated pneumonia (3) Sepsis (4) Feeding by G-tube (5) Quadriplegia (6) Vegetative state Respiratory: monitor respiratory rate, adjust FIO2, CXR Cardiac: continue to monitor HR/BP Renal: F/U I&O, keep IV fluid Infectious Disease: continue antibiotics Gastrointestinal: hold feedings Endocrine: monitor blood sugar Hematologic: monitor H/H, transfuse if hgb<8.5 Neurologic: PRN Morphine, keep patient comfortable Prophylaxis: Protonix Notes Reviewed: client services analyst, renal Discussed with: consultants, ed case manager Subjective ROS Limited/Unobtainable: Yes Constitutional: Reports: no symptoms Allergies: Coded Allergies: FISH CONTAINING PRODUCTS (Verified Allergy, Unknown, Anaphylaxis, 07/20/18) Spoke to patient's mother SHELLFISH DERIVED (Verified Allergy, Unknown, Anaphylaxis, 07/20/18) Spoke to patient's mother Objective Last 24 Hour Vital Signs Date Time Temp Pulse Resp B/P (MAP) Pulse Ox O2 Delivery O2 Flow Rate FiO2 07/25/18 11:20 101 16 30 07/25/18 09:00 113 16 30 07/25/18 08:00 30 07/25/18 08:00 Mechanical Ventilator 07/25/18 08:00 97.9 112 20 131/77 (95) 100 07/25/18 07:42 108 07/25/18 06:55 109 16 30 07/25/18 04:58 86 16 30 07/25/18 04:00 Mechanical Ventilator 07/25/18 04:00 88 07/25/18 04:00 98.2 83 16 121/74 (90) 100 07/25/18 04:00 30 07/25/18 03:23 84 16 30 07/25/18 01:30 77 16 30 07/25/18 00:00 96 07/25/18 00:00 Mechanical Ventilator 07/25/18 00:00 97.0 87 16 121/74 (90) 100 07/24/18 23:04 88 18 30 07/24/18 20:48 88 16 30 07/24/18 20:00 Mechanical Ventilator 07/24/18 20:00 97.9 92 16 120/62 (81) 100 07/24/18 20:00 30 07/24/18 20:00 96 07/24/18 19:21 89 16 30 07/24/18 16:44 100 18 30 07/24/18 16:11 Mechanical Ventilator 07/24/18 16:10 96 07/24/18 16:10 30 07/24/18 16:00 98.4 97 18 119/69 (86) 97 07/24/18 15:11 90 16 30 07/24/18 13:00 98 16 30 07/24/18 12:00 30 07/24/18 12:00 96 07/24/18 12:00 98.2 98 16 128/68 (88) 99 07/24/18 12:00 Mechanical Ventilator Intake and Output 07/24/18 07/25/18 19:00 07:00 Intake Total 1615 ml 835 ml Output Total 1001 ml 1000 ml Balance 614 ml -165 ml Intake Free Water 200 ml 110 ml IV Total 525 ml 375 ml Tube Feeding 650 ml 350 ml Other 240 ml Output Urine Total 1000 ml 1000 ml Stool Total 1 ml # Bowel Movements 2 3 General Appearance: WD/WN HEENT: atraumatic, mucous membranes moist Respiratory/Chest: chest wall non-tender, lungs clear, chest wall tender Cardiovascular: normal rate Abdomen: normal bowel sounds, no mass Extremities: no clubbing Skin: no ulcers Laboratory Tests 07/25/18 03:30: White Blood Count 10.4, Red Blood Count 2.06L, Hemoglobin 5.9#*L, Hematocrit 17.8#L, Mean Corpuscular Volume 87, Mean Corpuscular Hemoglobin 28.7, Mean Corpuscular Hemoglobin Concent 33.1, Red Cell Distribution Width 13.9, Platelet Count 266, Mean Platelet Volume 5.7L, Neutrophils (%) (Auto) , Lymphocytes (%) ( Auto) , Monocytes (%) (Auto) , Eosinophils (%) (Auto) , Basophils (%) (Auto) , Differential Total Cells Counted 100, Neutrophils % (Manual) 68, Lymphocytes % ( Manual) 23, Monocytes % (Manual) 4, Eosinophils % (Manual) 5H, Basophils % ( Manual) 0, Band Neutrophils 0, Platelet Estimate Adequate, Platelet Morphology Normal, Hypochromasia 1+, Sodium Level 143, Potassium Level 3.0L, Chloride Level 107, Carbon Dioxide Level 24, Anion Gap 12, Blood Urea Nitrogen 13, Creatinine 0.5L, Estimat Glomerular Filtration Rate > 60, Glucose Level 85, Calcium Level 8.3L 07/25/18 08:10: White Blood Count 10.5, Red Blood Count 3.25L, Hemoglobin 9.3#L, Hematocrit 28.2 #L, Mean Corpuscular Volume 87, Mean Corpuscular Hemoglobin 28.7, Mean Corpuscular Hemoglobin Concent 33.2, Red Cell Distribution Width 14.3, Platelet Count 277, Mean Platelet Volume 5.9L, Neutrophils (%) (Auto) 69.6, Lymphocytes ( %) (Auto) 20.8, Monocytes (%) (Auto) 7.2, Eosinophils (%) (Auto) 2.1, Basophils (%) (Auto) 0.3 Current Medications Medications (Trade) Dose Ordered Sig/Becca Route PRN Reason Start Time Stop Time Status Last Admin Dose Admin Acetaminophen (Tylenol) 650 mg Q6H PRN GT Mild Pain/Temp > 100.5 07/17/18 08:45 08/16/18 08:44 Atorvastatin Calcium (Lipitor) 40 mg BEDTIME GT 07/17/18 21:00 08/16/18 20:59 07/24/18 21:39 Bisacodyl (Dulcolax) 10 mg DAILYPRN PRN RECTAL Constipation 07/17/18 08:15 08/16/18 08:14 Chlorhexidine Gluconate (Lawanda-Hex 2%) 1 applic DAILY@2000 TOPIC 07/17/18 20:00 08/16/18 19:59 07/24/18 20:00 Dextrose/Sodium Chloride 1,000 ml @ 75 mls/hr [id number] IV 07/17/18 08:00 08/16/18 07:59 07/25/18 02:53 Docusate Sodium (Colace) 200 mg TWICE A DAY PRN NG Constipation 07/17/18 10:45 08/16/18 10:44 Guaifenesin (Robitussin) 100 mg Q24H PRN GT For Cough 07/17/18 08:15 08/16/18 08:14 Heparin Sodium (Porcine) (Heparin 5000 units/ml) 5,000 units EVERY 8 HOURS SUBQ 07/17/18 14:00 08/16/18 13:59 07/25/18 05:54 Lansoprazole (Prevacid) 30 mg DAILY GT 07/17/18 09:00 08/16/18 08:59 07/25/18 09:06 Magnesium Oxide (Mag-Ox 400mg) 400 mg DAILY GT 07/17/18 09:00 08/16/18 08:59 07/25/18 09:06 Midodrine (Pro-Amatine) 5 mg THREE TIMES A DAY GT 07/17/18 09:00 08/16/18 08:59 07/25/18 09:06 Potassium Chloride (K-Dur) 40 meq ONCE GT 07/25/18 08:00 08/24/18 07:59 07/25/18 09:07 Pyridoxine HCl (Vitamin B6) 100 mg DAILY GT 07/17/18 09:00 08/16/18 08:59 07/25/18 09:06 Sennosides (Senokot) 17.2 mg DAILY PRN GT Constipation 07/17/18 08:15 08/16/18 08:14 Vitamin D (Vitamin D) 1,000 intlu DAILY ORAL 07/18/18 09:00 08/17/18 08:59 07/25/18 09:10 Milena Ross MD Jul 25, 2018 11:52
[2018-07-25 12:00] VITALS: BP 123/73
--- NOTE | 2018-07-25 13:03 | Infectious Diseases Prog Note ---
Assessment/Plan Assessment/Plan 52 yo male with PMHx of Vent dependence, Dysphagia s/p PEG, Parapelgia, and HTN who was sent to the ED [facility] for fever and increased respiratory disteress. Sepsis - resolved PNA vs UTI UA (+) 07/16 Urine Cx 07/17 - Multiple organisms not worked up 07/16/18 Blood Cx (NGTD) CXR 07/23: 1. Persistent patchy opacities at the periphery of the left lung base and retrocardiac region, unchanged. 2. Unchanged mildly prominent interstitial markings. 3. Possible small left pleural effusion. CXR 07/16 - LLL Collapse Vent dependent sp trach Dysphagia s/p PEG Parapelgia HTN Lumbar laminectomy. Plan -COntinue to monitor off abx -05/23 SP Vancomcyin #7 and zosyn #7 - Monitor CBC and Temps Thank you for this consult. We will continue to follow the patient during this hospitalization. Subjective Allergies: Coded Allergies: FISH CONTAINING PRODUCTS (Verified Allergy, Unknown, Anaphylaxis, 07/20/18) Spoke to patient's mother SHELLFISH DERIVED (Verified Allergy, Unknown, Anaphylaxis, 07/20/18) Spoke to patient's mother Subjective afebrile in >36jrs no leukocytosis MV, fio2 30% Objective Vital Signs Last 24 Hour Vital Signs Date Time Temp Pulse Resp B/P (MAP) Pulse Ox O2 Delivery O2 Flow Rate FiO2 07/25/18 11:20 101 16 30 07/25/18 09:00 113 16 30 07/25/18 08:00 30 07/25/18 08:00 Mechanical Ventilator 07/25/18 08:00 97.9 112 20 131/77 (95) 100 07/25/18 07:42 108 07/25/18 06:55 109 16 30 07/25/18 04:58 86 16 30 07/25/18 04:00 Mechanical Ventilator 07/25/18 04:00 88 07/25/18 04:00 98.2 83 16 121/74 (90) 100 07/25/18 04:00 30 07/25/18 03:23 84 16 30 07/25/18 01:30 77 16 30 07/25/18 00:00 96 07/25/18 00:00 Mechanical Ventilator 07/25/18 00:00 97.0 87 16 121/74 (90) 100 1/13/19 23:04 88 18 30 07/24/18 20:48 88 16 30 07/24/18 20:00 Mechanical Ventilator 07/24/18 20:00 97.9 92 16 120/62 (81) 100 07/24/18 20:00 30 07/24/18 20:00 96 07/24/18 19:21 89 16 30 07/24/18 16:44 100 18 30 07/24/18 16:11 Mechanical Ventilator 07/24/18 16:10 96 07/24/18 16:10 30 07/24/18 16:00 98.4 97 18 119/69 (86) 97 07/24/18 15:11 90 16 30 Height (Feet): 5 Height (Inches): 7.00 Weight (Pounds): 157 Objective Gen: NAD, Satting well on vent 30% O2 HEENT: NCAT, MMM, PERRL LUNGS: Coarse Left side decreased, No W CARDS: RRR, S1, S2, No M/R/G, ABD: Soft, NT, ND, + BS, PEG (No E/P) Laboratory Tests Test 07/25/18 03:30 07/25/18 08:10 White Blood Count 10.4 K/UL (4.8-10.8) 10.5 K/UL (4.8-10.8) Red Blood Count 2.06 M/UL (4.70-6.10) L 3.25 M/UL (4.70-6.10) L Hemoglobin 5.9 G/DL (14.2-18.0) 9.3 G/DL (14.2-18.0) #L Hematocrit 17.8 % (42.0-52.0) #L 28.2 % (42.0-52.0) #L Mean Corpuscular Volume 87 FL (80-99) 87 FL (80-99) Mean Corpuscular Hemoglobin 28.7 PG (27.0-31.0) 28.7 PG (27.0-31.0) Mean Corpuscular Hemoglobin Concent 33.1 G/DL (32.0-36.0) 33.2 G/DL (32.0-36.0) Red Cell Distribution Width 13.9 % (11.6-14.8) 14.3 % (11.6-14.8) Platelet Count 266 K/UL (150-450) 277 K/UL (150-450) Mean Platelet Volume 5.7 FL (6.5-10.1) L 5.9 FL (6.5-10.1) L Neutrophils (%) (Auto) % (45.0-75.0) 69.6 % (45.0-75.0) Lymphocytes (%) (Auto) % (20.0-45.0) 20.8 % (20.0-45.0) Monocytes (%) (Auto) % (1.0-10.0) 7.2 % (1.0-10.0) Eosinophils (%) (Auto) % (0.0-3.0) 2.1 % (0.0-3.0) Basophils (%) (Auto) % (0.0-2.0) 0.3 % (0.0-2.0) Differential Total Cells Counted 100 Neutrophils % (Manual) 68 % (45-75) Lymphocytes % (Manual) 23 % (20-45) Monocytes % (Manual) 4 % (1-10) Eosinophils % (Manual) 5 % (0-3) H Basophils % (Manual) 0 % (0-2) Band Neutrophils 0 % (0-8) Platelet Estimate Adequate Platelet Morphology Normal Hypochromasia 1+ Sodium Level 143 MMOL/L (136-145) Potassium Level 3.0 MMOL/L (3.5-5.1) L Chloride Level 107 MMOL/L (98-107) Carbon Dioxide Level 24 MMOL/L (21-32) Anion Gap 12 mmol/L (5-15) Blood Urea Nitrogen 13 mg/dL (7-18) Creatinine 0.5 MG/DL (0.55-1.30) L Estimat Glomerular Filtration Rate > 60 mL/min (>60) Glucose Level 85 MG/DL (74-106) Calcium Level 8.3 MG/DL (8.5-10.1) L Current Medications Medications (Trade) Dose Ordered Sig/Becca Route PRN Reason Start Time Stop Time Status Last Admin Dose Admin Acetaminophen (Tylenol) 650 mg Q6H PRN GT Mild Pain/Temp > 100.5 07/17/18 08:45 08/16/18 08:44 Atorvastatin Calcium (Lipitor) 40 mg BEDTIME GT 07/17/18 21:00 08/16/18 20:59 07/24/18 21:39 Bisacodyl (Dulcolax) 10 mg DAILYPRN PRN RECTAL Constipation 07/17/18 08:15 08/16/18 08:14 Chlorhexidine Gluconate (Lawanda-Hex 2%) 1 applic DAILY@2000 TOPIC 07/17/18 20:00 08/16/18 19:59 07/24/18 20:00 Docusate Sodium (Colace) 200 mg TWICE A DAY PRN NG Constipation 07/17/18 10:45 08/16/18 10:44 Guaifenesin (Robitussin) 100 mg Q24H PRN GT For Cough 07/17/18 08:15 08/16/18 08:14 Heparin Sodium (Porcine) (Heparin 5000 units/ml) 5,000 units EVERY 8 HOURS SUBQ 07/17/18 14:00 08/16/18 13:59 07/25/18 05:54 Lansoprazole (Prevacid) 30 mg DAILY GT 07/17/18 09:00 08/16/18 08:59 07/25/18 09:06 Magnesium Oxide (Mag-Ox 400mg) 400 mg DAILY GT 07/17/18 09:00 08/16/18 08:59 07/25/18 09:06 Midodrine (Pro-Amatine) 5 mg THREE TIMES A DAY GT 07/17/18 09:00 08/16/18 08:59 07/25/18 12:13 Potassium Chloride 100 ml @ 50 mls/hr ONCE IVPB 07/25/18 11:52 07/25/18 13:51 07/25/18 12:13 Potassium Chloride (K-Dur) 40 meq ONCE GT 07/25/18 08:00 08/24/18 07:59 07/25/18 09:07 Pyridoxine HCl (Vitamin B6) 100 mg DAILY GT 07/17/18 09:00 08/16/18 08:59 07/25/18 09:06 Sennosides (Senokot) 17.2 mg DAILY PRN GT Constipation 07/17/18 08:15 08/16/18 08:14 Vitamin D (Vitamin D) 1,000 intlu DAILY ORAL 07/18/18 09:00 08/17/18 08:59 07/25/18 09:10 Julee Law M.D. Jul 25, 2018 13:03
[2018-07-25 16:00] VITALS: BP 118/78
--- NOTE | 2018-07-25 16:27 | Cardiac Electrophysiology PN ---
Assessment/Plan Assessment/Plan 1. Troponin leak. The levels are flat. he is nonverbal. Likely due to dehydration. Echo EF 55% 2. VDRF, status post tracheostomy. 3. Dysphagia, status post PEG 4. Hypokalemia. 5. Azotemia. 6. Encephalopathy DW RN Subjective Subjective On the vent. Had fever again. Mom at bedside. Objective Last 24 Hour Vital Signs Date Time Temp Pulse Resp B/P (MAP) Pulse Ox O2 Delivery O2 Flow Rate FiO2 07/25/18 14:32 95 16 30 07/25/18 12:50 98 16 30 07/25/18 12:03 94 07/25/18 12:00 30 07/25/18 12:00 Mechanical Ventilator 07/25/18 12:00 101.1 101 16 123/73 (90) 99 07/25/18 11:20 101 16 30 07/25/18 09:00 113 16 30 07/25/18 08:00 30 07/25/18 08:00 Mechanical Ventilator 07/25/18 08:00 97.9 112 20 131/77 (95) 100 07/25/18 07:42 108 07/25/18 06:55 109 16 30 07/25/18 04:58 86 16 30 07/25/18 04:00 Mechanical Ventilator 07/25/18 04:00 88 07/25/18 04:00 98.2 83 16 121/74 (90) 100 07/25/18 04:00 30 07/25/18 03:23 84 16 30 07/25/18 01:30 77 16 30 07/25/18 00:00 96 07/25/18 00:00 Mechanical Ventilator 07/25/18 00:00 97.0 87 16 121/74 (90) 100 07/24/18 23:04 88 18 30 07/24/18 20:48 88 16 30 07/24/18 20:00 Mechanical Ventilator 07/24/18 20:00 97.9 92 16 120/62 (81) 100 07/24/18 20:00 30 07/24/18 20:00 96 07/24/18 19:21 89 16 30 07/24/18 16:44 100 18 30 Intake and Output 07/24/18 07/25/18 19:00 07:00 Intake Total 1615 ml 835 ml Output Total 1001 ml 1000 ml Balance 614 ml -165 ml Intake Free Water 200 ml 110 ml IV Total 525 ml 375 ml Tube Feeding 650 ml 350 ml Other 240 ml Output Urine Total 1000 ml 1000 ml Stool Total 1 ml # Bowel Movements 2 3 Laboratory Tests Test 07/25/18 03:30 07/25/18 08:10 White Blood Count 10.4 K/UL (4.8-10.8) 10.5 K/UL (4.8-10.8) Red Blood Count 2.06 M/UL (4.70-6.10) L 3.25 M/UL (4.70-6.10) L Hemoglobin 5.9 G/DL (14.2-18.0) 9.3 G/DL (14.2-18.0) #L Hematocrit 17.8 % (42.0-52.0) #L 28.2 % (42.0-52.0) #L Mean Corpuscular Volume 87 FL (80-99) 87 FL (80-99) Mean Corpuscular Hemoglobin 28.7 PG (27.0-31.0) 28.7 PG (27.0-31.0) Mean Corpuscular Hemoglobin Concent 33.1 G/DL (32.0-36.0) 33.2 G/DL (32.0-36.0) Red Cell Distribution Width 13.9 % (11.6-14.8) 14.3 % (11.6-14.8) Platelet Count 266 K/UL (150-450) 277 K/UL (150-450) Mean Platelet Volume 5.7 FL (6.5-10.1) L 5.9 FL (6.5-10.1) L Neutrophils (%) (Auto) % (45.0-75.0) 69.6 % (45.0-75.0) Lymphocytes (%) (Auto) % (20.0-45.0) 20.8 % (20.0-45.0) Monocytes (%) (Auto) % (1.0-10.0) 7.2 % (1.0-10.0) Eosinophils (%) (Auto) % (0.0-3.0) 2.1 % (0.0-3.0) Basophils (%) (Auto) % (0.0-2.0) 0.3 % (0.0-2.0) Differential Total Cells Counted 100 Neutrophils % (Manual) 68 % (45-75) Lymphocytes % (Manual) 23 % (20-45) Monocytes % (Manual) 4 % (1-10) Eosinophils % (Manual) 5 % (0-3) H Basophils % (Manual) 0 % (0-2) Band Neutrophils 0 % (0-8) Platelet Estimate Adequate Platelet Morphology Normal Hypochromasia 1+ Sodium Level 143 MMOL/L (136-145) Potassium Level 3.0 MMOL/L (3.5-5.1) L Chloride Level 107 MMOL/L (98-107) Carbon Dioxide Level 24 MMOL/L (21-32) Anion Gap 12 mmol/L (5-15) Blood Urea Nitrogen 13 mg/dL (7-18) Creatinine 0.5 MG/DL (0.55-1.30) L Estimat Glomerular Filtration Rate > 60 mL/min (>60) Glucose Level 85 MG/DL (74-106) Calcium Level 8.3 MG/DL (8.5-10.1) L Objective HEAD AND NECK: No JVD. Status post tracheostomy. LUNGS: Coarse rhonchi. CARDIOVASCULAR: Regular S1 and S2 with no gallop. ABDOMEN: Status post PEG. EXTREMITIES: With no pitting edema. NEUROLOGIC: He is quadriplegic and nonverbal. Wale Severino MD Jul 25, 2018 16:27
[2018-07-25] MEDS ORDERED: NS 275ml ONE (17:07)
[2018-07-25] MEDS ORDERED: D5 1/2NS 1000ml IV ONE (17:07)
--- NOTE | 2018-07-25 18:08 | Cardiology Report ---
APPROVED REPORT EKG Measurement Heart [id number] ND [id number] Sinus tachycardia Otherwise normal ECG
--- NOTE | 2018-07-25 18:20 | Internal Med Progress Note ---
Subjective Date of Service: Jul 25, 2018 Physician Name Zeyad Simmons Attending Physician Wilner Suarez MD Current Medications Medications (Trade) Dose Ordered Sig/Becca Route PRN Reason Start Time Stop Time Status Last Admin Dose Admin Acetaminophen (Tylenol) 650 mg Q6H PRN GT Mild Pain/Temp > 100.5 07/17/18 08:45 08/16/18 08:44 Atorvastatin Calcium (Lipitor) 40 mg BEDTIME GT 07/17/18 21:00 08/16/18 20:59 07/24/18 21:39 Bisacodyl (Dulcolax) 10 mg DAILYPRN PRN RECTAL Constipation 07/17/18 08:15 08/16/18 08:14 Chlorhexidine Gluconate (Lawanda-Hex 2%) 1 applic DAILY@2000 TOPIC 07/17/18 20:00 08/16/18 19:59 07/24/18 20:00 Docusate Sodium (Colace) 200 mg TWICE A DAY PRN NG Constipation 07/17/18 10:45 08/16/18 10:44 Guaifenesin (Robitussin) 100 mg Q24H PRN GT For Cough 07/17/18 08:15 08/16/18 08:14 Heparin Sodium (Porcine) (Heparin 5000 units/ml) 5,000 units EVERY 8 HOURS SUBQ 07/17/18 14:00 08/16/18 13:59 07/25/18 14:06 Lansoprazole (Prevacid) 30 mg DAILY GT 07/17/18 09:00 08/16/18 08:59 07/25/18 09:06 Magnesium Oxide (Mag-Ox 400mg) 400 mg DAILY GT 07/17/18 09:00 08/16/18 08:59 07/25/18 09:06 Midodrine (Pro-Amatine) 5 mg THREE TIMES A DAY GT 07/17/18 09:00 08/16/18 08:59 07/25/18 17:31 Potassium Chloride (K-Dur) 40 meq ONCE GT 07/25/18 08:00 08/24/18 07:59 07/25/18 09:07 Pyridoxine HCl (Vitamin B6) 100 mg DAILY GT 07/17/18 09:00 08/16/18 08:59 07/25/18 09:06 Sennosides (Senokot) 17.2 mg DAILY PRN GT Constipation 07/17/18 08:15 08/16/18 08:14 Vitamin D (Vitamin D) 1,000 intlu DAILY ORAL 07/18/18 09:00 08/17/18 08:59 07/25/18 09:10 Allergies: Coded Allergies: FISH CONTAINING PRODUCTS (Verified Allergy, Unknown, Anaphylaxis, 07/20/18) Spoke to patient's mother SHELLFISH DERIVED (Verified Allergy, Unknown, Anaphylaxis, 07/20/18) Spoke to patient's mother ROS Limited/Unobtainable: Yes Subjective 52 YO M paraplegic with chronic vent dep admitted with Shortness of breath. Now LLL pneumonia and elevated troponin. On [facility] vent. Cover for Int Med-dr Suarez. DIANNE Objective Last Vital Signs Date Time Temp Pulse Resp B/P (MAP) Pulse Ox O2 Delivery O2 Flow Rate FiO2 07/25/18 17:15 85 16 30 07/25/18 16:00 Mechanical Ventilator 07/25/18 12:00 101.1 123/73 (90) 99 Laboratory Tests Test 07/25/18 03:30 07/25/18 08:10 White Blood Count 10.4 K/UL (4.8-10.8) 10.5 K/UL (4.8-10.8) Red Blood Count 2.06 M/UL (4.70-6.10) L 3.25 M/UL (4.70-6.10) L Hemoglobin 5.9 G/DL (14.2-18.0) 9.3 G/DL (14.2-18.0) #L Hematocrit 17.8 % (42.0-52.0) #L 28.2 % (42.0-52.0) #L Mean Corpuscular Volume 87 FL (80-99) 87 FL (80-99) Mean Corpuscular Hemoglobin 28.7 PG (27.0-31.0) 28.7 PG (27.0-31.0) Mean Corpuscular Hemoglobin Concent 33.1 G/DL (32.0-36.0) 33.2 G/DL (32.0-36.0) Red Cell Distribution Width 13.9 % (11.6-14.8) 14.3 % (11.6-14.8) Platelet Count 266 K/UL (150-450) 277 K/UL (150-450) Mean Platelet Volume 5.7 FL (6.5-10.1) L 5.9 FL (6.5-10.1) L Neutrophils (%) (Auto) % (45.0-75.0) 69.6 % (45.0-75.0) Lymphocytes (%) (Auto) % (20.0-45.0) 20.8 % (20.0-45.0) Monocytes (%) (Auto) % (1.0-10.0) 7.2 % (1.0-10.0) Eosinophils (%) (Auto) % (0.0-3.0) 2.1 % (0.0-3.0) Basophils (%) (Auto) % (0.0-2.0) 0.3 % (0.0-2.0) Differential Total Cells Counted 100 Neutrophils % (Manual) 68 % (45-75) Lymphocytes % (Manual) 23 % (20-45) Monocytes % (Manual) 4 % (1-10) Eosinophils % (Manual) 5 % (0-3) H Basophils % (Manual) 0 % (0-2) Band Neutrophils 0 % (0-8) Platelet Estimate Adequate Platelet Morphology Normal Hypochromasia 1+ Sodium Level 143 MMOL/L (136-145) Potassium Level 3.0 MMOL/L (3.5-5.1) L Chloride Level 107 MMOL/L (98-107) Carbon Dioxide Level 24 MMOL/L (21-32) Anion Gap 12 mmol/L (5-15) Blood Urea Nitrogen 13 mg/dL (7-18) Creatinine 0.5 MG/DL (0.55-1.30) L Estimat Glomerular Filtration Rate > 60 mL/min (>60) Glucose Level 85 MG/DL (74-106) Calcium Level 8.3 MG/DL (8.5-10.1) L Intake and Output 07/24/18 07/25/18 19:00 07:00 Intake Total 1615 ml 835 ml Output Total 1001 ml 1000 ml Balance 614 ml -165 ml Intake Free Water 200 ml 110 ml IV Total 525 ml 375 ml Tube Feeding 650 ml 350 ml Other 240 ml Output Urine Total 1000 ml 1000 ml Stool Total 1 ml # Bowel Movements 2 3 Objective GENERAL: The patient is well-developed, well-nourished male, who is intubated. HEENT: Eyes, pupils equal and responsive to light and accommodation. Extraocular movements are intact. NECK: Tracheosotmy; Supple without lymphadenopathy. CHEST: Mech vent; Decreased breath sounds, left lower lobe. Otherwise, without wheezes or rales. CARDIOVASCULAR: Tachycardic, regular rhythm. S1 and S2 are normal without murmurs, rubs, gallops. ABDOMEN: Soft, nontender, and nondistended. Positive bowel sounds. No evidence of hepatosplenomegaly. Currently, no rebound or guarding noted. NEUROLOGICAL: The patient is paraplegic. Cranial nerves II through XII are grossly intact without focal deficits. Assessment/Plan Problem List: (1) Hypertension (2) Dysphagia Assessment & Plan: On G-tube feeds (3) Healthcare-associated pneumonia Assessment & Plan: Continue zosyn and vanco per pulmonary (4) Acute on chronic respiratory failure Assessment & Plan: Chronic vent dep-see pulmonary note. (5) Elevated troponin Assessment & Plan: see cardiology note. (6) Quadriplegia (7) Feeding by G-tube (8) NSTEMI (non-ST elevated myocardial infarction) Assessment & Plan: See cardiology note (9) Vegetative state Assessment/Plan Await acceptance to sub acute facility Zeyad Simmons MD Jul 25, 2018 18:20
--- NOTE | 2018-07-25 19:30 | NUR ---
NURSE NOTES: Received Pt is resting on the bed and awake and non-verbal. Trach to Vent dependent setting with AC: 16, T: 550, P: 5, FiO2 30 and SaO2 100% noted. No sign of pain by facial expression. Lt. upper arm PICC line dressing is dry and clean. Placed condom cath and patent. On G-tube feeding is tolerated well and no residual noted. Placed fall precaution. Change position. Will continue to care plan.
--- NOTE | 2018-07-25 19:35 | NUR ---
HAND-OFF: Report given to Nirmala Cintron RN.
[2018-07-25 20:00] VITALS: BP 125/74
[2018-07-25] MEDS: Dyna-Hex 2% Top Sol 2oz TOPIC SCH (20:03)
[2018-07-25] MEDS: Atorvastatin 20mg tab GT SCH (20:42)
[2018-07-26] VITALS: BP 109/65
[2018-07-26 04:00] VITALS: BP 118/72
[2018-07-26] MEDS: Heparin 5000 units/ml inj SUBQ SCH ×3 (05:46→22:10)
[2018-07-26 05:53] LABS: BASOPHILS % (AUTO) 0.4 % (0.0-2.0); EOSINOPHILS % (AUTO) 1.3 % (0.0-3.0); HEMATOCRIT 27.2 % (42.0-52.0); MEAN CORPUSCULAR VOLUME 87 FL (80-99); MONOCYTES % (AUTO) 7.2 % (1.0-10.0); PLATELET COUNT 262 K/UL (150-450); RED BLOOD COUNT 3.11 M/UL (4.70-6.10); RED CELL DISTRIBUTION WIDTH 14.1 % (11.6-14.8)
[2018-07-26 06:27] LABS: ALANINE AMINOTRANSFERASE 66 U/L (12-78); ALBUMIN 2.8 G/DL (3.4-5.0); ALBUMIN/GLOBULIN RATIO 0.6 (1.0-2.7); ALKALINE PHOSPHATASE 107 U/L (46-116); ANION GAP 12 mmol/L (5-15); ASPARTATE AMINO TRANSFERASE 38 U/L (15-37); BILIRUBIN,TOTAL 0.3 MG/DL (0.2-1.0); BLOOD UREA NITROGEN 15 mg/dL (7-18); CALCIUM 9.1 MG/DL (8.5-10.1); CARBON DIOXIDE 24 MMOL/L (21-32); CHLORIDE 109 MMOL/L (98-107); CREATININE 0.5 MG/DL (0.55-1.30); POTASSIUM 3.8 MMOL/L (3.5-5.1); SODIUM 145 MMOL/L (136-145)
--- NOTE | 2018-07-26 07:28 | NUR ---
RESPIRATORY NOTE: received pt on vent, trached; portex 6, secured by trach tie/ guard. no redness or skin tears around stoma. no resp distress noted at this time. vent is plugged into red outlet with alarms set and audible. ambu bag at bedside. will cont to monitor.
--- NOTE | 2018-07-26 07:39 | NUR ---
HAND-OFF: Report given to MELECIO negrete. Pt is resting on the bed and no sign of acute distress noted.
--- NOTE | 2018-07-26 07:40 | NUR ---
NURSE NOTES: RECEIVED PATIENT FROM Ulises PARTIDA RN. PIOTR IS LYING IN BED, AWAKE, BUT NONVERBAL. MOTHER IS SEEN AT THE BEDSIDE. HOOKED TO PETROLEUM SAMPLER. TRACH TO VENT. PORTEX 6, VENT SETTINGS AC 16. TV 550, FIO2 30, PEEP 5. NO SIGNS OF CARDIO OR RESPI DISTRESS OF THE MOMENT. GT IN PLACE. ON TUBE FEEDING.OSMOLITE 1.5 AT 50CC X 20HOURS. CONDOM CATH ON. WITH R UA PICC, PATENT AND INTACT. CALL LIGHT WITHIN REACH. BED AT LOWEST POSITION. SIDE RAILS UP. WILL CONTINUE TO MONITOR.
[2018-07-26 08:00] VITALS: BP 95/54
[2018-07-26] MEDS: Pyridoxine 50mg tab GT SCH (08:23)
[2018-07-26] MEDS: Magnesium Oxide 400mg tab GT SCH (08:23)
[2018-07-26] MEDS: Vitamin D 1000 IU Tab ORAL SCH (08:23)
--- NOTE | 2018-07-26 08:45 | NUR ---
RADIOLOGY DEPT CHEST X-RAY DONE.-P.DYE
--- NOTE | 2018-07-26 09:45 | Cardiac Electrophysiology PN ---
Assessment/Plan Assessment/Plan 1. Troponin leak. The levels are flat. Nonverbal. Likely due to dehydration. Echo EF 55% 2. VDRF, status post tracheostomy. 3. Dysphagia, status post PEG 4. Hypokalemia. 5. Azotemia. 6. Encephalopathy 7. Fever, Abx per ID 8. Hypotension on Midodrine DW RN and mom Subjective Subjective On the vent. No events. Mom at bedside. Objective Last 24 Hour Vital Signs Date Time Temp Pulse Resp B/P (MAP) Pulse Ox O2 Delivery O2 Flow Rate FiO2 07/26/18 08:46 100 16 30 07/26/18 08:00 96.3 99 16 95/54 (68) 100 07/26/18 08:00 30 07/26/18 07:55 104 07/26/18 07:24 104 16 30 07/26/18 05:21 110 16 30 07/26/18 04:00 Mechanical Ventilator 07/26/18 04:00 94 07/26/18 04:00 98.2 95 16 118/72 (87) 100 07/26/18 04:00 30 07/26/18 03:24 93 16 30 07/26/18 01:41 90 16 30 07/26/18 00:00 98.1 93 16 109/65 (80) 100 07/26/18 00:00 96 07/26/18 00:00 Mechanical Ventilator 07/25/18 23:30 92 16 30 07/25/18 21:07 74 16 30 07/25/18 20:00 Mechanical Ventilator 07/25/18 20:00 98.1 84 16 125/74 (91) 100 07/25/18 20:00 30 07/25/18 20:00 80 07/25/18 18:40 81 16 30 07/25/18 17:15 85 16 30 07/25/18 16:00 101 07/25/18 16:00 98.4 80 16 118/78 (91) 100 07/25/18 16:00 30 07/25/18 16:00 Mechanical Ventilator 07/25/18 14:32 95 16 30 07/25/18 12:50 98 16 30 07/25/18 12:03 94 07/25/18 12:00 30 07/25/18 12:00 Mechanical Ventilator 07/25/18 12:00 101.1 101 16 123/73 (90) 99 1/14/19 11:20 101 16 30 Intake and Output 07/25/18 07/26/18 19:00 07:00 Intake Total 1275 ml 600 ml Output Total 1300 ml 1600 ml Balance -25 ml -1000 ml Intake Free Water 200 ml IV Total 325 ml Tube Feeding 550 ml 600 ml Other 200 ml Output Urine Total 1300 ml 1600 ml # Bowel Movements 1 2 Laboratory Tests Test 07/26/18 04:00 White Blood Count 11.0 K/UL (4.8-10.8) H Red Blood Count 3.11 M/UL (4.70-6.10) L Hemoglobin 9.0 G/DL (14.2-18.0) L Hematocrit 27.2 % (42.0-52.0) L Mean Corpuscular Volume 87 FL (80-99) Mean Corpuscular Hemoglobin 28.9 PG (27.0-31.0) Mean Corpuscular Hemoglobin Concent 33.1 G/DL (32.0-36.0) Red Cell Distribution Width 14.1 % (11.6-14.8) Platelet Count 262 K/UL (150-450) Mean Platelet Volume 5.9 FL (6.5-10.1) L Neutrophils (%) (Auto) 73.0 % (45.0-75.0) Lymphocytes (%) (Auto) 18.0 % (20.0-45.0) L Monocytes (%) (Auto) 7.2 % (1.0-10.0) Eosinophils (%) (Auto) 1.3 % (0.0-3.0) Basophils (%) (Auto) 0.4 % (0.0-2.0) Sodium Level 145 MMOL/L (136-145) Potassium Level 3.8 MMOL/L (3.5-5.1) Chloride Level 109 MMOL/L (98-107) H Carbon Dioxide Level 24 MMOL/L (21-32) Anion Gap 12 mmol/L (5-15) Blood Urea Nitrogen 15 mg/dL (7-18) Creatinine 0.5 MG/DL (0.55-1.30) L Estimat Glomerular Filtration Rate > 60 mL/min (>60) Glucose Level 122 MG/DL (74-106) H Calcium Level 9.1 MG/DL (8.5-10.1) Total Bilirubin 0.3 MG/DL (0.2-1.0) Aspartate Amino Transf (AST/SGOT) 38 U/L (15-37) H Alanine Aminotransferase (ALT/SGPT) 66 U/L (12-78) Alkaline Phosphatase 107 U/L (46-116) Pro-B-Type Natriuretic Peptide 191 pg/mL (0-125) H Total Protein 7.6 G/DL (6.4-8.2) Albumin 2.8 G/DL (3.4-5.0) L Globulin 4.8 g/dL Albumin/Globulin Ratio 0.6 (1.0-2.7) L Objective HEAD AND NECK: No JVD. Status post tracheostomy. LUNGS: Coarse rhonchi. CARDIOVASCULAR: Regular S1 and S2 with no gallop. ABDOMEN: Status post PEG. EXTREMITIES: With no pitting edema. NEUROLOGIC: He is quadriplegic and nonverbal. Wale Severino MD Jul 26, 2018 09:45
--- NOTE | 2018-07-26 10:22 | Pulmonology Progress Note ---
Assessment/Plan Problems: (1) Acute on chronic respiratory failure (2) Healthcare-associated pneumonia (3) Sepsis (4) Feeding by G-tube (5) Quadriplegia (6) Vegetative state Respiratory: monitor respiratory rate, adjust FIO2 Cardiac: continue to monitor HR/BP Renal: F/U I&O Infectious Disease: check cultures Gastrointestinal: continue feedings/current rate Endocrine: check TSH, check HgA1C Neurologic: PRN Ativan, PRN Morphine Prophylaxis: Protonix Notes Reviewed: cardio Discussed with: nurses, consultants, case planner Subjective ROS Limited/Unobtainable: Yes Constitutional: Reports: no symptoms HEENT: Repors: no symptoms Allergies: Coded Allergies: FISH CONTAINING PRODUCTS (Verified Allergy, Unknown, Anaphylaxis, 07/20/18) Spoke to patient's mother SHELLFISH DERIVED (Verified Allergy, Unknown, Anaphylaxis, 07/20/18) Spoke to patient's mother Objective Last 24 Hour Vital Signs Date Time Temp Pulse Resp B/P (MAP) Pulse Ox O2 Delivery O2 Flow Rate FiO2 07/26/18 08:46 100 16 30 07/26/18 08:00 96.3 99 16 95/54 (68) 100 07/26/18 08:00 30 07/26/18 07:55 104 07/26/18 07:24 104 16 30 07/26/18 05:21 110 16 30 07/26/18 04:00 Mechanical Ventilator 07/26/18 04:00 94 07/26/18 04:00 98.2 95 16 118/72 (87) 100 07/26/18 04:00 30 07/26/18 03:24 93 16 30 07/26/18 01:41 90 16 30 07/26/18 00:00 98.1 93 16 109/65 (80) 100 07/26/18 00:00 96 07/26/18 00:00 Mechanical Ventilator 07/25/18 23:30 92 16 30 07/25/18 21:07 74 16 30 07/25/18 20:00 Mechanical Ventilator 07/25/18 20:00 98.1 84 16 125/74 (91) 100 07/25/18 20:00 30 07/25/18 20:00 80 07/25/18 18:40 81 16 30 07/25/18 17:15 85 16 30 07/25/18 16:00 101 07/25/18 16:00 98.4 80 16 118/78 (91) 100 07/25/18 16:00 30 07/25/18 16:00 Mechanical Ventilator 07/25/18 14:32 95 16 30 07/25/18 12:50 98 16 30 07/25/18 12:03 94 07/25/18 12:00 30 07/25/18 12:00 Mechanical Ventilator 07/25/18 12:00 101.1 101 16 123/73 (90) 99 07/25/18 11:20 101 16 30 Intake and Output 07/25/18 07/26/18 19:00 07:00 Intake Total 1275 ml 600 ml Output Total 1300 ml 1600 ml Balance -25 ml -1000 ml Intake Free Water 200 ml IV Total 325 ml Tube Feeding 550 ml 600 ml Other 200 ml Output Urine Total 1300 ml 1600 ml # Bowel Movements 1 2 General Appearance: WD/WN HEENT: normocephalic, atraumatic, anicteric, status post trach Respiratory/Chest: chest wall non-tender, lungs clear Cardiovascular: normal peripheral pulses, normal rate, regular rhythm Abdomen: normal bowel sounds, soft, non tender, no scars Genitourinary: normal external genitalia Skin: no lesions Laboratory Tests 07/26/18 04:00: White Blood Count 11.0H, Red Blood Count 3.11L, Hemoglobin 9.0L, Hematocrit 27.2L, Mean Corpuscular Volume 87, Mean Corpuscular Hemoglobin 28.9, Mean Corpuscular Hemoglobin Concent 33.1, Red Cell Distribution Width 14.1, Platelet Count 262, Mean Platelet Volume 5.9L, Neutrophils (%) (Auto) 73.0, Lymphocytes ( %) (Auto) 18.0L, Monocytes (%) (Auto) 7.2, Eosinophils (%) (Auto) 1.3, Basophils (%) (Auto) 0.4, Sodium Level 145, Potassium Level 3.8, Chloride Level 109H, Carbon Dioxide Level 24, Anion Gap 12, Blood Urea Nitrogen 15, Creatinine 0.5L, Estimat Glomerular Filtration Rate > 60, Glucose Level 122H, Calcium Level 9.1, Total Bilirubin 0.3, Aspartate Amino Transf (AST/SGOT) 38H, Alanine Aminotransferase (ALT/SGPT) 66, Alkaline Phosphatase 107, Pro-B-Type Natriuretic Peptide 191H, Total Protein 7.6, Albumin 2.8L, Globulin 4.8, Albumin /Globulin Ratio 0.6L Current Medications Medications (Trade) Dose Ordered Sig/Becca Route PRN Reason Start Time Stop Time Status Last Admin Dose Admin Acetaminophen (Tylenol) 650 mg Q6H PRN GT Mild Pain/Temp > 100.5 07/17/18 08:45 08/16/18 08:44 07/26/18 06:36 Atorvastatin Calcium (Lipitor) 40 mg BEDTIME GT 07/17/18 21:00 08/16/18 20:59 07/25/18 20:42 Bisacodyl (Dulcolax) 10 mg DAILYPRN PRN RECTAL Constipation 07/17/18 08:15 08/16/18 08:14 Chlorhexidine Gluconate (Lawanda-Hex 2%) 1 applic DAILY@1999 TOPIC 07/17/18 20:00 08/16/18 19:59 07/25/18 20:03 Docusate Sodium (Colace) 200 mg TWICE A DAY PRN NG Constipation 07/17/18 10:45 08/16/18 10:44 Guaifenesin (Robitussin) 100 mg Q24H PRN GT For Cough 07/17/18 08:15 08/16/18 08:14 Heparin Sodium (Porcine) (Heparin 5000 units/ml) 5,000 units EVERY 8 HOURS SUBQ 07/17/18 14:00 08/16/18 13:59 07/26/18 05:46 Lansoprazole (Prevacid) 30 mg DAILY GT 07/17/18 09:00 08/16/18 08:59 07/26/18 08:23 Magnesium Oxide (Mag-Ox 400mg) 400 mg DAILY GT 07/17/18 09:00 08/16/18 08:59 07/26/18 08:23 Midodrine (Pro-Amatine) 5 mg THREE TIMES A DAY GT 07/17/18 09:00 08/16/18 08:59 07/26/18 08:24 Pyridoxine HCl (Vitamin B6) 100 mg DAILY GT 07/17/18 09:00 08/16/18 08:59 07/26/18 08:23 Sennosides (Senokot) 17.2 mg DAILY PRN GT Constipation 07/17/18 08:15 08/16/18 08:14 Vitamin D (Vitamin D) 1,000 intlu DAILY ORAL 07/18/18 09:00 08/17/18 08:59 07/26/18 08:23 Milena Ross MD Jul 26, 2018 10:22
--- NOTE | 2018-07-26 11:28 | Infectious Diseases Prog Note ---
Assessment/Plan Assessment/Plan 52 yo male with PMHx of Vent dependence, Dysphagia s/p PEG, Parapelgia, and HTN who was sent to the ED on 07/16/18 from his skilled nursing for fever and increased respiratory disteress. Sepsis - recurrent- ? PNA, MDRO- r/o bacteremia PNA vs UTI UA (+) 07/16 Urine Cx 07/17 - Multiple organisms not worked up 07/16/18 Blood Cx (NGTD) CXR 07/23: 1. Persistent patchy opacities at the periphery of the left lung base and retrocardiac region, unchanged. Unchanged mildly prominent interstitial markings. Possible small left pleural effusion. CXR 07/16 - LLL Collapse Vent dependent sp trach Dysphagia s/p PEG Parapelgia HTN Lumbar laminectomy. Plan -Start empiric Meropenem given recurrent sepsis and pending repeat cultures -05/23 SP Vancomcyin #7 and zosyn #7 -u/a, bcx x2, Sp cx - Monitor CBC and Temps -CBC, CMP, CXR am Thank you for this consult. We will continue to follow the patient during this hospitalization. Subjective Allergies: Coded Allergies: FISH CONTAINING PRODUCTS (Verified Allergy, Unknown, Anaphylaxis, 07/20/18) Spoke to patient's mother SHELLFISH DERIVED (Verified Allergy, Unknown, Anaphylaxis, 07/20/18) Spoke to patient's mother Subjective Tm 101.1 wbc 11 Objective Vital Signs Last 24 Hour Vital Signs Date Time Temp Pulse Resp B/P (MAP) Pulse Ox O2 Delivery O2 Flow Rate FiO2 07/26/18 08:46 100 16 30 07/26/18 08:00 96.3 99 16 95/54 (68) 100 07/26/18 08:00 30 07/26/18 07:55 104 07/26/18 07:24 104 16 30 07/26/18 05:21 110 16 30 07/26/18 04:00 Mechanical Ventilator 07/26/18 04:00 94 07/26/18 04:00 98.2 95 16 118/72 (87) 100 07/26/18 04:00 30 07/26/18 03:24 93 16 30 07/26/18 01:41 90 16 30 07/26/18 00:00 98.1 93 16 109/65 (80) 100 07/26/18 00:00 96 07/26/18 00:00 Mechanical Ventilator 07/25/18 23:30 92 16 30 07/25/18 21:07 74 16 30 07/25/18 20:00 Mechanical Ventilator 07/25/18 20:00 98.1 84 16 125/74 (91) 100 07/25/18 20:00 30 07/25/18 20:00 80 07/25/18 18:40 81 16 30 07/25/18 17:15 85 16 30 07/25/18 16:00 101 07/25/18 16:00 98.4 80 16 118/78 (91) 100 07/25/18 16:00 30 07/25/18 16:00 Mechanical Ventilator 07/25/18 14:32 95 16 30 07/25/18 12:50 98 16 30 07/25/18 12:03 94 07/25/18 12:00 30 07/25/18 12:00 Mechanical Ventilator 07/25/18 12:00 101.1 101 16 123/73 (90) 99 07/25/18 11:20 101 16 30 Height (Feet): 5 Height (Inches): 7.00 Weight (Pounds): 157 Objective Gen: NAD, Satting well on vent 30% O2 HEENT: NCAT, MMM, PERRL LUNGS: Coarse Left side decreased, No W CARDS: RRR, S1, S2, No M/R/G, ABD: Soft, NT, ND, + BS, PEG (No E/P) Laboratory Tests Test 07/26/18 04:00 White Blood Count 11.0 K/UL (4.8-10.8) H Red Blood Count 3.11 M/UL (4.70-6.10) L Hemoglobin 9.0 G/DL (14.2-18.0) L Hematocrit 27.2 % (42.0-52.0) L Mean Corpuscular Volume 87 FL (80-99) Mean Corpuscular Hemoglobin 28.9 PG (27.0-31.0) Mean Corpuscular Hemoglobin Concent 33.1 G/DL (32.0-36.0) Red Cell Distribution Width 14.1 % (11.6-14.8) Platelet Count 262 K/UL (150-450) Mean Platelet Volume 5.9 FL (6.5-10.1) L Neutrophils (%) (Auto) 73.0 % (45.0-75.0) Lymphocytes (%) (Auto) 18.0 % (20.0-45.0) L Monocytes (%) (Auto) 7.2 % (1.0-10.0) Eosinophils (%) (Auto) 1.3 % (0.0-3.0) Basophils (%) (Auto) 0.4 % (0.0-2.0) Sodium Level 145 MMOL/L (136-145) Potassium Level 3.8 MMOL/L (3.5-5.1) Chloride Level 109 MMOL/L (98-107) H Carbon Dioxide Level 24 MMOL/L (21-32) Anion Gap 12 mmol/L (5-15) Blood Urea Nitrogen 15 mg/dL (7-18) Creatinine 0.5 MG/DL (0.55-1.30) L Estimat Glomerular Filtration Rate > 60 mL/min (>60) Glucose Level 122 MG/DL (74-106) H Calcium Level 9.1 MG/DL (8.5-10.1) Total Bilirubin 0.3 MG/DL (0.2-1.0) Aspartate Amino Transf (AST/SGOT) 38 U/L (15-37) H Alanine Aminotransferase (ALT/SGPT) 66 U/L (12-78) Alkaline Phosphatase 107 U/L (46-116) Pro-B-Type Natriuretic Peptide 191 pg/mL (0-125) H Total Protein 7.6 G/DL (6.4-8.2) Albumin 2.8 G/DL (3.4-5.0) L Globulin 4.8 g/dL Albumin/Globulin Ratio 0.6 (1.0-2.7) L Current Medications Medications (Trade) Dose Ordered Sig/Becca Route PRN Reason Start Time Stop Time Status Last Admin Dose Admin Acetaminophen (Tylenol) 650 mg Q6H PRN GT Mild Pain/Temp > 100.5 07/17/18 08:45 08/16/18 08:44 07/26/18 06:36 Atorvastatin Calcium (Lipitor) 40 mg BEDTIME GT 07/17/18 21:00 08/16/18 20:59 07/25/18 20:42 Bisacodyl (Dulcolax) 10 mg DAILYPRN PRN RECTAL Constipation 07/17/18 08:15 08/16/18 08:14 Chlorhexidine Gluconate (Lawanda-Hex 2%) 1 applic DAILY@2000 TOPIC 07/17/18 20:00 08/16/18 19:59 07/25/18 20:03 Docusate Sodium (Colace) 200 mg TWICE A DAY PRN NG Constipation 07/17/18 10:45 08/16/18 10:44 Guaifenesin (Robitussin) 100 mg Q24H PRN GT For Cough 07/17/18 08:15 08/16/18 08:14 Heparin Sodium (Porcine) (Heparin 5000 units/ml) 5,000 units EVERY 8 HOURS SUBQ 07/17/18 14:00 08/16/18 13:59 07/26/18 05:46 Lansoprazole (Prevacid) 30 mg DAILY GT 07/17/18 09:00 08/16/18 08:59 07/26/18 08:23 Magnesium Oxide (Mag-Ox 400mg) 400 mg DAILY GT 07/17/18 09:00 08/16/18 08:59 07/26/18 08:23 Midodrine (Pro-Amatine) 5 mg THREE TIMES A DAY GT 07/17/18 09:00 08/16/18 08:59 07/26/18 08:24 Pyridoxine HCl (Vitamin B6) 100 mg DAILY GT 07/17/18 09:00 08/16/18 08:59 07/26/18 08:23 Sennosides (Senokot) 17.2 mg DAILY PRN GT Constipation 07/17/18 08:15 08/16/18 08:14 Vitamin D (Vitamin D) 1,000 intlu DAILY ORAL 07/18/18 09:00 08/17/18 08:59 07/26/18 08:23 Julee Law M.D. Jul 26, 2018 11:28
--- NOTE | 2018-07-26 11:33 | Diagnostic Imaging Report ---
Indication: Dyspnea Comparison: 07/23/2018 A single view chest radiograph was obtained. Findings: The heart is enlarged. There is a left pleural effusion and suggestion of basilar atelectasis. Tracheostomy is noted. PICC line is in good position and stable. IMPRESSION: No change from the prior examination.
[2018-07-26 12:00] VITALS: BP 120/72
--- NOTE | 2018-07-26 12:30 | NUR ---
HAND-OFF: Report given to Neal Salazar RN.
--- NOTE | 2018-07-26 12:40 | NUR ---
NURSE NOTES: received report from Catrachita. pt lying on the bed. Awake, non-verbal. mom at bedside. No signs of pain noted. SR with hall monitor. Trach to vent, portex 6, AC 16, TD 550, FIO2 30%, PEEP 5, saturating at 100%. GT clamped, will hang next TF Osmolite 1.5 at 35cc/hr. Condom catheter intact and draining well. PICC line on ALEXA. Bed in the lowest position. Side rails up x3. Contact precautions in place. Will continue to monitor.
[2018-07-26 13:13] LABS: APPEARANCE,URINE SLIGHTLY CLOUDY; BILIRUBIN, URINE NEGATIVE (NEGATIVE); COLOR,URINE PALE YELLOW; GLUCOSE, URINE (UA) NEGATIVE (NEGATIVE); KETONES,URINE NEGATIVE (NEGATIVE); LEUKOCYTE ESTERASE ,URINE 1+ (NEGATIVE); NITRITE,URINE NEGATIVE (NEGATIVE); PH,URINE 8 (4.5-8.0); PROTEIN,URINE NEGATIVE (NEGATIVE); UROBILINOGEN,URINE NORMAL MG/DL (0.0-1.0)
[2018-07-26] MEDS: Meropenem 1 GM in NS 55 ML IVPB SCH ×2 (13:48→22:08)
--- NOTE | 2018-07-26 15:02 | NUR ---
NURSE NOTES: Repositioned pt, oral provided. Medication administration per policy. Will continue to monitor and implement plan of care.
[2018-07-26 16:00] VITALS: BP 135/85
--- NOTE | 2018-07-26 17:15 | NUR ---
CASE MANAGEMENT: DCPNOTE UPON DISCHARGE PATIENT WILL TRANSFER TO [facility] [phone] SKILLEDROOM [address] [facility] NOTIFIED BY [place] [employer]AK[employer]UCATION TE[employer]ER MICHELL TRANSPORTATION [facility] [id number] ETA 19:30
--- NOTE | 2018-07-26 18:18 | Internal Med Progress Note ---
Subjective Date of Service: Jul 26, 2018 Physician Name Zeyad Simmons Attending Physician Wilner Suarez MD Current Medications Medications (Trade) Dose Ordered Sig/Becca Route PRN Reason Start Time Stop Time Status Last Admin Dose Admin Acetaminophen (Tylenol) 650 mg Q6H PRN GT Mild Pain/Temp > 100.5 07/17/18 08:45 08/16/18 08:44 07/26/18 06:36 Atorvastatin Calcium (Lipitor) 40 mg BEDTIME GT 07/17/18 21:00 08/16/18 20:59 07/25/18 20:42 Bisacodyl (Dulcolax) 10 mg DAILYPRN PRN RECTAL Constipation 07/17/18 08:15 08/16/18 08:14 Chlorhexidine Gluconate (Lawanda-Hex 2%) 1 applic DAILY@2000 TOPIC 07/17/18 20:00 08/16/18 19:59 07/25/18 20:03 Docusate Sodium (Colace) 200 mg TWICE A DAY PRN NG Constipation 07/17/18 10:45 08/16/18 10:44 Guaifenesin (Robitussin) 100 mg Q24H PRN GT For Cough 07/17/18 08:15 08/16/18 08:14 Heparin Sodium (Porcine) (Heparin 5000 units/ml) 5,000 units EVERY 8 HOURS SUBQ 07/17/18 14:00 08/16/18 13:59 07/26/18 13:47 Lansoprazole (Prevacid) 30 mg DAILY GT 07/17/18 09:00 08/16/18 08:59 07/26/18 08:23 Magnesium Oxide (Mag-Ox 400mg) 400 mg DAILY GT 07/17/18 09:00 08/16/18 08:59 07/26/18 08:23 Meropenem 1 gm/ Sodium Chloride 55 ml @ 110 mls/hr Q8HR IVPB 07/26/18 14:00 07/31/18 13:59 07/26/18 13:48 Midodrine (Pro-Amatine) 5 mg THREE TIMES A DAY GT 07/17/18 09:00 08/16/18 08:59 07/26/18 13:46 Pyridoxine HCl (Vitamin B6) 100 mg DAILY GT 07/17/18 09:00 2/5/19 08:59 07/26/18 08:23 Sennosides (Senokot) 17.2 mg DAILY PRN GT Constipation 07/17/18 08:15 08/16/18 08:14 Vitamin D (Vitamin D) 1,000 intlu DAILY ORAL 07/18/18 09:00 08/17/18 08:59 07/26/18 08:23 Allergies: Coded Allergies: FISH CONTAINING PRODUCTS (Verified Allergy, Unknown, Anaphylaxis, 07/20/18) Spoke to patient's mother SHELLFISH DERIVED (Verified Allergy, Unknown, Anaphylaxis, 07/20/18) Spoke to patient's mother ROS Limited/Unobtainable: Yes Subjective 52 YO M paraplegic with chronic vent dep admitted with Shortness of breath. Now LLL pneumonia and elevated troponin. On [facility] vent. Cover for Int Med-dr Suarez. [facility] Objective Last Vital Signs Date Time Temp Pulse Resp B/P (MAP) Pulse Ox O2 Delivery O2 Flow Rate FiO2 07/26/18 17:19 95 16 30 07/26/18 16:00 Mechanical Ventilator 07/26/18 12:00 98.8 120/72 (88) 100 Laboratory Tests Test 07/26/18 04:00 07/26/18 12:00 White Blood Count 11.0 K/UL (4.8-10.8) H Red Blood Count 3.11 M/UL (4.70-6.10) L Hemoglobin 9.0 G/DL (14.2-18.0) L Hematocrit 27.2 % (42.0-52.0) L Mean Corpuscular Volume 87 FL (80-99) Mean Corpuscular Hemoglobin 28.9 PG (27.0-31.0) Mean Corpuscular Hemoglobin Concent 33.1 G/DL (32.0-36.0) Red Cell Distribution Width 14.1 % (11.6-14.8) Platelet Count 262 K/UL (150-450) Mean Platelet Volume 5.9 FL (6.5-10.1) L Neutrophils (%) (Auto) 73.0 % (45.0-75.0) Lymphocytes (%) (Auto) 18.0 % (20.0-45.0) L Monocytes (%) (Auto) 7.2 % (1.0-10.0) Eosinophils (%) (Auto) 1.3 % (0.0-3.0) Basophils (%) (Auto) 0.4 % (0.0-2.0) Sodium Level 145 MMOL/L (136-145) Potassium Level 3.8 MMOL/L (3.5-5.1) Chloride Level 109 MMOL/L (98-107) H Carbon Dioxide Level 24 MMOL/L (21-32) Anion Gap 12 mmol/L (5-15) Blood Urea Nitrogen 15 mg/dL (7-18) Creatinine 0.5 MG/DL (0.55-1.30) L Estimat Glomerular Filtration Rate > 60 mL/min (>60) Glucose Level 122 MG/DL (74-106) H Calcium Level 9.1 MG/DL (8.5-10.1) Total Bilirubin 0.3 MG/DL (0.2-1.0) Aspartate Amino Transf (AST/SGOT) 38 U/L (15-37) H Alanine Aminotransferase (ALT/SGPT) 66 U/L (12-78) Alkaline Phosphatase 107 U/L (46-116) Pro-B-Type Natriuretic Peptide 191 pg/mL (0-125) H Total Protein 7.6 G/DL (6.4-8.2) Albumin 2.8 G/DL (3.4-5.0) L Globulin 4.8 g/dL Albumin/Globulin Ratio 0.6 (1.0-2.7) L Urine Color Pale yellow Urine Appearance Slightly cloudy Urine pH 8 (4.5-8.0) Urine Specific Bradley 1.010 (1.005-1.035) Urine Protein Negative (NEGATIVE) Urine Glucose (UA) Negative (NEGATIVE) Urine Ketones Negative (NEGATIVE) Urine Blood 1+ (NEGATIVE) H Urine Nitrite Negative (NEGATIVE) Urine Bilirubin Negative (NEGATIVE) Urine Urobilinogen Normal MG/DL (0.0-1.0) Urine Leukocyte Esterase 1+ (NEGATIVE) H Urine RBC 0-2 /HPF (0 - 0) H Urine WBC 2-4 /HPF (0 - 0) Urine Squamous Epithelial Cells Occasional /LPF Urine Bacteria Few /HPF (NONE) Urine Yeast Moderate /HPF (NONE) H Intake and Output 07/25/18 07/26/18 19:00 07:00 Intake Total 1275 ml 600 ml Output Total 1300 ml 1600 ml Balance -25 ml -1000 ml Intake Free Water 200 ml IV Total 325 ml Tube Feeding 550 ml 600 ml Other 200 ml Output Urine Total 1300 ml 1600 ml # Bowel Movements 1 2 Objective GENERAL: The patient is well-developed, well-nourished male, who is intubated. HEENT: Eyes, pupils equal and responsive to light and accommodation. Extraocular movements are intact. NECK: Tracheosotmy; Supple without lymphadenopathy. CHEST: Mech vent; Decreased breath sounds, left lower lobe. Otherwise, without wheezes or rales. CARDIOVASCULAR: Tachycardic, regular rhythm. S1 and S2 are normal without murmurs, rubs, gallops. ABDOMEN: Soft, nontender, and nondistended. Positive bowel sounds. No evidence of hepatosplenomegaly. Currently, no rebound or guarding noted. NEUROLOGICAL: The patient is paraplegic. Cranial nerves II through XII are grossly intact without focal deficits. Assessment/Plan Problem List: (1) Hypertension (2) Dysphagia Assessment & Plan: On G-tube feeds (3) Healthcare-associated pneumonia Assessment & Plan: Continue zosyn and vanco per pulmonary (4) Acute on chronic respiratory failure Assessment & Plan: Chronic vent dep-see pulmonary note. (5) Elevated troponin Assessment & Plan: see cardiology note. (6) Quadriplegia (7) Feeding by G-tube (8) NSTEMI (non-ST elevated myocardial infarction) Assessment & Plan: See cardiology note (9) Vegetative state Assessment/Plan Discharge to [facility] when bed available Zeyad Simmons MD Jul 26, 2018 18:18
--- NOTE | 2018-07-26 18:49 | NUR ---
NURSE NOTES: CALLED [facility], GAVE REPORT TO JOSE LUIS PETERSON. PT GOING TO ROOM 3B. TRANSPORTED BY [facility]. ETA 2029. SBAR USED. VSS
--- NOTE | 2018-07-26 19:45 | NUR ---
NURSE NOTES: Received report from MELECIO Giraldo. Patient is awake in bed. Nonverbal, able to understand communication board. No s/s of acute distress noted. Sinus rhythm on game producer. Trach-vent settings: Portex 6, AC 16, Vt 550, FiO2 30% and saturating well. Receiving Glucerna 1.5 @ 35 cc/hr via GT and tolerating well, goal is 45 cc/hr. Condom catheter in place and draining. Right upper arm PICC line intact, and patent. Bed locked in lowest position with siderails up x3. Mother at bedside, call light within reach. To be discharged this evening. Will continue to monitor.
[2018-07-26 20:00] VITALS: BP 127/78
[2018-07-26] MEDS: Dyna-Hex 2% Top Sol 2oz TOPIC SCH (20:23)
[2018-07-26] MEDS: Atorvastatin 20mg tab GT SCH (20:23)
--- NOTE | 2018-07-26 22:00 | NUR ---
NURSE NOTES: FOR TRANSFER TO [facility].EXPECTED ETA OF AMBULANCE IS 2030 PER AM CHARGE NURSE .CALLED [facility] RECREATION TECHNICIAN SAID SAID IN 20-25 MIN.
--- NOTE | 2018-07-26 23:00 | NUR ---
NURSE NOTES: CALLED [facility] ,AGAIN BUILDING MAINTENANCE REPAIRER STEPHEN SAID THEIR AMBULANCE STILL AT [facility] AND WILL BE HERE IN 45 MINUTES.
--- NOTE | 2018-07-26 23:38 | NUR ---
NURSE NOTES: Discharge delayed d/t ambulance schedule. Patient is asleep in bed. No s/s of acute distress noted. Mother is at bedside. Awaiting ambulance picker tender helper. Will continue to monitor.
[2018-07-27] VITALS: BP 115/72
--- NOTE | 2018-07-27 00:12 | NUR ---
NURSE NOTES:CALLED [facility] SPOKE TO [facility] ,AMBULANCE WILL BE HERE IN 20-25 MINUTES.
[2018-07-27] MEDS ORDERED: NS 275ml ONE (01:24)
--- NOTE | 2018-07-27 01:25 | NUR ---
NURSE NOTES: Report given to Sumeet with [facility] around 0100. Patient off the floor at 0125 to be transported to [place].
--- NOTE | 2018-07-28 16:20 | Discharge Summary ---
Discharge Summary Discharge Summary _ DATE OF ADMISSION: 07/16/2018 DATE OF DISCHARGE: 07/27/2018 ADMITTING MD: Dr. Dr. Wilner Suarez DISCHARGED BY: Dr. Milena Ross CONSULTANTS: Dr. Milena Severino BRIEF HOSPITAL COURSE: Patient is a 52-year-old male, who presented with chief complaint of fever and respiratory failure. Patient is chronically vent dependent. Patient is a resident of [facility]. The patient apparently was being suctioned and was also being weaned off from the vent. He developed acute respiratory distress and became febrile. Patient was transported to [facility]. He has medical history significant for chronic respiratory failure, dysphagia, paraplegia, hypercholesterolemia and hypertension. On evaluation at ED, patient was tachycardic. There was no IV access. Central line was inserted to the right femoral vein. Blood work showed WBC elevated to 11 with left shift. Lactic acid was elevated to 2.5 troponin was elevated to 0.325. ProBNP 542. Urinalysis showed 30-40 RBC, 5-10 WBC, 1+ leukocyte esterase, 4+ glucose, 2+ protein. EKG showed sinus tachycardia at a rate of 124 with no acute changes. Chest x-ray showed left lower lobe collapse. Patient was then admitted for evaluation of respiratory failure/collapse of the left lower and elevated troponin. Patient was admitted to [facility]. Bow Maker was consulted. He was continued on vent support. He was given nebulizer treatment. ID was consulted for evaluation of sepsis. He was given IV vancomycin and Zosyn. Urine culture showed multiple organisms. Initial blood culture did not isolate any growth. Influenza screen was negative. Employment Officer was consulted. Troponin levels were monitored. Troponin levels were elevated, however levels were flat. Echocardiogram showed ejection fraction of 55-60%. Elevated troponin was secondary to dehydration. He had episodes of hypotension and was placed midodrine. He completed 7 days of vancomycin and Zosyn. He was observed off antibiotic treatment. He then developed fever of 101 and there was increase in WBC. He was restarted on meropenem for recurrent sepsis. He was then transferred to [facility]. FINAL DIAGNOSES: Recurrent sepsis secondary to pneumonia and UTI Healthcare associated pneumonia Acute on chronic respiratory failure on vent and trach Dysphagia status post PEG Paraplegia/quadriplegia/vegetative state Hypertension Lumbar laminectomy Elevated troponin secondary to troponin leak Hypokalemia Encephalopathy Hypotension DISPOSITION: Patient was transferred to [facility] I have been assigned to dictate discharge summary on this account, and I was not involved in the patient's management. Nicole Chang NP Jul 28, 2018 16:20
== END 2018-07-27 01:25 | DRG 870 ==
LOC: EDBD 19:21 → EMR 20:30 → 2W 20:36 → EDBEDREQ 21:37
DX: A41.9 Sepsis, unspecified organism (principal); J96.20 Acute and chronic respiratory failure, unspecified whether with hypoxia or hypercapnia; J18.9 Pneumonia, unspecified organism; G82.20 Paraplegia, unspecified; R40.3 Persistent vegetative state; J98.11 Atelectasis; G93.40 Encephalopathy, unspecified; N39.0 Urinary tract infection, site not specified; Y95 Nosocomial condition; Z93.0 Tracheostomy status; E78.00 Pure hypercholesterolemia, unspecified; I10 Essential (primary) hypertension; E87.6 Hypokalemia; I95.9 Hypotension, unspecified; R13.10 Dysphagia, unspecified
CPT/HCPCS: 36415; 36569; 36600; 71045; 76937; 80048; 80053; 80202; 81003; 82550; 82803; 83605; 83690; 83735; 83880; 84100; 84484; 85007; 85025; 85610; 85730; 86710; 87040; 87070; 87081; 87086; 87181; 87205; 93005; 93306; 94002; 94003; 94640; 94664; 96361; 96365; 96367; 99285; J7620; J8499